=== PATIENT | male | born 1960 | race Caucasian/White ===

== ENCOUNTER 2017-03-24 12:20 | Inpatient (IN) ==
--- NOTE | 2017-03-24 12:42 | PDOC ---
Lower Extremity Injury HPI - General Chief Complaint: Lower Extremity Problem/Injury Stated Complaint: LEG PAIN Date Seen by Provider: 03/24/17 Time Seen by Provider: 12:37 Source: POSITIVE: Patient, Spouse Exam Limitations: POSITIVE: No limitations Nurse's Notes Reviewed & Considered: Yes - History of Present Illness Initial Comments: This is a well-developed, obese, pleasant, 56-year-old male, complaining of right calf pain. Patient with recent history of cellulitis in his left leg was hospitalized and released approximately a week ago from . After returning home, Wednesday a week ago, then on Wednesday he developed excruciating pain in his right calf that was transient. He subsequently reports the followed up with his primary care physician and an ultrasound was done showing no DVT present. This morning he had return of pain that he states is debilitating. He is unable to stand or walk when the pain happens. Of note he has bruising on his posterior calf right leg. He has positive Homans sign. He is presently on Eliquis. Have you received a tetanus shot in the past 10 years?: No Body Location Affected: REPORTS: Lower Extremity (R) Timing: REPORTS: Abrupt Duration: 1 hour Severity: Severe Quality: REPORTS: "Pain", Sharpness, Stabbing, Throbbing Location at Time of Onset: REPORTS: Home Context of Injury: DENIES: Fall, Twist, Direct Blow, Incision, Burn, Crush, Stab , Prolonged Pressure on Ext, Other Location of Injury: REPORTS: Leg (R) (Right calf) Modifying Factors: worse with: Nothing Exacerbates, Walking, Movement, Rest, Ice , Nothing Relieves, Other Associated Symptoms: REPORTS: Unable to Bear Weight Any Prior Injuries Related to Current Complaint?: No - Patient Home Medications Home Medications: Home Medications aspirin 81 mg tablet,delayed release 81 mg PO QDAY tab 11/30/16 furosemide 40 mg tablet 40 mg PO QDAY #90 tab 11/30/16 potassium chloride ER 20 mEq tablet,extended release(part/cryst) 20 meq PO QDAY #90 tab 11/30/16 venlafaxine ER 150 mg capsule,extended release 24 hr 150 mg PO QDAY cap Apixaban [Eliquis] 5 mg PO BID 03/24/17 Multivitamin [Men's Multi-Vitamin] 1 ea PO DAILY 03/24/17 Vit D3-Vit K/Berberine/Hops [Ostera Tablet] 1 ea PO DAILY 03/24/17 - Patient Allergies Allergies/Adverse Reactions: Allergies 3 Allergy/AdvReac Type Severity Reaction Status Date / Time No Known Drug Allergies Allergy NOT Verified 03/24/17 12:33 APPLICABLE Past Medical History - heen HEENT History: Denies History Cardiovascular History: DVTs Additional Cardiovasular History: In left groin due to injury, PERICARDITIS Respiratory History: Pneumonia, Snoring Additional Respiratory History: RECURRENT MAXILLARY SINUSITIS,BRONCHITIS Gastrointestinal History: Diverticulitis Genitourinary History: Kidney Stones Additional Genitourinary History: 2001 Endocrine History: Denies History Musculoskeletal History: Arthritis, Other (please comment) Prosthesis or Implant: No Additional Musculoskeletal History: 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 SIG LE ,VENOUS INCOMPETENCE,MORBID OBESITY Neurological History: Denies History Blood Disorders: Anemia Additional Blood Disorders History: Was told that by [facility] Psychiatric History: Depression, PTSD History of Sexually Transmitted Diseases: No Cancer History: Denies History History of MDRO: No History of Other Communicable Diseases: Yes (Varicella) Alcohol Use: Occasionally In the Past 12 Months, Have Used or Abuse Any Substance: None Previous Surgical History: Yes Type / Date of Surgery: R elbow cyst 1983/[place] teeth/Removal of impacted tooth in 1973 Anesthesia Reactions: No Malignant Hyperthermia: No Significant Family History: Other (please comment) Additional Family History: POLIO,IBS,RHEUMATIC FEVER ROS - Limitations ROS Limitations: No Limitations Constitution: REPORTS: Denies Symptoms Cardiovascular: REPORTS: Denies Cardiac Symptoms Respiratory: REPORTS: Denies Resp Symptoms Neurological: REPORTS: Denies Neuro Symptoms Gastrointestinal: REPORTS: Denies GI Symptoms Endocrine: REPORTS: Denies Symptoms Musculoskeletal: REPORTS: Lower Extremity Swelling (With right calf pain and bruising) Genitourinary: REPORTS: Denies Symptoms Eyes: REPORTS: Denies Symptoms ENT: REPORTS: Denies Symptoms Skin: REPORTS: Denies Skin Symptoms Lympathic: REPORTS: Denies Lympathic Symptoms Immunologic: POSITIVE: Denies Symptoms Psychiatric: POSITIVE: Denies Psych Symptoms Lower Ext Complaint Exam - General Appearance General Appearance: POSITIVE: Alert, Cooperative, No Acute Distress, No Evidence of Trauma - Extremities Lower Extremity: POSITIVE: Normal ROM, Normal Temperature, Skin Intact, Soft Tissue Tenderness, Swelling, Ecchymosis Lower Extremity Ligament: NEGATIVE: Pain on Anterior Drawer, Pain on Posterior Drawer, Laxity on Anterior Drawer, Laxity w/Posterior Drawer, Pain on Medial Stress, Pain on Lateral Stress, Laxity on Medial Stress, Laxity on Lateral Stress, Other Gait: POSITIVE: Limited by Pain Neurovascular/Tendon: POSITIVE: Sensation Normal, Motor Normal, No Vascular Compromise Skin: POSITIVE: Warm, Dry - HEENT HEENT: POSITIVE: Head Inspection Nml, Eyes Inspection Nml, Ears Inspection Nml, Nose Inspection Nml, Oral/Dental Inspect. Nml, Pharynx Inspect. Nml, PERRL, EOMI - Neck / Back Neck/Back: POSITIVE: Normal Inspection, Non-Tender, Painless ROM - Respiratory / CVS Respiratory / CVS: POSITIVE: Chest Non Tender, No Ecchymosis, Breath Sounds Normal, No Respiratory Distress, Heart Sounds Normal, Regular Rate/Rhythm - Abdomen Abdomen: Soft: (All Quadrants), Normal Bowel Sounds: (All Quadrants), Denies Tenderness: (All Quadrants), No Splenomegaly: (All Quadrants), No Hepatomegaly: (All Quadrants), No Guarding: (All Quadrants), No Rebound: (All Quadrants), No Palpable Pulse: (All Quadrants), No Palpabale Mass: (All Quadrants), No Distention: (All Quadrants), No Rigidity: (All Quadrants) Procedures - Laceration/Wound Repair Did patient have a laceration repair: No Lower Ext Complaint Progress - Results Reviewed by me Xrays/CTs/US Reviewed by me: Yes Discussed with Radiologist: Yes Lab Results Reviewed by Me: Yes CBC and BMP: 03/24/17 14:00 03/24/17 14:00 - Patient's Progress Pain Medication Addressed: POSITIVE: Yes Re-Examine Time:: 15:04 Status: POSITIVE: Improved MDM / ED Course: Patient was evaluated, an IV started, blood drawn and sent to the lab for studies, ultrasound of his right lower extreme he was obtained. Findings: Ultrasound shows no DVT present, there is present edema in the gastrocnemius. CBC shows white count of 4 with anemia present. BNP is elevated at 350. Assessment: #1 cellulitis, presently on IV antibiotics. #2 increased edema and swelling in the right calf. #3 anemia. Plan: Admission. - Consult Consult (If Yes, Name of Consulting MD & Time Called): Yes (Dr. Ramirez, 1433 hrs) Consulting [facility] will see pt:: [facility] Admit Counseled: POSITIVE: Patient, Family, RE: Lab Results, RE: Radiology Results, RE : DX, RE: Need for F/U Patient Care Time - Estimated PCT Patient Care Time (In Minutes): 45 Vital Signs - Recent Vital Signs Vital Signs: Vital Signs (Last 8 hours) Temp Pulse Pulse Resp BP BP Pulse Ox 03/24/17 14:36 96.8 F 79 18 124/85 92 03/24/17 12:00 96.8 F 80 18 124/85 92 - VS Reviewed Vital Signs Reviewed: Yes Discharge Clinical Impression: Anemia, Leg pain, Cellulitis, Lymphedema Discharge Disposition: Admit to Inpatient Condition: Stable Follow Up With: HANNA FUENTES [Primary Care Provider] - Date Decision to Admit to Inpatient: 03/24/17 Time Decision to Admit to Inpatient: 16:04
[2017-03-24] MEDS ORDERED: HEPARIN 500 UNIT/5 ML SYRINGE FOR CENTRAL LINE IVP ONE ×4 (13:48→22:18)
[2017-03-24 14:10] LABS: BASOPHILS # (AUTO) 0.02 10*3/UL; BASOPHILS % (AUTO) 0.4 % (0-1); EOSINOPHILS # (AUTO) 0.11 10*3/UL; EOSINOPHILS % (AUTO) 2.4 % (0-8); Hematocrit [HCT] 31.9 % (42.0-52.0); Hemoglobin [HGB] 9.7 g/dL (14.0-18.0); LYMPHOCYTES # (AUTO) 0.63 10*3/uL; MEAN CORPUSCULAR HEMOGLOBIN 28.1 PG (27-31); MEAN CORPUSCULAR HGB CONC 30.4 g/dL (33-37); MEAN CORPUSCULAR VOLUME 92.5 FL (80-90); MEAN PLATELET VOLUME 9.3 FL (7.4-12.2); MONOCYTES # (AUTO) 0.53 10*3/UL (0.3-0.8); MONOCYTES % (AUTO) 11.6 % (5-15); NEUTROPHILS # (AUTO) 3.26 10*3/UL; NEUTROPHILS % (AUTO) 71.1 % (50-80); RED BLOOD COUNT 3.45 10^6/uL (4.70-6.10)
[2017-03-24 14:13] LABS: PLATELET MORPHOLOGY COMMENT NORMAL MORPHOLOGY (NORM); RBC MORPHOLOGY COMMENT NORMAL MORPHOLOGY (NORM); WBC MORPHOLOGY COMMENT NORMAL MORPHOLOGY (NORM)
--- NOTE | 2017-03-24 14:14 | DI ---
US Up/Low Ext Veins U/L or Ltd,03/24/2017 12:36 PM: Clinical History: Right lower extremity swelling. Previous Exam: None at this facility. Findings: Multiple grayscale and color Doppler sonographic images are obtained of the deep veins of the right l ower extremity. The common femoral vein demonstrated complete coaptation upon graded compression with normal flow, respiratory variation and augmentation. The superficial femoral vein was normal proximally with normal coaptation upon graded compression. Th e vein could not be compressed, but this was believed to be due to body habitus rather than inability for compression. There was normal flow throughout the superficial femoral vein without any evidence of obstruction. There is normal respiratory variation and mentation. The popliteal vein is normal with normal compression and augmentation. The area of maximum tenderness correspond with a large amount of edema within the subcutaneous fat. T here is no large fluid collection. There is a large superficial vein identified with slow flow within the cyst. Of tenderness consistent with a venous varix. Impression: 1. Limited exam with no evidence of deep venous thrombosis. 2. Swelling in the posterior calf appears to be a large amount of subcutaneous edema. No large fluid collection identified.
[2017-03-24 14:17] LABS: BLOOD UREA NITROGEN 12 mg/dL (7-22); BUN/CREATININE RATIO 17.14 (6-20); SERUM ALBUMIN 3.2 g/dL (3.5-4.8)
[2017-03-24] MEDS ORDERED: ONDANSETRON 4 MG/2 ML VIAL IVP ONE (14:31)
[2017-03-24] MEDS ORDERED: LORazepam 2 MG/1 ML VIAL IM ONE (14:31)
[2017-03-24] MEDS ORDERED: KETOROLAC 15 MG/1 ML VIAL IVP ONE (14:31)
[2017-03-24] MEDS ORDERED: NORMAL SALINE 10 ML SYRINGE FLUSH IVP PRN (14:55)
[2017-03-24] MEDS ORDERED: CALCIUM CARBONATE 500 MG (TUMS) CHEWABLE TABLET PO PRN (16:43)
[2017-03-24] MEDS ORDERED: LIDOCAINE W/ SODIUM BICARB 0.5 ML SYR SUBD PRN (16:43)
[2017-03-24] MEDS ORDERED: ACETAMINOPHEN 325 MG TABLET PO PRN (16:43)
[2017-03-24] MEDS ORDERED: DOCUSATE 100 MG CAPSULE PO PRN (16:43)
[2017-03-24] MEDS ORDERED: ONDANSETRON 4 MG/2 ML VIAL IVP PRN (16:43)
--- NOTE | 2017-03-24 19:45 | DI ---
XR TIB/FIB 2VW,03/24/2017 6:52 PM: Clinical History: Right calf pain. Previous Exam: February 02, 2013 Findings: 4 views of the right tibia and fibula are obtained, and demonstrate anatomic alignment without fractu res. There are some phleboliths noted within the subcutaneous fat. The anterior compartment demonstrates some osteophyte formation involving the undersurface of the pat meghana. There is also some osteophyte formation involving the medial tibial plateau. Impression: Degenerative changes of the medial and anterior compartments as above. No fractures.
--- NOTE | 2017-03-24 19:56 | PDOC ---
HPI - History of Present Illness Date of Service: 03/24/17 Time of Service: 19:00 Chief Complaint: Right calf pain History of Present Illness: This very pleasant 56-year-old male with morbid obesity, chronic lymphedema, and depression is well-controlled, and a recent left lower extremity cellulitis. He states that the cellulitis is been improving, but when he was at [facility], he was given several laxatives and he had to use the restroom fairly urgently, and as he swung over the bed, he smacked his right calf on the bed rail. It has hurt to walk and to keep his foot flat since that time. The pain is been gradually getting worse, but is not accompanied with any worsening fevers, chills, nausea or vomiting. He's not had a pain in the calf like this before. He came in for evaluation today as he's had difficulty getting out of his chair and has had decreased mobility due to this calf pain. His medications have only been doubling the pain and have not been controlling it. I spoke with both the radiologist and with orthopedics regarding this patient. The patient had an ultrasound done in the emergency room that did not show any evidence of vein compression and showed mainly subcutaneous edema. However when I spoke with the radiologist, there was no evidence of any compartment fluid, or deep fluid or hematoma or muscular edema. The patient exceeds the weight limit for the tables here for CT scanning or MRI scanning for further diagnostic imaging if planned. I got an x-ray of the tibia and fibula as well and it was negative for any acute fractures. It was felt that the patient might do better with physical therapy but I think in an acute setting, it was unclear whether or not there could be something going on here such as a compartment syndrome. I did a Doppler pulses and pulses are intact bilaterally., But the right foot is slightly cooler on exam versus the left. The patient attributed that to his right foot not being covered in the emergency room. The patient was using Percocet at home for pain, but this was from a prior issue and the Percocet was fairly dated. Past Medical History Medical History: Depression, morbid obesity, chronic venous insufficiency, recent pulmonary emboli, provoked, superficial DVT left side that went to the junction of the common femoral vein. Obstructive sleep apnea. Surgical History: 1. Prior extremity surgery. Pertinent Family History: Significant for obesity. He's also learned that one of his brothers has had several bouts of soft tissue skin infections. Past Social History: Does not currently smoke or drink. . No children. Tobacco Use: Never Smoker In the Past 12 Months, Have Used or Abuse Any of the Following Substance: None Alcohol Use: None Medication / Allergies Home Medications: Home Medications 3 Medication Instructions Recorded Confirmed Type aspirin 81 mg tablet,delayed 81 mg PO QDAY tab 11/30/16 03/24/17 History release furosemide 40 mg tablet 40 mg PO QDAY #90 tab 11/30/16 03/24/17 Rx potassium chloride ER 20 mEq 20 meq PO QDAY #90 tab 11/30/16 03/24/17 Rx tablet,extended release(part/cryst) venlafaxine ER 150 mg 150 mg PO QDAY cap 11/30/16 03/24/17 History capsule,extended release 24 hr Apixaban [Eliquis] 5 mg PO BID 03/24/17 03/24/17 History Multivitamin [Men's Multi-Vitamin] 1 ea PO DAILY 03/24/17 03/24/17 History Vit D3-Vit K/Berberine/Hops 1 ea PO DAILY 03/24/17 03/24/17 History [Ostera Tablet] Allergies/Adverse Reactions: Allergies 3 Allergy/AdvReac Type Severity Reaction Status Date / Time No Known Drug Allergies Allergy NOT Verified 03/24/17 17:37 APPLICABLE Review of Systems - Constitutional Constitutional: REPORTS: Negative System Review - Integumentary Integumentary: REPORTS: Other (Cellulitis has improved.) - Respiratory Respiratory: REPORTS: Negative System Review - Cardiovascular Cardiovascular: REPORTS: Negative System Review - Gastrointestinal Gastrointestinal / Abdominal: REPORTS: Negative System Review - Genitourinary Genitourinary: REPORTS: Negative System Review - Musculoskeletal Musculoskeletal: REPORTS: Calf Pain - Hematlogic / Lymphatic Hematologic / Lymphatic: REPORTS: Other (Pulmonary emboli as mentioned.) - Neurological Neurologic: REPORTS: Negative System Review - Psychiatric Psychiatric: REPORTS: Depressed (Well-controlled.) Exam - Vitals Vital Signs: Vital Signs Temperature 98.7 F Temperature Source Oral Pulse Rate [Pulse Oximeter 82 Bilateral Radial] Pulse Rate 78 Respiratory Rate 14 Blood Pressure [Right Arm] 121/49 Blood Pressure 126/70 Pulse Ox 98 Oxygen Delivery Method Room Air Height 6 ft 1 in Weight 408 lb - General General Appearance: No Acute Distress, Cooperative, Morbidly Obese - Head Head Exam: Normal Inspection, Normocephalic, Atraumatic - Eye Eye Exam: POSITIVE: No Scleral Icterus - ENT ENT Exam: POSITIVE: Mucous Membranes Moist - Neck Neck Exam: Normal Inspection - Respiratory Respiratory Exam: POSITIVE: Clear to Auscultation - Bilaterally, Breathing Non Labored - Cardiovascular Cardiovascular Exam: POSITIVE: RRR, No Murmur, No Clicks, No Gallops, No Rubs, No JVD - GI/Abdominal GI/Abdominal Exam: POSITIVE: Normal Bowel Sounds, Non Tender, Non Distended, Soft - Rectal Rectal Exam: POSITIVE: Deferred - External Exam: POSITIVE: Deferred - Extremities Extremities Exam: POSITIVE: Calf Tenderness, +2 Edema Additional Extremities Exam Details: The erythema on the left lower extremity has significantly improved from prior hospital stay. In fact this left foot appears more normal colored and senescent changes consistent with chronic venous stasis are noted. Dorsalis pedis pulses are dopplered bilaterally and are strong and regular. The right calf is tender to palpation, no erythema or anything to suggest acute infection. He has limited dorsiflexion and plantar flexion on the right foot. On the left medial thigh just superior to the knee, patient still has increased edema/fluid collection that's tender to palpation, but no increased warmth to that area to suggest an abscess. - Neurological Neurological Exam: POSITIVE: Alert, Oriented x 3, No Facial Droop, Speech Intact / Clear - Psychiatric Psychiatric Exam: POSITIVE: Normal Affect, Normal Mood - Central Line Examination Central Line Present on Admission: Yes Central Line Type: PICC Line (Left upper extremity, without erythema or exudate or surrounding soft tissue problems.) Results - Labs CBC and BMP: 03/24/17 14:00 03/24/17 14:00 Additional Lab Results: 03/10/17 03/10/17 03/24/17 04:46 04:46 14:00 PT 13.5 H INR 1.27 Magnesium Iron 36 L TIBC 201 L % Saturation 18 Total Bilirubin AST ALT Total Creatine Kinase NT-Pro-B Natriuret Pep Total Protein Albumin Globulin Vitamin B12 946 H Serum Folate 6.04 03/24/17 03/24/17 14:00 16:00 PT INR Magnesium 1.7 Iron TIBC % Saturation Total Bilirubin 0.7 AST 29 ALT 9 L Total Creatine Kinase 144 NT-Pro-B Natriuret Pep 354 H Total Protein 7.6 Albumin 3.2 L Globulin 4.4 H Vitamin B12 Serum Folate Assessment and Plan - Patient Problems (1) Cellulitis Current Visit: No Status: Acute Code(s): L03.90 - Cellulitis, unspecified (2) Lymphedema Current Visit: Yes Status: Acute Code(s): I89.0 - Lymphedema, not elsewhere classified (3) History of pulmonary embolism Current Visit: Yes Status: Acute Code(s): Z86.711 - Personal history of pulmonary embolism (4) Morbid obesity Current Visit: No Status: Chronic Onset Date: 03/10/11 Code(s): E66.01 - Morbid (severe) obesity due to excess calories (5) Depression, major, in remission Current Visit: No Status: Chronic Onset Date: 11/05/15 Code(s): F32.5 - Major depressive disorder, single episode, in full remission - Assessment / Plan Additional Assessment/Plan Details: Admit the patient. I'll have the patient continue his home medications, right for pain medications to help manage right lower extremity pain, and I will consult orthopedics. I spoke with Dr. Acosta, and he thinks it would be prudent for us to explore further for possible muscle tears or strains using MRI. Given weight restrictions, will check on whether or not the patient would be able to do that here or whether we will have to arrange this to be done at another facility. Continue outpatient antibiotics, Ancef, 2 g IV every 8 hours. He has this already from his infectious disease provider, and in lieu of using the antibiotics in the hospital, we will have him use his home medications as he's already paid for those. Nonweightbearing right lower extremity for now. Given his morbid obesity, this patient will not even be able to move around without assistance due to his weight. He will need help until we can further delineate this differential diagnosis. Check labs in morning. PT and OT consult. Plan above discussed with patient and , and they agreed. The patient's weakness is been so profound in the setting of a cellulitis, his obesity, and development of right lower extremity pain, that he may need swing bed for further management.
[2017-03-24] MEDS: Apixaban 5 MG TABLET PO SCH (20:03)
--- NOTE | 2017-03-24 20:59 | CONSULT ---
Consult Note - Consult Consult Date: 03/24/17 Reason for Consult: Orthopedic Consult Requesting Physician: Dr. Ezequiel Landa Primary Care Provider: Ozzy Tobin MD - History of Present Illness History of Present Illness: Patient is a 56-year-old male with multiple medical problems including chronic venous stasis issues in his lower extremities intermittent bouts of cellulitis recent pulmonary embolism with deep vein thromboses in the left lower extremity and recent hospitalization for this therapeutically treated with our question now on eloquence 5 mg twice a day. Patient has a very complex history in that [place] [facility] [place] with what was felt to be chronic venous types changes combined with a cellulitis. Proximally 5 days later the patient was transferred [place] [facility] [place] embolism and deep vein thromboses which was identified. Patient was hospitalized in [place] until March 20. While in the hospital to [facility] patient admitted to the bathroom suddenly for bowel movement and while getting out of bed he swelling in the left leg which had the deep vein thromboses and over the side of the bed which had an elevated rim in order to prevent people from getting out but his right leg hit the side of this and he had pain associated with it at that time. Patient notes that that probably happened somewhere towards the end of February. He notes that it hurt for a short time and then went away and was doing fine until a few days later when he had severe cramping pain in the calf which is described as similar to waking at night with cramping in the calf musculature and described as 10 over 10 pain. This eventually improved to the point where he had some achiness and posterior cramping type discomfort but was very tolerable. Patient had a similar episode around March 20 that behaved in the similar manner. Patient then had another episode this morning when he first got out of bed he put his foot down and had severe cramping type pain in the calf musculature that he described as 10 over 10 that he states was not helped by oral narcotic medications. Patient does not tolerate oral narcotic medication well so he was taken half of a Percocet tablet approximately 2.5 mg in was not taking this often because of his difficulty tolerating these medications. Patient came to the emergency room because of the continued symptoms and was evaluated and admitted. At the current time the patient has not had any oral pain medication nor has he had any IV pain medication. He describes his pain as maybe 2 out of 10 in the sitting position but certainly with any weightbearing activities escalates significantly and notes with certain positions of the ankle produce pain in the calf also he had an ultrasound which showed a lot of edema within the soft tissues no clear abnormality of the calf musculature no evidence of deep vein thromboses. Patient notes he has mild bruising of the back aspect of the calf where he hit his leg on the rim of the bed while at [facility]. Past Medical History Medical History: Depression, morbid obesity, chronic venous insufficiency, recent pulmonary emboli, provoked, superficial DVT left side that went to the junction of the common femoral vein. Obstructive sleep apnea. Surgical History: 1. Prior extremity surgery. Pertinent Family History: Significant for obesity. He's also learned that one of his brothers has had several bouts of soft tissue skin infections. Past Social History: Does not currently smoke or drink. . No children. Tobacco Use: Never Smoker In the Past 12 Months, Have Used or Abuse Any of the Following Substance: None Alcohol Use: None Medication / Allergies Home Medications: Home Medications 3 Medication Instructions Recorded Confirmed Type aspirin 81 mg tablet,delayed 81 mg PO QDAY tab 11/30/16 03/24/17 History release furosemide 40 mg tablet 40 mg PO QDAY #90 tab 11/30/16 03/24/17 Rx potassium chloride ER 20 mEq 20 meq PO QDAY #90 tab 11/30/16 03/24/17 Rx tablet,extended release(part/cryst) venlafaxine ER 150 mg 150 mg PO QDAY cap 11/30/16 03/24/17 History capsule,extended release 24 hr Apixaban [Eliquis] 5 mg PO BID 03/24/17 03/24/17 History Multivitamin [Men's Multi-Vitamin] 1 ea PO DAILY 03/24/17 03/24/17 History Vit D3-Vit K/Berberine/Hops 1 ea PO DAILY 03/24/17 03/24/17 History [Ostera Tablet] Allergies/Adverse Reactions: Allergies 3 Allergy/AdvReac Type Severity Reaction Status Date / Time No Known Drug Allergies Allergy NOT Verified 03/24/17 17:37 APPLICABLE Exam - - Exam: Examination shows that the patient is a well-developed well-nourished male with a markedly elevated BMI comfortable in bed at time of examination and history taking. Patient able to speak and a full clear sentences he is alert and oriented 3. Did not appear to be in any unusual degree of discomfort or pain. Examination of the lower extremity the patient has a marked amount of pitting edema. He has no pain or discomfort with palpation along the anterior lateral muscle compartments. Patient has an area of a very small superficial healed abrasion on the posterior aspect of the calf about 12 cm below the popliteal fossa crease there is a very faint bruising in that area but the skin blanches and look healthy he is quite tender directly in the midportion of her calf and this gets last when you go medially and laterally to this. Of involvement is approximately 8 cm wide to 10 cm wide by about a corresponding 8 cm in length pop at the level of the knee joint in the popliteal fossa with palpation and on the upper portion of the gastrocs he has no pain with palpation he also has no pain distal to this area all along the Achilles the gastrocnemius and soleus region. He can move his toes actively to full extension and full flexion with no pain or discomfort with passive stretch E toes does not have any pain or discomfort you can dorsiflex him to neutral position where he has pain in the calf region. He can plantar flex him to about 40 any has a little bit of pain but less so in the musculature. Patient was strongly pulses brisk refill normal sensory exam and generally normal motor examination chronic venous stasis changes in the lower extremity. No areas of skin breakdown. Achilles tendon is intact Radiographs of the tibia show a lot of soft tissue edema in the subcutaneous tissue but no evidence of fractures or dislocations. Ultrasound report was that the patient had a lot of soft tissue/subcutaneous tissue edema the musculature looked generally benign posteriorly there was a vein was very sluggish blood flow. No evidence of deep vein thromboses. Laboratory Results 03/24/17 03/24/17 03/24/17 Range/Units 14:00 14:00 14:00 WBC 4.58 L (4.8-10.8) 10^3/uL RBC 3.45 L (4.70-6.10) 10^6/uL Hgb 9.7 L (14.0-18.0) g/dL Hct 31.9 L (42.0-52.0) % MCV 92.5 H (80-90) FL MCH 28.1 (27-31) PG MCHC 30.4 L (33-37) g/dL RDW Std Deviation 48.0 (39-50) fL RDW Coeff of Roxanne 14.9 H (11.5-14.5) % Plt Count 263 (140-350) 10*3/uL MPV 9.3 (7.4-12.2) FL Immature Gran % (Auto) 0.7 (0-5) % Neut % (Auto) 71.1 (50-80) % Lymph % (Auto) 13.8 (10-50) % [place] % (Auto) 11.6 (5-15) % Eos % (Auto) 2.4 (0-8) % Baso % (Auto) 0.4 (0-1) % Immature Gran # (Auto) 0.03 10*3/UL Neut # (Auto) 3.26 10*3/UL Lymph # (Auto) 0.63 10*3/uL [place] # (Auto) 0.53 (0.3-0.8) 10*3/UL Eos # (Auto) 0.11 10*3/UL Baso # (Auto) 0.02 10*3/UL WBC Morphology Comment Normal morphology (NORM) Plt Morphology Comment Normal morphology (NORM) RBC Morph Comment Normal morphology (NORM) PT 13.5 H (9.7-11.4) secs INR 1.27 (0.00-5.90) N/A Sodium 137 (135-145) meq/L Potassium 4.0 (3.8-5.2) meq/L Chloride 99 (98-112) meq/L Carbon Dioxide 30 (23-33) meq/L Anion Gap 8 (5-20) BUN 12 (7-22) mg/dL Creatinine 0.7 (0.70-1.50) mg/dL Estimated GFR > 60 (>60 ml/min/1.73m(2)) BUN/Creatinine Ratio 17.14 (6-20) Glucose 95 (78-110) mg/dL Calculated Osmolality 283.0 (267-292) mOsm/kg Calcium 8.2 L (8.7-10.7) mg/dL Magnesium 1.7 (1.6-2.4) mg/dL Total Bilirubin 0.7 (0.3-1.2) mg/dL AST 29 (21-57) IU/L ALT 9 L (21-72) IU/L Alkaline Phosphatase 144 H (38-126) IU/L Total Creatine Kinase (55-170) IU/L NT-Pro-B Natriuret Pep 354 H (0-125) PG/ML Total Protein 7.6 (6.1-8.0) g/dL Albumin 3.2 L (3.5-4.8) g/dL Globulin 4.4 H (2.50-4.10) g/dL Albumin/Globulin Ratio 0.70 L (1.3-2.0) mg/g 03/24/17 Range/Units 16:00 WBC (4.8-10.8) 10^3/uL RBC (4.70-6.10) 10^6/uL Hgb (14.0-18.0) g/dL Hct (42.0-52.0) % MCV (80-90) FL MCH (27-31) PG MCHC (33-37) g/dL RDW Std Deviation (39-50) fL RDW Coeff of Roxanne (11.5-14.5) % Plt Count (140-350) 10*3/uL MPV (7.4-12.2) FL Immature Gran % (Auto) (0-5) % Neut % (Auto) (50-80) % Lymph % (Auto) (10-50) % [place] % (Auto) (5-15) % Eos % (Auto) (0-8) % Baso % (Auto) (0-1) % Immature Gran # (Auto) 10*3/UL Neut # (Auto) 10*3/UL Lymph # (Auto) 10*3/uL [place] # (Auto) (0.3-0.8) 10*3/UL Eos # (Auto) 10*3/UL Baso # (Auto) 10*3/UL WBC Morphology Comment (NORM) Plt Morphology Comment (NORM) RBC Morph Comment (NORM) PT (9.7-11.4) secs INR (0.00-5.90) N/A Sodium (135-145) meq/L Potassium (3.8-5.2) meq/L Chloride (98-112) meq/L Carbon Dioxide (23-33) meq/L Anion Gap (5-20) BUN (7-22) mg/dL Creatinine (0.70-1.50) mg/dL Estimated GFR (>60 ml/min/1.73m(2)) BUN/Creatinine Ratio (6-20) Glucose (78-110) mg/dL Calculated Osmolality (267-292) mOsm/kg Calcium (8.7-10.7) mg/dL Magnesium (1.6-2.4) mg/dL Total Bilirubin (0.3-1.2) mg/dL AST (21-57) IU/L ALT (21-72) IU/L Alkaline Phosphatase (38-126) IU/L Total Creatine Kinase 144 (55-170) IU/L NT-Pro-B Natriuret Pep (0-125) PG/ML Total Protein (6.1-8.0) g/dL Albumin (3.5-4.8) g/dL Globulin (2.50-4.10) g/dL Albumin/Globulin Ratio (1.3-2.0) mg/g Vital Signs (24 hrs) Temp Pulse Pulse Pulse Resp BP BP 03/24/17 20:04 97.2 F 82 20 03/24/17 19:00 80 82 03/24/17 17:21 98.7 F 82 14 03/24/17 17:05 98.1 F 78 126/70 03/24/17 14:36 96.8 F 79 18 124/85 03/24/17 12:20 96.8 F 80 18 BP Pulse Ox 03/24/17 20:04 106/48 93 03/24/17 19:00 03/24/17 17:21 121/49 98 03/24/17 17:05 94 03/24/17 14:36 92 03/24/17 12:20 124/85 92 - Vitals Vital Signs: Vital Signs Temperature 97.2 F Temperature Source Temporal Artery Scan Pulse Rate [Pulse Oximeter 82 Bilateral Radial] Pulse Rate 78 Respiratory Rate 20 Blood Pressure [Right Arm] 106/48 Blood Pressure 126/70 Pulse Ox 93 Oxygen Delivery Method Room Air Height 6 ft 1 in Weight 185.066 kg Results - Labs CBC and BMP: 03/24/17 14:00 03/24/17 14:00 Assessment and Plan - Assessment / Plan Additional Assessment/Plan Details: Impression: Chronic venous stasis changes lower extremities with history of deep vein thromboses and pulmonary embolism and recent past currently anticoagulated on eloquis. No clear deep vein thromboses visualized though this could be difficult to low the popliteal fossa with visualization and there was also a potential question of a slow blood flow in the posterior venous structures in the subcutaneous tissues. I do not suspect in my opinion that the patient has compartment syndrome based on the history and clinical exam. Plan: Patient will be observed carefully since his symptoms have improved considerably down to a level II at rest we will follow him along. I suspect that this is likely a muscle strain I think to help delineate this better it may be prudent to evaluate this further with an MRI of the lower extremity to evaluate the gastrocnemius musculature fascia and surrounding tissue. I think he can mobilize with therapy and nursing but I would have him nonweightbearing on the involved right side. Elevation and protection at the current time
[2017-03-24] MEDS: traMADol 50 MG TABLET PO PRN (22:53)
[2017-03-24] MEDS: Methocarbamol Tab 500 MG TAB PO PRN (22:53)
[2017-03-24] MEDS: CEFAZOLIN IV SCH (22:54)
[2017-03-24] MEDS: [UNRECOGNIZED DRUG - OTHER] IV SCH (22:54)
[2017-03-25] MEDS: Methocarbamol Tab 500 MG TAB PO PRN ×2 (05:34→18:22)
[2017-03-25] MEDS: CEFAZOLIN IV SCH ×3 (05:34→20:59)
[2017-03-25] MEDS: [UNRECOGNIZED DRUG - OTHER] IV SCH ×3 (05:34→20:59)
[2017-03-25] MEDS: traMADol 50 MG TABLET PO PRN ×2 (05:34→18:22)
[2017-03-25] MEDS ORDERED: HEPARIN 500 UNIT/5 ML SYRINGE FOR CENTRAL LINE IVP PRN (05:35)
[2017-03-25 05:39] LABS: BASOPHILS # (AUTO) 0.02 10*3/UL; BASOPHILS % (AUTO) 0.5 % (0-1); EOSINOPHILS # (AUTO) 0.07 10*3/UL; EOSINOPHILS % (AUTO) 1.7 % (0-8); Hematocrit [HCT] 29.1 % (42.0-52.0); Hemoglobin [HGB] 8.8 g/dL (14.0-18.0); LYMPHOCYTES # (AUTO) 0.63 10*3/uL; MEAN CORPUSCULAR HGB CONC 30.2 g/dL (33-37); MEAN CORPUSCULAR VOLUME 92.7 FL (80-90); MEAN PLATELET VOLUME 9.3 FL (7.4-12.2); MONOCYTES # (AUTO) 0.45 10*3/UL (0.3-0.8); MONOCYTES % (AUTO) 11.2 % (5-15); NEUTROPHILS # (AUTO) 2.83 10*3/UL; NEUTROPHILS % (AUTO) 70.4 % (50-80); RED BLOOD COUNT 3.14 10^6/uL (4.70-6.10)
[2017-03-25 05:41] LABS: PLATELET MORPHOLOGY COMMENT NORMAL MORPHOLOGY (NORM); RBC MORPHOLOGY COMMENT NORMAL MORPHOLOGY (NORM); WBC MORPHOLOGY COMMENT NORMAL MORPHOLOGY (NORM)
[2017-03-25 05:46] LABS: BLOOD UREA NITROGEN 12 mg/dL (7-22); BUN/CREATININE RATIO 17.14 (6-20)
--- NOTE | 2017-03-25 08:52 | ORTHO.PROG ---
Last Taken Vital Signs: Vital Signs - Last Taken Temperature 97.7 F 03/25/17 06:58 Pulse Rate 84 03/25/17 06:58 Respiratory Rate 20 03/25/17 06:58 Blood Pressure 106/56 03/25/17 06:58 Pulse Ox 92 03/25/17 06:58 Subjective: Right calf pain has decreased considerably from yesterday Objective: Examination shows tenderness in the midportion of the calf unknown proximally over the upper portion of the gastroc heads or distally and the distal two thirds of the tibia. Dorsiflexion to neutral plantar flexion to 50 toe motion normal sensory exam is intact. No passive stretch pain. No skin breakdown. Mild ecchymosis posterior calf with a small very superficial area of abrasion may be a 4 x 4 millimeters in 2 separate areas but this looks perfectly healthy and normal Laboratory Results 03/24/17 03/24/17 03/24/17 Range/Units 14:00 14:00 14:00 WBC 4.58 L (4.8-10.8) 10^3/uL RBC 3.45 L (4.70-6.10) 10^6/uL Hgb 9.7 L (14.0-18.0) g/dL Hct 31.9 L (42.0-52.0) % MCV 92.5 H (80-90) FL MCH 28.1 (27-31) PG MCHC 30.4 L (33-37) g/dL RDW Std Deviation 48.0 (39-50) fL RDW Coeff of Roxanne 14.9 H (11.5-14.5) % Plt Count 263 (140-350) 10*3/uL MPV 9.3 (7.4-12.2) FL Immature Gran % (Auto) 0.7 (0-5) % Neut % (Auto) 71.1 (50-80) % Lymph % (Auto) 13.8 (10-50) % [place] % (Auto) 11.6 (5-15) % Eos % (Auto) 2.4 (0-8) % Baso % (Auto) 0.4 (0-1) % Immature Gran # (Auto) 0.03 10*3/UL Neut # (Auto) 3.26 10*3/UL Lymph # (Auto) 0.63 10*3/uL [place] # (Auto) 0.53 (0.3-0.8) 10*3/UL Eos # (Auto) 0.11 10*3/UL Baso # (Auto) 0.02 10*3/UL WBC Morphology Comment Normal morphology (NORM) Plt Morphology Comment Normal morphology (NORM) RBC Morph Comment Normal morphology (NORM) PT 13.5 H (9.7-11.4) secs INR 1.27 (0.00-5.90) N/A Sodium 137 (135-145) meq/L Potassium 4.0 (3.8-5.2) meq/L Chloride 99 (98-112) meq/L Carbon Dioxide 30 (23-33) meq/L Anion Gap 8 (5-20) BUN 12 (7-22) mg/dL Creatinine 0.7 (0.70-1.50) mg/dL Estimated GFR > 60 (>60 ml/min/1.73m(2)) BUN/Creatinine Ratio 17.14 (6-20) Glucose 95 (78-110) mg/dL Calculated Osmolality 283.0 (267-292) mOsm/kg Calcium 8.2 L (8.7-10.7) mg/dL Magnesium 1.7 (1.6-2.4) mg/dL Total Bilirubin 0.7 (0.3-1.2) mg/dL AST 29 (21-57) IU/L ALT 9 L (21-72) IU/L Alkaline Phosphatase 144 H (38-126) IU/L Total Creatine Kinase (55-170) IU/L NT-Pro-B Natriuret Pep 354 H (0-125) PG/ML Total Protein 7.6 (6.1-8.0) g/dL Albumin 3.2 L (3.5-4.8) g/dL Globulin 4.4 H (2.50-4.10) g/dL Albumin/Globulin Ratio 0.70 L (1.3-2.0) mg/g 03/24/17 03/25/17 03/25/17 Range/Units 16:00 05:33 05:33 WBC 4.02 L (4.8-10.8) 10^3/uL RBC 3.14 L (4.70-6.10) 10^6/uL Hgb 8.8 L (14.0-18.0) g/dL Hct 29.1 L (42.0-52.0) % MCV 92.7 H (80-90) FL MCH 28.0 (27-31) PG MCHC 30.2 L (33-37) g/dL RDW Std Deviation 48.4 (39-50) fL RDW Coeff of Roxanne 14.9 H (11.5-14.5) % Plt Count 212 (140-350) 10*3/uL MPV 9.3 (7.4-12.2) FL Immature Gran % (Auto) 0.5 (0-5) % Neut % (Auto) 70.4 (50-80) % Lymph % (Auto) 15.7 (10-50) % [place] % (Auto) 11.2 (5-15) % Eos % (Auto) 1.7 (0-8) % Baso % (Auto) 0.5 (0-1) % Immature Gran # (Auto) 0.02 10*3/UL Neut # (Auto) 2.83 10*3/UL Lymph # (Auto) 0.63 10*3/uL [place] # (Auto) 0.45 (0.3-0.8) 10*3/UL Eos # (Auto) 0.07 10*3/UL Baso # (Auto) 0.02 10*3/UL WBC Morphology Comment Normal morphology (NORM) Plt Morphology Comment Normal morphology (NORM) RBC Morph Comment Normal morphology (NORM) PT (9.7-11.4) secs INR (0.00-5.90) N/A Sodium 137 (135-145) meq/L Potassium 4.2 (3.8-5.2) meq/L Chloride 98 (98-112) meq/L Carbon Dioxide 32 (23-33) meq/L Anion Gap 7 (5-20) BUN 12 (7-22) mg/dL Creatinine 0.7 (0.70-1.50) mg/dL Estimated GFR > 60 (>60 ml/min/1.73m(2)) BUN/Creatinine Ratio 17.14 (6-20) Glucose 90 (78-110) mg/dL Calculated Osmolality 283.0 (267-292) mOsm/kg Calcium 8.0 L (8.7-10.7) mg/dL Magnesium (1.6-2.4) mg/dL Total Bilirubin (0.3-1.2) mg/dL AST (21-57) IU/L ALT (21-72) IU/L Alkaline Phosphatase (38-126) IU/L Total Creatine Kinase 144 (55-170) IU/L NT-Pro-B Natriuret Pep (0-125) PG/ML Total Protein (6.1-8.0) g/dL Albumin (3.5-4.8) g/dL Globulin (2.50-4.10) g/dL Albumin/Globulin Ratio (1.3-2.0) mg/g Vital Signs (24 hrs) Temp Pulse Pulse Pulse Pulse Resp BP 03/25/17 06:58 97.7 F 84 20 03/25/17 05:00 98.2 F 85 20 03/24/17 20:04 97.2 F 82 20 03/24/17 19:00 80 82 03/24/17 17:21 98.7 F 82 14 03/24/17 17:05 98.1 F 78 126/70 03/24/17 14:36 96.8 F 79 18 03/24/17 12:20 96.8 F 80 18 BP BP Pulse Ox 03/25/17 06:58 106/56 92 03/25/17 05:00 107/55 92 03/24/17 20:04 106/48 93 03/24/17 19:00 03/24/17 17:21 121/49 98 03/24/17 17:05 94 03/24/17 14:36 124/85 92 03/24/17 12:20 124/85 92 Assessment: The right leg pain likely secondary to superficial dermal and fascial versus gastrocnemius start type issue. Plan: I would recommend looking at an MRI since this is the third episode where he has had sudden onset of significant pain. I think if we aren't able to look at an MRI and see that the gastrocnemius and the surrounding tissues are normal and this no other unusual situation we can be more progressive with the therapy and activities if he does have a return of some of the pain. We'll follow this closely.
[2017-03-25] MEDS: Multivitamin Tab 1 TAB PO SCH (09:01)
[2017-03-25] MEDS: VENLAFAXINE XR 75 MG CAP PO SCH (09:02)
[2017-03-25] MEDS: Apixaban 5 MG TABLET PO SCH ×2 (09:02→21:00)
[2017-03-25] MEDS: POTASSIUM CHLORIDE 20 MEQ TAB PO SCH (09:02)
[2017-03-25] MEDS: HOPS PO SCH (09:30)
[2017-03-25] MEDS: VIT D3 VIT K PO SCH (09:30)
[2017-03-25] MEDS: BERBERINE PO SCH (09:30)
[2017-03-25] MEDS ORDERED: Iron Sucrose Inj 500 MG in Sodium Chloride 0.9% 250 ML IV ONE (11:17)
[2017-03-25] MEDS: NORMAL SALINE 10 ML SYRINGE FLUSH IVP PRN (11:39)
--- NOTE | 2017-03-25 11:51 | PTI REPORT ---
Thank you for the referral of Codey Sarmiento. He was seen on 03/25/17 for an inpatient evaluation secondary to generalized weakness. SUBJECTIVE: The patient is a 56-year-old male. The patient reports he was admitted to the hospital following going to the emergency room yesterday due to uncontrolled pain. He states he was in [facility] a couple of weeks ago due to pain in his left lower extremity as well as extreme cellulitis and as a result was transferred up to [place]. He states he was recently discharged from there on Wednesday, stating he had a poor experience. He was discharged to home and overall was doing well but reports the pain had gotten so bad which led to the emergency room visit. A review of his report states multiple scans were noted and there was no blood clots at this time and there is no fracture in the right lower extremity. He states this stemmed from an incident where he hit his leg while up in [place]. Per Dr. Acosta, he believes the patient might have a mild Grade I or II muscular tear in the medial gastroc area and currently recommends weight-bearing as tolerated or toe touch weight-bearing on the right lower extremity with use of the walker. PAST MEDICAL HISTORY: Past medical history can be found in the patient's medical record. OBJECTIVE FINDINGS: General observations: Upon inspection the patient is morbidly obese. No open wounds were noted on either bilateral lower extremities. Upon inspection the patient presents with bilateral lower extremity Circ-Aid stockings to assist with bilateral lower extremity edema. The patient is independent in use of these. Bed mobility: The patient requires moderate assistance for bed mobility from supine to edge of bed. Transfers: The patient is able to perform a sit to stand transfer with assistance of raising the bed up. Pain: The patient reports a pain level at worst at 10/10 on the verbal analog scale (0=no pain, 10=worst pain) and currently an 8/10 with ambulatory activities. Ambulation: According to the nursing staff, the patient has been able to ambulate from his room to the [facility] since being admitted without the use of an assistive device. However, after speaking with Dr. Acosta the patient was issued a bariatric walker. The patient was able to perform ambulation up to 20 feet before requiring a rest break. The patient was able to ambulate with a bariatric walker, gait belt, and contact guard assist as well as verbal cues for proper walker placement and weight-bearing as tolerated on the right lower extremity. When ambulating, the patient prefers an externally rotated right lower extremity in order to avoid active dorsiflexion and plantarflexion. Strength: Strength was unable to be formally tested due to the patient's large size. ASSESSMENT: Problem List: Decreased endurance for community and household ambulation Decreased ability to perform transfers Physical Therapy Goals: To be met by discharge from inpatient: Patient will be able to ambulate up to 100 feet with modified independence with appropriate assistive device for household and community ambulation. Patient will demonstrate independence with all bed mobility and transfers for safety in order to be discharged to home. TREATMENT PLAN: Patient will be seen B.I.D during the week and one time per day over the weekend as an inpatient to address the above goals and objectives. Treatments will emphasize pool therapy for encouragement with ambulation as well as appropriate heel/toe gait pattern as well as endurance activities. INITIAL TREATMENT: Treatment today consisted of the initial evaluation followed by the patient being issued a bariatric walker and instructed in its use. He required moderate assistance for bed mobility from supine to edge of bed and was able to ambulate x10 feet before requiring the wheelchair. He was brought downstairs to therapy where he participated in pool therapy. He was able to get in and out of the pool via the stairs with verbal cues for propre step down and step up gait pattern on the stairs. When given enough time, the patient was able to perform modified independence with showering activities and required moderate assistance for lower extremities for dressing. The patient was dependent on the therapist for donning his bilateral lower extremity Circ-Aid stockings due to fatigue. The patient was wheeled upstairs via wheelchair and was able to utilize his walker x5 feet to his bed where he was able to perform bed mobility with stand by assistance from standing to supine. FLORENCIO
--- NOTE | 2017-03-25 12:50 | PDOC(PROG) ---
Date and Time of Service: 03/25/2017, 1245 Interval History: No chest pain and shortness of breath is not present. The patient states he has no nausea or vomiting and no abdominal pain. His leg pain in the right calf is slightly better, and he feels like pool therapy helped, but we still don 't know if there is any tear in the muscle. He still feels that there is significant fullness on the medial aspect of his left thigh. Objective : Data - Labs CBC and BMP: 03/25/17 05:33 03/25/17 05:33 Objective : Exam - General General Appearance: No Acute Distress, Cooperative Additional General Exam Details: Vital Signs (24 hrs) Temp Pulse Pulse Pulse Pulse Resp BP 03/25/17 11:24 97.5 F 91 20 03/25/17 06:58 97.7 F 84 20 03/25/17 05:00 98.2 F 85 20 03/24/17 20:04 97.2 F 82 20 03/24/17 19:00 80 82 03/24/17 17:21 98.7 F 82 14 03/24/17 17:05 98.1 F 78 126/70 03/24/17 14:36 96.8 F 79 18 BP BP Pulse Ox 03/25/17 11:24 113/57 96 03/25/17 06:58 106/56 92 03/25/17 05:00 107/55 92 03/24/17 20:04 106/48 93 03/24/17 19:00 03/24/17 17:21 121/49 98 03/24/17 17:05 94 03/24/17 14:36 124/85 92 - Eye Eye Exam: No Scleral Icterus - ENT ENT Exam: Mucous Membranes Moist - Respiratory Respiratory Exam: Clear to Auscultation - Bilaterally, Breathing Non Labored - Cardiovascular Cardiovascular Exam: RRR, No Murmur, No Clicks, No Gallops, No Rubs, No JVD - GI/Abdominal GI/Abdominal Exam: Normal Bowel Sounds, Non Tender, Non Distended, Soft - Extremities Extremities Exam: +2 Edema Additional Extremities Exam Details: Slightly improved dorsiflexion and plantar flexion on the right side. There is still exquisite calf tenderness with palpation. This is on the right. On the left, cellulitis does look improved. - Neurological Neurological Exam: Alert, Oriented x 3, No Facial Droop, Speech Intact / Clear Assessment and Plan - Patient Problems (1) Cellulitis Current Visit: No Status: Acute Code(s): L03.90 - Cellulitis, unspecified (2) Right calf pain Current Visit: Yes Status: Acute Code(s): M79.661 - Pain in right lower leg (3) Lymphedema Current Visit: Yes Status: Acute Code(s): I89.0 - Lymphedema, not elsewhere classified (4) History of pulmonary embolism Current Visit: Yes Status: Acute Code(s): Z86.711 - Personal history of pulmonary embolism (5) Morbid obesity Current Visit: No Status: Chronic Onset Date: 03/10/11 Code(s): E66.01 - Morbid (severe) obesity due to excess calories (6) Depression, major, in remission Current Visit: No Status: Chronic Onset Date: 11/05/15 Code(s): F32.5 - Major depressive disorder, single episode, in full remission - Assessment / Plan Additional Assessment/Plan Details: I was able to arrange an outpatient MRI scan study at one [facility] [place] has the table can handle the patient's weight. I spoke with the emergency room physician as an accepting physician for EMTALA purposes, but I expect that the patient will come straight back after his contrast with or without. The patient tells me he feels like he can tolerate an MRI scan without any further medications to sedate. We are looking for potential gastrocnemius tear, and we are also looking for potential abscess in the left lower extremity in the distal portion of the thigh , medially. Continue Ancef therapy. PT and OT. The MRI will go a long way to showing as how aggressive we can be with this patient.
[2017-03-26] MEDS: [UNRECOGNIZED DRUG - OTHER] IV SCH ×3 (05:50→21:30)
[2017-03-26] MEDS: CEFAZOLIN IV SCH ×3 (05:50→21:30)
[2017-03-26] MEDS: Apixaban 5 MG TABLET PO SCH ×2 (08:31→21:08)
[2017-03-26] MEDS: Multivitamin Tab 1 TAB PO SCH (08:31)
[2017-03-26] MEDS: VENLAFAXINE XR 75 MG CAP PO SCH (08:32)
[2017-03-26] MEDS: POTASSIUM CHLORIDE 20 MEQ TAB PO SCH (08:32)
[2017-03-26] MEDS: VIT D3 VIT K PO SCH (10:01)
[2017-03-26] MEDS: HOPS PO SCH (10:01)
[2017-03-26] MEDS: BERBERINE PO SCH (10:01)
--- NOTE | 2017-03-26 13:40 | ORTHO.PROG ---
Last Taken Vital Signs: Vital Signs - Last Taken Temperature 97.9 F 03/26/17 08:19 Pulse Rate 86 03/26/17 08:19 Respiratory Rate 20 03/26/17 08:19 Blood Pressure 95/43 03/26/17 08:19 Pulse Ox 95 03/26/17 08:19 Subjective: Patient notes the right Is doing markedly better today he did pool therapy yesterday and today and notes that he has had continued marked improvement. Objective: Examination shows that the patient Cory tenderness in the mid calf region but much less than it was previously dorsiflexion to about a neutral position plantar flexion to 40 but with no pain or discomfort no passive stretch pain. Toe motion with no pain or discomfort. MRI which was obtained by report was evidence of some edema within the musculature but no collection of blood or fluid of significance. Assessment: Right lower extremity soft tissue injury, no evidence of compartment syndrome Plan: Patient will continue to progress with physical therapy protection of the legs as needed he will continue with that treatment of his other active medical issues to include a pulmonary embolism.
[2017-03-26] MEDS: NORMAL SALINE 10 ML SYRINGE FLUSH IVP PRN (13:57)
[2017-03-26 14:33] LABS: BASOPHILS # (AUTO) 0.01 10*3/UL; BASOPHILS % (AUTO) 0.3 % (0-1); EOSINOPHILS # (AUTO) 0.12 10*3/UL; EOSINOPHILS % (AUTO) 3.2 % (0-8); Hematocrit [HCT] 29.8 % (42.0-52.0); Hemoglobin [HGB] 9.1 g/dL (14.0-18.0); LYMPHOCYTES # (AUTO) 0.55 10*3/uL; MEAN CORPUSCULAR HEMOGLOBIN 28.5 PG (27-31); MEAN CORPUSCULAR HGB CONC 30.5 g/dL (33-37); MEAN CORPUSCULAR VOLUME 93.4 FL (80-90); MEAN PLATELET VOLUME 9.2 FL (7.4-12.2); MONOCYTES # (AUTO) 0.39 10*3/UL (0.3-0.8); MONOCYTES % (AUTO) 10.5 % (5-15); NEUTROPHILS # (AUTO) 2.61 10*3/UL; NEUTROPHILS % (AUTO) 70.4 % (50-80); RED BLOOD COUNT 3.19 10^6/uL (4.70-6.10)
[2017-03-26 15:04] LABS: PLATELET MORPHOLOGY COMMENT NORMAL MORPHOLOGY (NORM)
[2017-03-26 15:05] LABS: RBC MORPHOLOGY COMMENT SEE COMMENTS (NORM); WBC MORPHOLOGY COMMENT SEE COMMENTS (NORM)
--- NOTE | 2017-03-26 16:54 | PT.PROG ---
Progress Note Progress Note: S. Patient stated that he feels the pool helps him a lot. He reports he is able to move easier after being in the pool. O. Patient was wheeled to the therapy gym where he performed seated exercises in the form of; marches, long arc quads, sit to stands all x 10 bilaterally. Patient had unna boot applied to bilateral lower extremities. Patient was left in bed with call light. A. Patient tolerated exercises well, he continues to struggle with weakness and pain however is gaining mobility. Patient would continue to benefit from skilled therapy at this time. P. Continue POC.
--- NOTE | 2017-03-26 17:29 | PDOC(PROG) ---
Interval History: Patient has no complaints of chest pain, shortness breath, or nausea or vomiting. He states his leg pain is slightly better, he was able to do about 15 minutes more physical therapy, and states that the pool seems to be helping a lot. Patient thought he had infectious disease follow-up today but apparently the appointment was canceled. Objective : Data - Labs CBC and BMP: 03/26/17 14:20 03/25/17 05:33 Objective : Exam - General General Appearance: No Acute Distress, Cooperative Additional General Exam Details: Vital Signs (24 hrs) Temp Pulse Resp BP BP Pulse Ox 03/26/17 16:45 97.6 F 83 20 103/45 95 03/26/17 13:00 98.0 F 79 20 111/63 93 03/26/17 08:19 97.9 F 86 20 95/43 95 03/26/17 04:33 97 F 74 14 114/61 97 03/26/17 00:38 98.3 F 85 21 108/56 93 03/25/17 19:30 98.8 F 85 21 103/57 93 - Eye Eye Exam: No Scleral Icterus - ENT ENT Exam: Mucous Membranes Moist - Respiratory Respiratory Exam: Clear to Auscultation - Bilaterally, Breathing Non Labored - Cardiovascular Cardiovascular Exam: RRR, No Murmur, No Clicks, No Gallops, No Rubs, No JVD - GI/Abdominal GI/Abdominal Exam: Normal Bowel Sounds, Non Tender, Non Distended, Soft - Extremities Extremities Exam: No Clubbing Present, +3 Edema Additional Extremities Exam Details: Edema is unchanged. The right calf is tender but less so today. - Neurological Neurological Exam: Alert, Oriented x 3, No Facial Droop, Speech Intact / Clear Assessment and Plan - Patient Problems (1) Cellulitis Current Visit: Yes Status: Acute Code(s): L03.90 - Cellulitis, unspecified (2) Myositis Current Visit: Yes Status: Acute Code(s): M60.9 - Myositis, unspecified Qualifiers: Myositis type: unspecified type Myositis location: lower extremity Laterality: right Qualified Code(s): M60.861 - Other myositis, right lower leg (3) Right calf pain Current Visit: Yes Status: Acute Code(s): M79.661 - Pain in right lower leg (4) Lymphedema Current Visit: Yes Status: Acute Code(s): I89.0 - Lymphedema, not elsewhere classified (5) History of pulmonary embolism Current Visit: Yes Status: Acute Code(s): Z86.711 - Personal history of pulmonary embolism (6) Morbid obesity Current Visit: No Status: Chronic Onset Date: 03/10/11 Code(s): E66.01 - Morbid (severe) obesity due to excess calories (7) Depression, major, in remission Current Visit: No Status: Chronic Onset Date: 11/05/15 Code(s): F32.5 - Major depressive disorder, single episode, in full remission - Assessment / Plan Additional Assessment/Plan Details: I discussed with infectious disease today, given the length of his Ancef therapy , they would like to continue to do suppressive therapy and at least 2 more weeks of Keflex. 1000 mg twice a day. We will try to arrange infectious disease follow-up for the patient within the next 2 weeks. PT and OT/I'm got a swing bed evaluation and I spoke with one of our evaluators , and she stated go ahead and swing the patient on Wednesday. For his anemia, we administered then I'll fear. He may need another dose in about 2 weeks. I do not think he will orally absorbed very well. PICC line out at the end of the hospital stay -I will have that pulled tomorrow.. Eventually, we need to get the patient to a gastric bypass center. He is very amenable to at least having a consultation with the bariatric surgeon. Unna boots and compressive therapy for the chronic lymphedema.
[2017-03-26] MEDS: CEPHALEXIN 500 MG CAPSULE PO SCH (21:08)
[2017-03-27] MEDS: Apixaban 5 MG TABLET PO SCH ×2 (08:17→21:37)
[2017-03-27] MEDS: Multivitamin Tab 1 TAB PO SCH (08:17)
[2017-03-27] MEDS: VENLAFAXINE XR 75 MG CAP PO SCH (08:17)
[2017-03-27] MEDS: POTASSIUM CHLORIDE 20 MEQ TAB PO SCH (08:17)
[2017-03-27] MEDS: CEPHALEXIN 500 MG CAPSULE PO SCH ×2 (08:17→21:37)
--- NOTE | 2017-03-27 10:28 | PT.PROG ---
Progress Note Progress Note: S. Patient stated that he is not feeling up to much this morning, he reports he didn't sleep well last night. O. Patient ambulated 70 feet in the gregorio then performed seated exercises in the form of; long arc quads, marches and heel toe raises all x 10. Patient was left in bed with call light. A. Patient tolerated ambulation well, he reported feeling much better after getting out of bed. Patient would continue to benefit from skilled therapy at this time to increase mobility and endurance. P. Continue POC.
--- NOTE | 2017-03-27 12:41 | PDOC(PROG) ---
Date and Time of Service: 03/27/2017, 1240 Interval History: Patient reports he didn't sleep very well last night, no chest pain, no shortness of breath, right calf pain is improved from yesterday. Patient wonders if he overdid it a little bit in therapy, looking very forward to swing bed. Thus far no problems on Keflex. Objective : Data - Labs CBC and BMP: 03/26/17 14:20 03/25/17 05:33 Objective : Exam - General General Appearance: No Acute Distress, Cooperative Additional General Exam Details: Vital Signs (24 hrs) Temp Pulse Pulse Pulse Resp BP Pulse Ox 03/27/17 09:00 97.0 F 82 20 128/78 91 03/27/17 05:00 97.1 F 81 20 105/54 91 03/26/17 20:13 97.3 F 78 16 97/46 92 03/26/17 19:00 80 82 83 03/26/17 16:45 97.6 F 83 20 103/45 95 03/26/17 13:00 98.0 F 79 20 111/63 93 - Eye Eye Exam: No Scleral Icterus - ENT ENT Exam: Mucous Membranes Moist - Respiratory Respiratory Exam: Clear to Auscultation - Bilaterally, Breathing Non Labored - Cardiovascular Cardiovascular Exam: RRR, No Murmur, No Clicks, No Gallops, No Rubs, No JVD - GI/Abdominal GI/Abdominal Exam: Normal Bowel Sounds, Non Tender, Non Distended, Soft - Extremities Extremities Exam: No Clubbing Present, No Cyanosis Present, +3 Edema Additional Extremities Exam Details: Tolerating wraps well. Cellulitis looks significantly improved on the left lower extremity. Right calf tenderness is improved. - Neurological Neurological Exam: Alert, Oriented x 3, No Facial Droop, Speech Intact / Clear, Moves All Extremities Equally - Central Line Examination Central Line Type: PICC Line (Left-sided, no erythema and no exudate.) Central Line Site Observations: Asymptomatic, Intact, Patent Assessment and Plan - Patient Problems (1) Cellulitis Current Visit: Yes Status: Acute Code(s): L03.90 - Cellulitis, unspecified (2) Myositis Current Visit: Yes Status: Acute Code(s): M60.9 - Myositis, unspecified Qualifiers: Myositis type: unspecified type Myositis location: lower extremity Laterality: right Qualified Code(s): M60.861 - Other myositis, right lower leg (3) Right calf pain Current Visit: Yes Status: Acute Code(s): M79.661 - Pain in right lower leg (4) Lymphedema Current Visit: Yes Status: Acute Code(s): I89.0 - Lymphedema, not elsewhere classified (5) History of pulmonary embolism Current Visit: Yes Status: Acute Code(s): Z86.711 - Personal history of pulmonary embolism (6) Morbid obesity Current Visit: No Status: Chronic Onset Date: 03/10/11 Code(s): E66.01 - Morbid (severe) obesity due to excess calories (7) Depression, major, in remission Current Visit: No Status: Chronic Onset Date: 11/05/15 Code(s): F32.5 - Major depressive disorder, single episode, in full remission - Assessment / Plan Additional Assessment/Plan Details: Overall, cellulitis and myositis both are improving. The patient really has been weakened and deconditioned from all this and I think would benefit from swing bed therapy. We'll swing tomorrow. Discontinue PICC line tonight. Keflex 1000 mg twice a day for at least the next 2 weeks and reevaluate with infectious disease. Eventual referral for bariatric surgery.
[2017-03-28 07:35] VITALS: RESP 20
[2017-03-28] MEDS: VENLAFAXINE XR 75 MG CAP PO SCH (08:13)
[2017-03-28] MEDS: POTASSIUM CHLORIDE 20 MEQ TAB PO SCH (08:13)
[2017-03-28] MEDS: CEPHALEXIN 500 MG CAPSULE PO SCH (08:13)
[2017-03-28] MEDS: Apixaban 5 MG TABLET PO SCH (08:14)
[2017-03-28] MEDS: Multivitamin Tab 1 TAB PO SCH (08:14)
--- NOTE | 2017-03-28 11:04 | OT.PROG ---
Progress Note Progress Note: S: pt reports that his right leg hurts quite a bit. He was appreciative of his work out today. O: pt was seen in his room and transferred down to therapy by PT. He completed 6 min on arm bike to increase his activity tolerance. He completed LAQ, marching and minute drills while sitting in w/c. He then completed bicep curls 4 #, shoulder press 4# all 2x10. He transferred to mat table with CGA. He then completed UE boxing activity to increase his overall activity tolerance. He completed about 6 diff combinations with 30 sec - 1 min a piece. He did take a water break between combinations. Pt then transferred approx 15 ft with walker before sitting in w/c and being transferred back up to his room. He was left upright in his chair per nursing request. A: pt may continue to benefit from therapy to improve his overall activity tolerance. He must improve on distance he ambulates as well. He will continue to benefit from pool therapy. monitor his R foot pain. P: continue per POC.
[2017-03-28 12:55] VITALS: BP 127/66; TEMP 97.6; O2SAT 95
--- NOTE | 2017-03-28 13:39 | DCSUMMARY ---
Hospitalization Summary Admit Date: 03/24/2017 Discharge Date: 03/28/17 Primary Diagnosis:: myositis, cellulitis, generalized weakness Hospital Course: This is a very pleasant 56-year-old male that has morbid obesity who re- presented to the hospital with right calf pain. He was admitted with what ended up being a right calf myositis, probably related to trauma via his history. His cellulitis is significantly improved, and with physical therapy and occupational therapy, muscle relaxants, and pain medications for pain control, the patient's myositis has improved symptomatically as well. We had him evaluated for swing bed as he has been quite weak and deconditioned and he was accepted and we'll transfer to the swing bed today. In terms of his cellulitis, he finished IV antibiotics and his PICC line was pulled. He'll do Keflex 1000 mg twice a day for the next 2 weeks and then possibly continue with suppressive therapy as per infectious disease. We will try to arrange an infectious disease follow-up on an outpatient basis. His myositis improved in terms of his pain level, but he continues to have right calf pain and tenderness, and I suspect this will take a couple of weeks to improve. An MRI scan was done and it revealed no evidence of abscess. Other medical problems remain stable through the hospital stay. We spoke candidly about potential gastric bypass, the patient is thinking that he may proceed in that fashion. I do want to mention that the patient does have iron deficiency anemia. He had a recent negative colonoscopy. I think this is iron deficiency anemia in the setting of infection. Then a fear was given once and we will repeat a dose. If this persists, he may need further gastrointestinal workup and/or bone marrow workup. Today, no complaints of chest pain, shortness breath, nausea or vomiting. Assessment and Plan: 1. As per discharge assessments noted 2. Disposition: Patient is discharged to swing bed status 3. Condition on discharge, stable and improved. 4. Diet: regular diet 5. Activities: We will have the patient continue PT and OT 6. Follow-Up: 1. Hospital service will continue to follow patient on the swing bed status 2. 7. Medications at the Time of Discharge: Active Medications Generic Name Dose Route Start Last Admin Trade Name Freq PRN Reason Stop Dose Admin Acetaminophen 650 mg 03/24/17 16:43 Tylenol PO Q6H PRN Pain or Fever Apixaban 5 mg 03/24/17 21:00 03/28/17 08:14 Eliquis PO 5 mg BID DORIE Administration Calcium Carbonate 1 - 2 tab 03/24/17 16:43 Tums PO Q6H PRN Heartburn Cephalexin 1,000 mg 03/26/17 21:00 03/28/17 08:13 Keflex PO 04/09/17 23:55 1,000 mg BID DORIE Administration Docusate Sodium 100 mg 03/24/17 16:43 03/28/17 08:22 Colace PO 100 mg BID PRN Administration Constipation Heparin Sodium (Porcine) 500 unit 03/25/17 05:35 03/25/17 11:00 Heparin Lock Inj (For Central Line) IVP 500 unit DAILY PRN Administration Flush Lidocaine HCl 0.5 ml 03/24/17 16:43 Lidocaine Buffered Inj SUBD ONCE PRN IV Starts Methocarbamol 500 mg 03/24/17 22:33 03/25/17 18:22 Robaxin PO 500 mg TID PRN Administration muscle spasm Multivitamins Therapeutic 1 tab 03/25/17 09:00 03/28/17 08:14 Thera Tab PO 1 tab DAILY DORIE Administration Ondansetron HCl 4 mg 03/24/17 16:43 Zofran Inj IVP Q4H PRN NAUSEA / VOMITING Potassium Chloride 20 meq 03/25/17 09:00 03/28/17 08:13 Klor-Con PO 20 meq DAILY DORIE Administration Sodium Chloride 5 - 20 ml 03/24/17 16:43 03/26/17 13:57 Saline Flush IVP 10 ml BID PRN Administration Flush Tramadol HCl 50 mg 03/24/17 22:33 03/25/17 18:22 Ultram PO 50 mg Q6H PRN Administration Pain Venlafaxine HCl 150 mg 03/25/17 09:00 03/28/17 08:13 Effexor Xr PO 150 mg DAILY DORIE Administration 8. Time, care, counseling and coordination of care for this discharge is less than 30 minutes. Exam - Vitals Vital Signs: Vital Signs Temperature 97.6 F Temperature Source Temporal Artery Scan Pulse Rate [Pulse Oximeter] 85 Pulse Rate [Dorsalis Pedis] 80 Pulse Rate [Pulse Oximeter 82 Bilateral Radial] Pulse Rate 78 Respiratory Rate 20 Blood Pressure [Right Arm] 127/66 Blood Pressure [Left Arm] 108/56 Blood Pressure 126/70 Pulse Ox 95 Oxygen Delivery Method Room Air Height 6 ft 1 in Weight 440 lb 12.8 oz - General General Appearance: No Acute Distress, Cooperative - Eye Eye Exam: POSITIVE: No Scleral Icterus - ENT ENT Exam: POSITIVE: Mucous Membranes Moist - Respiratory Respiratory Exam: POSITIVE: Clear to Auscultation - Bilaterally, Breathing Non Labored - Cardiovascular Cardiovascular Exam: POSITIVE: RRR, No Murmur, No Clicks, No Gallops, No Rubs, No JVD - GI/Abdominal GI/Abdominal Exam: POSITIVE: Normal Bowel Sounds, Non Tender, Non Distended, Soft - Extremities Extremities Exam: POSITIVE: No Clubbing Present, No Cyanosis Present, +3 Edema Additional Extremities Exam Details: Wraps in place. Cellulitis proximally is significantly improved on left side. Right Still has tenderness although less than on admission. - Neurological Neurological Exam: POSITIVE: Alert, Oriented x 3, No Facial Droop, Speech Intact / Clear, Moves All Extremities Equally - Psychiatric Psychiatric Exam: POSITIVE: Normal Affect, Normal Mood Data Peritnent Studies: 03/24/17 03/24/17 03/24/17 14:00 14:00 16:00 WBC Hgb Hct Plt Count PT 13.5 H INR 1.27 Sodium Potassium Chloride Carbon Dioxide Anion Gap BUN Creatinine Glucose Calcium Magnesium 1.7 Total Bilirubin 0.7 AST 29 ALT 9 L Alkaline Phosphatase 144 H Total Creatine Kinase 144 NT-Pro-B Natriuret Pep 354 H Total Protein 7.6 Albumin 3.2 L Globulin 4.4 H 03/25/17 03/26/17 05:33 14:20 WBC 3.71 L Hgb 9.1 L Hct 29.8 L Plt Count 209 PT INR Sodium 137 Potassium 4.2 Chloride 98 Carbon Dioxide 32 Anion Gap 7 BUN 12 Creatinine 0.7 Glucose 90 Calcium 8.0 L Magnesium Total Bilirubin AST ALT Alkaline Phosphatase Total Creatine Kinase NT-Pro-B Natriuret Pep Total Protein Albumin Globulin Patient Problems - Patient Problem List (1) Cellulitis Current Visit: Yes Status: Acute Code(s): L03.90 - Cellulitis, unspecified Category: Medical (2) Myositis Current Visit: Yes Status: Acute Code(s): M60.9 - Myositis, unspecified Qualifiers: Myositis type: unspecified type Myositis location: lower extremity Laterality: right Qualified Code(s): M60.861 - Other myositis, right lower leg Category: Medical (3) Right calf pain Current Visit: Yes Status: Acute Code(s): M79.661 - Pain in right lower leg Category: Medical (4) Lymphedema Current Visit: Yes Status: Acute Code(s): I89.0 - Lymphedema, not elsewhere classified Category: Medical (5) History of pulmonary embolism Current Visit: Yes Status: Acute Code(s): Z86.711 - Personal history of pulmonary embolism Category: Medical (6) Morbid obesity Current Visit: No Status: Chronic Onset Date: 03/10/11 Code(s): E66.01 - Morbid (severe) obesity due to excess calories Category: Medical (7) Depression, major, in remission Current Visit: No Status: Chronic Onset Date: 11/05/15 Code(s): F32.5 - Major depressive disorder, single episode, in full remission Category: Medical (8) Anemia, iron deficiency Current Visit: Yes Status: Acute Code(s): D50.9 - Iron deficiency anemia, unspecified Qualifiers: Iron deficiency anemia type: unspecified iron deficiency Qualified Code(s) : D50.9 - Iron deficiency anemia, unspecified Category: Medical
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
--- NOTE | 2017-03-29 09:56 | OT AM DAY ---
Diagnosis : Weakness AM - Occupational Therapy S: The patient reports he is feeling better today. He states he still has some right lower extremity soreness. O: After pool therapy the patient was able to transfer into the shower chair with contact guard assist. The patient participated in all showering activities with some verbal cueing and assistance for his back. The patient was able to dress self while sitting on shower chair and then transferred into the wheelchair with stand by assistance. A: The patient did well with ADLs and functional abilities; he just needed stand by to contact guard assist. He did require min assist for washing his back during showering. P: Continue seeing patient BID during the week and one time per day over the weekend for upper extremity strengthening, ADLs, and overall functional mobility. FLORENCIO
--- NOTE | 2017-03-29 12:01 | OT PM DAY ---
Diagnosis : Weakness PM - Occupational Therapy S: The patient states he would really like the Unna-boot as last time he was in the hospital that really helped his legs feel better. He says he can transfer a little bit and he requested to use the restroom first. O: The patient was seen in his room. He completed bed mobility with modified independence as it took him longer to complete. He completed functional transfer from his bed to the bathroom and completed toileting independently. He then transferred another 10 feet to wheelchair and was transferred downstairs via wheelchair. Once in the therapy gym the patient transferred from wheelchair to edge of mat table, approximately 10 feet. He completed upper extremity dynamic reaching activity with boxing gloves; he completed mini combinations for approximately 8-10 minutes with breaks in between to improve his overall motion and keep his upper extremities moving. The patient also completed therapeutic exercise with green theraband in rows, biceps flexion, shoulder extension, and horizontal abduction. The patient was then assisted back to his room by PT. A: The patient will continue to benefit from therapy to maintain his movement. We will continue to improve his overall activity tolerance with transfers. P: Continue seeing patient BID during the week and one time per day over the weekend for upper extremity strengthening, ADLs, and overall functional mobility. MTDD
== END 2017-03-28 14:00 | DRG 556 ==
LOC: ER 12:20 → MED/SURG 16:02
PROVIDERS: ADMIT Family Medicine; ATTEND Family Medicine

== ENCOUNTER 2018-01-14 13:22 | Inpatient (IN) ==
[2018-01-14] MEDS ORDERED: Sodium Chloride 0.9% 1,000 ML PRIMARY IV ONE ×5 (13:43→17:51)
--- NOTE | 2018-01-14 13:52 | EKG ---
[address] [place] [id number] Measurements Intervals [place] Rate: 79 P: 62 FL: 184 QRS: -31 QRSD: 74 T: 91 QT: 354 QTc: 388 Interpretive Statements SINUS RHYTHM LOW QRS VOLTAGE ANTEROSEPTAL MYOCARDIAL INFARCTION OF INDETERMINATE AGE Compared to ECG 03/05/2017 08:55:57 Inferior infarction criteria no longer present Electronically Signed On 01-14-18 17:23:17 MST by Zeferino Garcia [email or web address]
[2018-01-14 14:26] LABS: BASOPHILS # (AUTO) 0.01 10*3/UL; BASOPHILS % (AUTO) 0.2 % (0-1); EOSINOPHILS # (AUTO) 0.02 10*3/UL; EOSINOPHILS % (AUTO) 0.4 % (0-8); Hematocrit [HCT] 39.7 % (42.0-52.0); Hemoglobin [HGB] 12.7 g/dL (14.0-18.0); LYMPHOCYTES # (AUTO) 0.39 10*3/uL; MEAN CORPUSCULAR HEMOGLOBIN 29.5 PG (27-31); MEAN CORPUSCULAR VOLUME 92.1 FL (80-90); MEAN PLATELET VOLUME 10.3 FL (7.4-12.2); MONOCYTES # (AUTO) 0.24 10*3/UL (0.3-0.8); MONOCYTES % (AUTO) 4.5 % (5-15); NEUTROPHILS # (AUTO) 4.68 10*3/UL; NEUTROPHILS % (AUTO) 87.4 % (50-80); RED BLOOD COUNT 4.31 10^6/uL (4.70-6.10)
--- NOTE | 2018-01-14 14:31 | PDOC ---
General Adult HPI - General Chief Complaint: Lower Extremity Problem/Injury Stated Complaint: leg sores, flu symptoms Date Seen by Provider: 01/14/18 Time Seen by Provider: 13:25 Source: POSITIVE: Patient, Spouse Exam Limitations: POSITIVE: No limitations Nurse's Notes Reviewed & Considered: Yes - History of Present Illness Initial Comment: The patient is a 57-year-old male who presents to the emergency department with complaints of fever, body aches and general malaise. He has a history of lymphedema in his legs and was hospitalized in March of this year with significant cellulitis and DVT in the left leg. He is still taking Eliquis. After a trip several months ago he had developed some increased swelling in his left leg and developed an open lesion to the lower leg. He has been going to physical therapy for wound care and they have been providing wraps. He has also been taking doxycycline for possible wound infection for the past couple of weeks. The wound has been losing significant amounts of fluid even sometimes causing his shoe to be wet. He had his leg wrapped yesterday and since then the bruising seems to have improved significantly. The patient however states that starting yesterday he had fairly sudden onset of chills and general malaise. This was associated with generalized body aches. He was running a low-grade fever with a temperature of 100 at home last night. The symptoms continued today although are slightly better. He states that he seems to have some increased swelling in the left leg and some new areas of redness to the medial aspect of the left thigh and around the left knee. He denies any current chest pain or shortness of breath. He has not had any associated sore throat, cough, congestion, abdominal pain, nausea or vomiting, urinary symptoms or any other associated complaints. Have you received a tetanus shot in the past 10 years?: Yes - Patient Home Medications Home Medications: Home Medications Apixaban [Eliquis] 5 mg PO BID 03/24/17 multivitamin tablet 1 tab PO QDAY ea 04/07/17 vitamin D3 500 unit-vit K 500 mcg-berberine 90 mg-hops 370 mg tablet 1 tab PO QDAY ea 04/07/17 venlafaxine ER 150 mg capsule,extended release 24 hr 150 mg PO QDAY #90 cap 09/13/17 doxycycline hyclate 100 mg tablet 100 mg PO BID #20 tab 12/31/17 furosemide 40 mg tablet 40 mg PO QDAY #90 tab 12/31/17 potassium chloride ER 20 mEq tablet,extended release(part/cryst) 20 meq PO QDAY #90 tab 12/31/17 Niacin 500 mg PO DAILY 01/14/18 - Patient Allergies Allergies/Adverse Reactions: Allergies Allergy/AdvReac Type Severity Reaction Status Date / Time No Known Drug Allergies Allergy NOT Verified 01/14/18 17:43 APPLICABLE Past Medical History - heen HEENT History: Denies History Cardiovascular History: DVTs Additional Cardiovasular History: In left groin due to injury, PERICARDITIS Respiratory History: Pneumonia, Pulmonary Embolism, Snoring Additional Respiratory History: RECURRENT MAXILLARY SINUSITIS,BRONCHITIS Gastrointestinal History: Diverticulitis Genitourinary History: Kidney Stones Additional Genitourinary History: 2001 Endocrine History: Denies History Musculoskeletal History: Arthritis, Other (please comment) Prosthesis or Implant: No Additional Musculoskeletal History: 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 SIG LE ,VENOUS INCOMPETENCE,MORBID OBESITY Neurological History: Denies History Blood Disorders: Anemia Additional Blood Disorders History: Was told that by [facility] Psychiatric History: Depression, PTSD History of Sexually Transmitted Diseases: No Male Reproductive History: Denies History Cancer History: Denies History In Past Year Been Physically Harmed or Verbally Threatened: No History of MDRO: No History of Other Communicable Diseases: No Tobacco Use: Former Smoker Alcohol Use: Occasionally In the Past 12 Months, Have Used or Abuse Any Substance: None Previous Surgical History: Yes Type / Date of Surgery: R elbow cyst 1983/[place] teeth/Removal of impacted tooth in 1973 Anesthesia Reactions: No Malignant Hyperthermia: No Significant Family History: Other (please comment) Additional Family History: POLIO,IBS,RHEUMATIC FEVER Past Medical History Reviewed: Reviewed - No Changes ROS - Limitations ROS Limitations: No Limitations Constitution: REPORTS: Chills, Fever, Weakness (Generalized) Cardiovascular: REPORTS: Edema (Chronic, left leg more swollen recently). DENIES: Chest Pain Respiratory: DENIES: Cough Non Productive, Cough Productive, Shortness Of Breath Neurological: REPORTS: Headache. DENIES: Numbness, Weakness Gastrointestinal: DENIES: Abdominal Pain, Nausea, Vomitting, Diarrhea Musculoskeletal: REPORTS: Back Pain, Muscle Aches Genitourinary: DENIES: Dysuria, Hematuria, Difficulty Urinating Eyes: REPORTS: Denies Symptoms ENT: DENIES: Congestion, Sore Throat Skin: DENIES: Rash General Adult Exam - General Appearance General Appearance: POSITIVE: Alert, Cooperative, No Acute Distress - HEENT HEENT: POSITIVE: Head Inspection Nml, Eyes Inspection Nml, Ears Inspection Nml, Nose Inspection Nml, Pharynx Inspect. Nml - Neck Neck: POSITIVE: Normal Inspection. NEGATIVE: Lymphadenopathy - Respiratory Respiratory: POSITIVE: No Respiratory Distress, Breath Sounds Normal - Cardiovascular Cardiovascular: POSITIVE: Regular Rate & Rhythm, No Murmur Peripheral Pulses: Dorsalis-pedis (R): 2+, Dorsalis-pedis (L): 2+ - Abdomen Abdomen: Soft: (All Quadrants), Denies Tenderness: (All Quadrants) - Back Back: POSITIVE: Normal Inspection - Skin Skin: POSITIVE: Normal Color, Other (Venous stasis changes in the lower extremities bilaterally) - Extremities Additional Extremities Details: Examination of the left lower extremity does reveal a dressing/wrap to the lower leg. This was removed with the exception of the medicated patches right over the open areas. The left leg does have considerable swelling, there is venous stasis changes in lower leg, there is an area of erythema that extends up just past his knee anteriorly as well as to the medial aspect of the left thigh, there is no active drainage from the open wounds currently, good results pedis pulse in the left foot - Neurological / Psychological Neurological: POSITIVE: Oriented X3, Motor Normal, Sensation Normal General Adult Progress - Results Reviewed by me Xrays/CTs/US Reviewed by me: Yes Discussed with Radiologist: Yes Radiology Findings: Ultrasound of the left leg shows clot in the saphenous vein with no evidence of DVT per radiologist. Lab Results Reviewed by Me: Yes Lab Results:: Laboratory Results 01/14/18 01/14/18 01/14/18 13:40 13:40 13:40 WBC 5.35 RBC 4.31 L Hgb 12.7 L Hct 39.7 L MCV 92.1 H MCH 29.5 MCHC 32.0 L RDW Std Deviation 50.3 H RDW Coeff of Roxanne 15.5 H Plt Count 116 L MPV 10.3 Immature Gran % (Auto) 0.2 Neut % (Auto) 87.4 H Lymph % (Auto) 7.3 L [place] % (Auto) 4.5 L Eos % (Auto) 0.4 Baso % (Auto) 0.2 Immature Gran # (Auto) 0.01 Neut # (Auto) 4.68 Lymph # (Auto) 0.39 [place] # (Auto) 0.24 L Eos # (Auto) 0.02 Baso # (Auto) 0.01 WBC Morphology Comment Normal morphology Plt Morphology Comment Normal morphology RBC Morph Comment Normal morphology D-Dimer Sodium Potassium Chloride Carbon Dioxide Anion Gap BUN Creatinine Estimated GFR BUN/Creatinine Ratio Glucose Calculated Osmolality Lactic Acid Calcium Magnesium Total Bilirubin AST ALT Alkaline Phosphatase Troponin I < 0.012 C-Reactive Protein NT-Pro-B Natriuret Pep Total Protein Albumin Globulin Albumin/Globulin Ratio TSH 3.24 01/14/18 01/14/18 01/14/18 13:40 14:30 14:30 WBC RBC Hgb Hct MCV MCH MCHC RDW Std Deviation RDW Coeff of Roxanne Plt Count MPV Immature Gran % (Auto) Neut % (Auto) Lymph % (Auto) [place] % (Auto) Eos % (Auto) Baso % (Auto) Immature Gran # (Auto) Neut # (Auto) Lymph # (Auto) [place] # (Auto) Eos # (Auto) Baso # (Auto) WBC Morphology Comment Plt Morphology Comment RBC Morph Comment D-Dimer 0.99 H Sodium 138 Potassium 4.0 Chloride 103 Carbon Dioxide 26 Anion Gap 9 BUN 19 Creatinine 0.9 Estimated GFR > 60 BUN/Creatinine Ratio 21.11 H Glucose 90 Calculated Osmolality 287.0 Lactic Acid 1.7 Calcium 8.4 L Magnesium Total Bilirubin 1.5 H AST 30 ALT 22 Alkaline Phosphatase 95 Troponin I C-Reactive Protein NT-Pro-B Natriuret Pep Total Protein 8.1 H Albumin 4.0 Globulin 4.1 Albumin/Globulin Ratio 0.90 L TSH 01/14/18 14:30 WBC RBC Hgb Hct MCV MCH MCHC RDW Std Deviation RDW Coeff of Roxanne Plt Count MPV Immature Gran % (Auto) Neut % (Auto) Lymph % (Auto) [place] % (Auto) Eos % (Auto) Baso % (Auto) Immature Gran # (Auto) Neut # (Auto) Lymph # (Auto) [place] # (Auto) Eos # (Auto) Baso # (Auto) WBC Morphology Comment Plt Morphology Comment RBC Morph Comment D-Dimer Sodium Potassium Chloride Carbon Dioxide Anion Gap BUN Creatinine Estimated GFR BUN/Creatinine Ratio Glucose Calculated Osmolality Lactic Acid Calcium Magnesium 1.7 Total Bilirubin AST ALT Alkaline Phosphatase Troponin I C-Reactive Protein 6.7 H NT-Pro-B Natriuret Pep 950 H Total Protein Albumin Globulin Albumin/Globulin Ratio TSH CBC and BMP: 01/14/18 13:40 01/14/18 13:40 EKG Interpretation:: POSITIVE: Normal Sinus Rhythm, Normal Rate, Normal QRS, Normal ST/T, Other (Low-voltage) - Patient's Progress MDM / ED Course: The patient was afebrile on arrival here however his initial blood pressure was in the 80s systolic, 75 on recheck. Blood cultures and lactate were drawn with initial IV started he received a fluid bolus of 1 L of normal saline. His blood pressure even before the fluid bolus had come up into the 1 teens systolic. He remained normotensive for the remainder of his emergency room course. His blood work reveals a normal white blood cell count and elevated CRP at 6.7. His d-dimer was mildly elevated at 0.9. His troponin is normal and his BNP is elevated at 950. His lactate was normal at 1.7. Venous Doppler of the left lower extremity shows no evidence of DVT with some superficial clot noted in the greater saphenous vein. While here in the emergency department he stated that he was starting to have increased chills and his temperature had gone up to 100.3. He did receive Tylenol thousand milligrams by mouth. The patient does have significant venous stasis ulcer with associated cellulitis of the left leg with worsening despite being on oral antibiotics. I did discuss the patient with Dr. Ramirez and he is agreed to admit the patient for further treatment. The patient is in agreement with this plan. The patient did receive Ancef 2 g IV. - Consult Counseled: POSITIVE: Patient, Family, RE: Lab Results, RE: Radiology Results, RE: DX Patient Care Time - Estimated PCT Patient Care Time (In Minutes): 35 Vital Signs - Recent Vital Signs Vital Signs: Vital Signs (Last 8 hours) Temp Pulse Pulse Resp BP BP Pulse Ox 01/14/18 18:03 81 18 133/66 98 01/14/18 17:52 99.3 F 89 20 113/88 93 01/14/18 15:43 100.2 F H 01/14/18 13:22 97.6 F 85 20 75/40 95 - VS Reviewed Vital Signs Reviewed: Yes Discharge Clinical Impression: Cellulitis of left leg, Venous stasis ulcer Discharge Disposition: Admit to Inpatient Condition: Fair Date Decision to Admit to Inpatient: 01/14/18 Time Decision to Admit to Inpatient: 15:30
[2018-01-14 14:41] LABS: BLOOD UREA NITROGEN 19 mg/dL (7-22); BUN/CREATININE RATIO 21.11 (6-20)
[2018-01-14 14:42] LABS: PLATELET MORPHOLOGY COMMENT NORMAL MORPHOLOGY (NORM); RBC MORPHOLOGY COMMENT NORMAL MORPHOLOGY (NORM); WBC MORPHOLOGY COMMENT NORMAL MORPHOLOGY (NORM)
[2018-01-14] MEDS ORDERED: ONDANSETRON 4 MG/2 ML VIAL IVP ONE (14:56)
[2018-01-14] MEDS ORDERED: MORPHINE SULFATE 2 MG/1 ML IVP ONE (14:56)
--- NOTE | 2018-01-14 15:09 | DI ---
US Up/Low Ext Veins U/L or Ltd 01/14/2018 2:01 PM History: [facility] ^increased left leg swelling Comparison: 09/06/2017. Procedure: Left lower extremity Doppler ultrasound. Findings: There is normal flow, compressibility, and respiratory variation from the level of the comm on femoral vein to the popliteal vein on the left. There is incompressible thrombus in the greater sa phenous vein proximally and at the level of the knee, consistent with superficial thrombophlebitis. Impression: 1. No evidence of deep vein thrombosis above the knee. 2. Superficial thrombophlebitis of the greater saphenous vein.
[2018-01-14] MEDS ORDERED: ACETAMINOPHEN 500 MG TABLET PO ONE (15:30)
[2018-01-14] MEDS ORDERED: ceFAZolin Inj 2gm (Premix) 2 GM/50 ML BAG IV ONE (15:33)
[2018-01-14] MEDS ORDERED: ceFAZolin Inj 2 GM in Sodium Chloride 0.9% 100 ML IV SCH (15:45)
--- NOTE | 2018-01-14 17:26 | PDOC ---
HPI - History of Present Illness Date of Service: 01/14/18 Time of Service: 17:20 Chief Complaint: Left leg pain History of Present Illness: This very pleasant 57-year-old male known to the hospital service with prior history of left lower extremity cellulitis, morbid obesity although he's now had a 60 pound weight loss (was 440 pounds at his max weight in March 2017), lymphedema, well-controlled depression, and history of venous stasis ulcers who presents tonight with the complaint of left lower extremity pain. The history is obtained from the patient and his . Approximate 6 weeks ago, he developed a quarter sized left lateral venous stasis ulcer. They treated it locally, and he said some wound care therapy as well. About 2 weeks ago, it was thought that he might have underlying infection and used by some doxycycline by his primary physician. He has been fitted for some special devices called a Carley device which apparently helps with lymphedema patients. He is still waiting on a device to help with that. However over the last 2 days, he started having some chills and has had some low-grade fevers. Had some redness extend up into the medial thigh. I discussed with infectious disease in [place], and they felt like this was actually lymphangitic spread and consistent with probably a Streptococcus and they felt that her antibiotic choice of Ancef would be reasonable. There were no other systemic symptoms such as nausea, vomiting, or other issues. His systolic blood pressure when I saw him was 155 and it did go down to 113 while I examine the patient. There is a recorded blood pressure of 75 in the chart on the systolic side, but I don't know if that is accurate. The patient is been getting collagen treatments and Unna boot wraps with physical therapy the last 2 days. There was no faina pus draining but he's had yellow-colored weepage from the ulcer. Overall, the patient and his state that the ulcer is been slow to heal, but they've continued wound care therapy and that is been stepped up over the last 2 days as mentioned. Past Medical History Medical History: Depression, morbid obesity, chronic venous insufficiency, history of pulmonary emboli, provoked, superficial DVT left side that went to the junction of the common femoral vein (the greater saphenous vein on the left lower extremity still has clots) probably chronic in nature. Obstructive sleep apnea. Surgical History: 1. Prior extremity surgery. Pertinent Family History: Significant for obesity. He's also learned that one of his brothers has had several bouts of soft tissue skin infections. Past Social History: Does not currently smoke or drink. . No children. Tobacco Use: Former Smoker In the Past 12 Months, Have Used or Abuse Any of the Following Substance: None Alcohol Use: None Medication / Allergies Home Medications: Home Medications Medication Instructions Recorded Confirmed Type Apixaban [Eliquis] 5 mg PO BID 03/24/17 01/14/18 History multivitamin tablet 1 tab PO QDAY ea 04/07/17 01/14/18 History vitamin D3 500 unit-vit K 500 1 tab PO QDAY ea 04/07/17 01/14/18 History mcg-berberine 90 mg-hops 370 mg tablet venlafaxine ER 150 mg 150 mg PO QDAY #90 cap 09/13/17 01/14/18 Rx capsule,extended release 24 hr doxycycline hyclate 100 mg tablet 100 mg PO BID #20 tab 12/31/17 01/14/18 Rx furosemide 40 mg tablet 40 mg PO QDAY #90 tab 12/31/17 01/14/18 Rx potassium chloride ER 20 mEq 20 meq PO QDAY #90 tab 12/31/17 01/14/18 Rx tablet,extended release(part/cryst) Niacin 500 mg PO DAILY 01/14/18 01/14/18 History Allergies/Adverse Reactions: Allergies Allergy/AdvReac Type Severity Reaction Status Date / Time No Known Drug Allergies Allergy NOT Verified 01/14/18 17:43 APPLICABLE Review of Systems - Review of Systems All Systems: Reviewed & No Additional Complaints Except as Stated (I did a 12 point review systems and it was negative other than that discussed in the history of present illness and that noted below.) - Constitutional Constitutional: REPORTS: Weight Loss (Patient has lost 60 pounds and I was able to document that from 440 pounds at his maximum in March 2017 to 380 pounds today.), Fever / Chills - Integumentary Integumentary: REPORTS: Rash (Medial aspect of the left lower extremity), Other (Chronic venous stasis ulcers left heel and ankle region) - Respiratory Respiratory: REPORTS: Negative System Review - Cardiovascular Cardiovascular: REPORTS: Negative System Review - Gastrointestinal Gastrointestinal / Abdominal: REPORTS: Diarrhea (Today had an episode of diarrhea that he attributes to not eating. He states when he hasn't eaten very much that that often happens) - Neurological Neurologic: REPORTS: Negative System Review Exam - Vitals Vital Signs: Vital Signs Vital Signs - Last Taken Temperature 100.2 F H 01/14/18 15:43 Pulse Rate 85 01/14/18 13:22 Respiratory Rate 20 01/14/18 13:22 Blood Pressure 75/40 01/14/18 13:22 Pulse Ox 95 01/14/18 13:22 Height 6 ft 1 in Weight 380 lb Not sure if the blood pressure at 75/40 is accurate. When I examine the patient on his blood pressure cuff readings, systolic pressure ranged from 155-113 - General General Appearance: No Acute Distress, Cooperative, Morbidly Obese Additional General Exam Details: Appears ill but not toxic currently - Head Head Exam: Normal Inspection, Normocephalic, Atraumatic - Eye Eye Exam: POSITIVE: No Scleral Icterus - ENT ENT Exam: POSITIVE: Mucous Membranes Moist - Neck Neck Exam: Normal Inspection, No Tenderness, No Lymphadenopathy, No Thyromegaly, JVP is not Raised - Respiratory Respiratory Exam: POSITIVE: Clear to Auscultation - Bilaterally, Breathing Non Labored, Normal to Percussion and Palpation - Cardiovascular Cardiovascular Exam: POSITIVE: RRR, No Murmur, No Clicks, No Gallops, No Rubs, No JVD - GI/Abdominal GI/Abdominal Exam: POSITIVE: Normal Bowel Sounds, Non Tender, Non Distended, Soft - Rectal Rectal Exam: POSITIVE: Deferred - External Exam: POSITIVE: Deferred Exam: POSITIVE: Deferred - Extremities Extremities Exam: POSITIVE: No Clubbing Present, No Cyanosis Present, +2 Edema - Back Back Exam: POSITIVE: No CVA Tenderness - Neurological Neurological Exam: POSITIVE: Alert, Oriented x 3, No Facial Droop, Speech Intact / Clear, Moves All Extremities Equally - Psychiatric Psychiatric Exam: POSITIVE: Normal Affect, Normal Mood - Integumentary Additional Integumentary Exam Details: Has lymphangitic redness and tenderness on the medial aspect of his left thigh. There is venous stasis ulcer about 5 cm in length by 3 cm across the superior to the left lateral malleolus with indistinct edges. - Central Line Examination Central Line Present on Admission: No Results - Labs CBC and BMP: 01/14/18 13:40 01/14/18 13:40 Additional Lab Results: Laboratory Results 01/14/18 01/14/18 01/14/18 13:40 13:40 13:40 WBC 5.35 RBC 4.31 L Hgb 12.7 L Hct 39.7 L MCV 92.1 H MCH 29.5 MCHC 32.0 L RDW Std Deviation 50.3 H RDW Coeff of Roxanne 15.5 H Plt Count 116 L MPV 10.3 Immature Gran % (Auto) 0.2 Neut % (Auto) 87.4 H Lymph % (Auto) 7.3 L Hidalgo % (Auto) 4.5 L Eos % (Auto) 0.4 Baso % (Auto) 0.2 Immature Gran # (Auto) 0.01 Neut # (Auto) 4.68 Lymph # (Auto) 0.39 Hidalgo # (Auto) 0.24 L Eos # (Auto) 0.02 Baso # (Auto) 0.01 WBC Morphology Comment Normal morphology Plt Morphology Comment Normal morphology RBC Morph Comment Normal morphology D-Dimer Sodium Potassium Chloride Carbon Dioxide Anion Gap BUN Creatinine Estimated GFR BUN/Creatinine Ratio Glucose Calculated Osmolality Lactic Acid Calcium Magnesium Total Bilirubin AST ALT Alkaline Phosphatase Troponin I < 0.012 C-Reactive Protein NT-Pro-B Natriuret Pep Total Protein Albumin Globulin Albumin/Globulin Ratio TSH 3.24 01/14/18 01/14/18 01/14/18 13:40 14:30 14:30 WBC RBC Hgb Hct MCV MCH MCHC RDW Std Deviation RDW Coeff of Roxanne Plt Count MPV Immature Gran % (Auto) Neut % (Auto) Lymph % (Auto) Hidalgo % (Auto) Eos % (Auto) Baso % (Auto) Immature Gran # (Auto) Neut # (Auto) Lymph # (Auto) Hidalgo # (Auto) Eos # (Auto) Baso # (Auto) WBC Morphology Comment Plt Morphology Comment RBC Morph Comment D-Dimer 0.99 H Sodium 138 Potassium 4.0 Chloride 103 Carbon Dioxide 26 Anion Gap 9 BUN 19 Creatinine 0.9 Estimated GFR > 60 BUN/Creatinine Ratio 21.11 H Glucose 90 Calculated Osmolality 287.0 Lactic Acid 1.7 Calcium 8.4 L Magnesium Total Bilirubin 1.5 H AST 30 ALT 22 Alkaline Phosphatase 95 Troponin I C-Reactive Protein NT-Pro-B Natriuret Pep Total Protein 8.1 H Albumin 4.0 Globulin 4.1 Albumin/Globulin Ratio 0.90 L TSH 01/14/18 14:30 WBC RBC Hgb Hct MCV MCH MCHC RDW Std Deviation RDW Coeff of Roxanne Plt Count MPV Immature Gran % (Auto) Neut % (Auto) Lymph % (Auto) H[place]go % (Auto) Eos % (Auto) Baso % (Auto) Immature Gran # (Auto) Neut # (Auto) Lymph # (Auto) Hidalgo # (Auto) Eos # (Auto) Baso # (Auto) WBC Morphology Comment Plt Morphology Comment RBC Morph Comment D-Dimer Sodium Potassium Chloride Carbon Dioxide Anion Gap BUN Creatinine Estimated GFR BUN/Creatinine Ratio Glucose Calculated Osmolality Lactic Acid Calcium Magnesium 1.7 Total Bilirubin AST ALT Alkaline Phosphatase Troponin I C-Reactive Protein 6.7 H NT-Pro-B Natriuret Pep 950 H Total Protein Albumin Globulin Albumin/Globulin Ratio TSH - Imaging Status: Report Reviewed by Me (ultrasound shows chronic venous stasis ulcer.) Assessment and Plan - Patient Problems (1) Cellulitis Current Visit: No Status: Acute Code(s): L03.90 - Cellulitis, unspecified (2) History of pulmonary embolism Current Visit: Yes Status: Acute Code(s): Z86.711 - Personal history of pulmonary embolism (3) Lymphedema Current Visit: Yes Status: Acute Code(s): I89.0 - Lymphedema, not elsewhere classified (4) Obstructive sleep apnea Current Visit: No Status: Chronic Code(s): G47.33 - Obstructive sleep apnea (adult) (pediatric) (5) Anemia Current Visit: No Status: Acute Code(s): D64.9 - Anemia, unspecified Qualifiers: Anemia type: other cause Other causes of anemia: other cause, not classified Qualified Code(s): D64.89 - Other specified anemias - Assessment / Plan Additional Assessment/Plan Details: Admit the patient. I discussed with infectious disease. They are happy with our choice of Ancef and think that he probably will need at least 5 days of IV antibiotics and then consider going to a gram of Keflex 3 times a day. They think it is most likely consistent with Streptococcus etiology with lymphangitic spread. There is no faina pus coming out of the ulcer so this is probably a nonpurulent cellulitis. Spoke with emergency room nurse and the patient has varying heart rate with position changes so we'll have to watch very closely. She also confirmed with me that the systolic pressure 75 was actually accurate, so this patient is starting to hit criteria for sepsis. We will give boluses of normal saline to do fluid resuscitation the setting of probable developing sepsis which would be about 5000 mL of crystalloid. We'll start that with normal saline. Check labs in a.m. Keep on heart monitor. Blood cultures are drawn and are pending. Really no faina pus to get for wound culture when I examined the stasis ulcer. Try to keep patient on track with his weight loss efforts as he has lost 60 pounds since March of this year. Continue home medications PT and OT and PT for wound care as well as strengthening conditioning Patient is full code Plan above discussed with patient and his and they agreed. They're also aware that the patient does get sicker and developed sepsis, that I would need to look at considering transfer to a facility with an production inspector and they agreed with that as well.
[2018-01-14] MEDS ORDERED: HYDROmorphone 2 MG/1 ML IVP PRN (17:43)
[2018-01-14] MEDS ORDERED: DOCUSATE 100 MG CAPSULE PO PRN (17:43)
[2018-01-14] MEDS ORDERED: VIT D3 VIT K PO SCH (17:43)
[2018-01-14] MEDS ORDERED: CALCIUM CARBONATE 500 MG (TUMS) CHEWABLE TABLET PO PRN (17:43)
[2018-01-14] MEDS ORDERED: ONDANSETRON 4 MG/2 ML VIAL IVP PRN (17:43)
[2018-01-14] MEDS ORDERED: HOPS PO SCH (17:43)
[2018-01-14] MEDS ORDERED: LIDOCAINE W/ SODIUM BICARB 0.5 ML SYR SUBD PRN (17:43)
[2018-01-14] MEDS ORDERED: BERBERINE PO SCH (17:43)
[2018-01-14] MEDS: ACETAMINOPHEN 325 MG TABLET PO PRN (20:55)
[2018-01-14] MEDS: Apixaban 5 MG TABLET PO SCH (20:56)
[2018-01-14] MEDS: Sodium Chloride 0.9% 1,000 ML PRIMARY IV SCH (23:43)
[2018-01-14] MEDS: ceFAZolin Inj 2gm (Premix) 2 GM/50 ML BAG IV SCH (23:43)
[2018-01-15 05:01] LABS: BASOPHILS # (AUTO) 0.01 10*3/UL; BASOPHILS % (AUTO) 0.3 % (0-1); EOSINOPHILS # (AUTO) 0.08 10*3/UL; EOSINOPHILS % (AUTO) 2.2 % (0-8); Hematocrit [HCT] 37.6 % (42.0-52.0); Hemoglobin [HGB] 11.9 g/dL (14.0-18.0); LYMPHOCYTES # (AUTO) 0.54 10*3/uL; MEAN CORPUSCULAR HEMOGLOBIN 29.2 PG (27-31); MEAN CORPUSCULAR HGB CONC 31.6 g/dL (33-37); MEAN CORPUSCULAR VOLUME 92.4 FL (80-90); MEAN PLATELET VOLUME 10.9 FL (7.4-12.2); MONOCYTES # (AUTO) 0.38 10*3/UL (0.3-0.8); MONOCYTES % (AUTO) 10.4 % (5-15); NEUTROPHILS # (AUTO) 2.65 10*3/UL; NEUTROPHILS % (AUTO) 72.1 % (50-80); RED BLOOD COUNT 4.07 10^6/uL (4.70-6.10)
[2018-01-15 05:04] LABS: PLATELET MORPHOLOGY COMMENT NORMAL MORPHOLOGY (NORM); RBC MORPHOLOGY COMMENT NORMAL MORPHOLOGY (NORM); WBC MORPHOLOGY COMMENT NORMAL MORPHOLOGY (NORM)
[2018-01-15 05:08] LABS: BLOOD UREA NITROGEN 18 mg/dL (7-22)
[2018-01-15] MEDS: ceFAZolin Inj 2gm (Premix) 2 GM/50 ML BAG IV SCH ×3 (06:42→23:37)
[2018-01-15] MEDS: Multivitamin Tab 1 TAB PO SCH (08:36)
[2018-01-15] MEDS: POTASSIUM CHLORIDE 20 MEQ TAB PO SCH (08:36)
[2018-01-15] MEDS: VENLAFAXINE XR 75 MG CAP PO SCH (08:36)
[2018-01-15] MEDS: Apixaban 5 MG TABLET PO SCH ×2 (08:36→20:25)
[2018-01-15] MEDS: FUROSEMIDE 40 MG TABLET PO SCH (08:36)
[2018-01-15] MEDS ORDERED: NIACIN 500 MG PO SCH (09:00)
[2018-01-15] MEDS: Sodium Chloride 0.9% 1,000 ML PRIMARY IV SCH (10:57)
[2018-01-15] MEDS: ACETAMINOPHEN 325 MG TABLET PO PRN (11:08)
[2018-01-15] MEDS: HYDROcodone/IBUPROFEN 7.5 MG/200 MG TABLET PO PRN (12:19)
--- NOTE | 2018-01-15 17:19 | PDOC(PROG) ---
Date of Service: 01/15/18 Time of Service: 17:14 Interval History: Patient seen and evaluated earlier today. No chest pain. No shortness breath. No nausea or vomiting. Feels like his leg is not quite as tender as it had been yesterday. Redness is about the same. Objective : Data - Labs CBC and BMP: 01/15/18 04:25 01/15/18 04:25 Additional Lab Results: MRSA screen negative. Objective : Exam - General General Appearance: No Acute Distress, Cooperative, Morbidly Obese Additional General Exam Details: Vital Signs - Last Taken Temperature 97.6 F 01/15/18 16:09 Pulse Rate 72 01/15/18 16:09 Respiratory Rate 16 01/15/18 16:09 Blood Pressure 109/62 01/15/18 16:09 Pulse Ox 98 01/15/18 16:09 - Eye Eye Exam: No Scleral Icterus - ENT ENT Exam: Mucous Membranes Moist - Respiratory Respiratory Exam: Clear to Auscultation - Bilaterally, Breathing Non Labored - Cardiovascular Cardiovascular Exam: RRR, No Murmur, No Clicks, No Gallops, No Rubs, No JVD - GI/Abdominal GI/Abdominal Exam: Normal Bowel Sounds, Non Tender, Non Distended, Soft - Extremities Extremities Exam: No Clubbing Present, No Cyanosis Present, +2 Edema Additional Extremities Exam Details: Left lower extremity still has streaking erythema, macular in nature, less hot, not tender to palpation today. - Neurological Neurological Exam: Alert, Oriented x 3, No Facial Droop, Speech Intact / Clear, Moves All Extremities Equally - Psychiatric Psychiatric Exam: Normal Affect, Normal Mood - Central Line Examination Central Line Present on Admission: No Assessment and Plan - Patient Problems (1) Cellulitis Current Visit: Yes Status: Acute Code(s): L03.90 - Cellulitis, unspecified (2) History of pulmonary embolism Current Visit: Yes Status: Acute Code(s): Z86.711 - Personal history of pu lmonary embolism (3) Lymphedema Current Visit: Yes Status: Acute Code(s): I89.0 - Lymphedema, not elsewhere classified (4) Obstructive sleep apnea Current Visit: No Status: Chronic Code(s): G47.33 - Obstructive sleep apnea (adult) (pediatric) (5) Anemia Current Visit: No Status: Acute Code(s): D64.9 - Anemia, unspecified Qualifiers: Anemia type: other cause Other causes of anemia: other cause, not classified Qualified Code(s): D64.89 - Other specified anemias (6) Thrombocytopenia Current Visit: Yes Status: Acute Code(s): D69.6 - Thrombocytopenia, unspecified - Assessment / Plan Additional Assessment/Plan Details: CONTINUE Ancef, day #2 today, and I suspect that the patient will need consideration for IV antibiotic therapy through the duration due to his body habitus and distribution of antibiotic. We might be able to go to oral antibiotics but I would prefer that this decision is made by an infectious disease physician on an outpatient basis when the patient is stable for discharge. He is not there yet. The patient might benefit from a lymphedema clinic postoperatively and after this infection heals. Continue encouraging diet and exercise. I'm not sure about this weight at 429 pounds today he weighed at 380 yesterday I think there is some significant discrepancy on the scale. He was 440 pounds on a recorded weight in March 2017. Labs in a.m. Information on some lymphedema clinics. Continue PT and OT and wound care.
[2018-01-16 04:51] LABS: BASOPHILS # (AUTO) 0.02 10*3/UL; BASOPHILS % (AUTO) 0.6 % (0-1); EOSINOPHILS # (AUTO) 0.09 10*3/UL; EOSINOPHILS % (AUTO) 2.8 % (0-8); Hematocrit [HCT] 35.8 % (42.0-52.0); Hemoglobin [HGB] 11.4 g/dL (14.0-18.0); LYMPHOCYTES # (AUTO) 0.58 10*3/uL; MEAN CORPUSCULAR HEMOGLOBIN 29.5 PG (27-31); MEAN CORPUSCULAR HGB CONC 31.8 g/dL (33-37); MEAN CORPUSCULAR VOLUME 92.7 FL (80-90); MEAN PLATELET VOLUME 10.9 FL (7.4-12.2); MONOCYTES # (AUTO) 0.31 10*3/UL (0.3-0.8); MONOCYTES % (AUTO) 9.8 % (5-15); NEUTROPHILS # (AUTO) 2.15 10*3/UL; NEUTROPHILS % (AUTO) 68.1 % (50-80); RED BLOOD COUNT 3.86 10^6/uL (4.70-6.10)
[2018-01-16 05:01] LABS: PLATELET MORPHOLOGY COMMENT NORMAL MORPHOLOGY (NORM); RBC MORPHOLOGY COMMENT NORMAL MORPHOLOGY (NORM); WBC MORPHOLOGY COMMENT NORMAL MORPHOLOGY (NORM)
[2018-01-16 05:02] LABS: BLOOD UREA NITROGEN 20 mg/dL (7-22)
[2018-01-16] MEDS: ceFAZolin Inj 2gm (Premix) 2 GM/50 ML BAG IV SCH ×3 (07:13→23:23)
[2018-01-16] MEDS: Apixaban 5 MG TABLET PO SCH ×2 (08:37→21:00)
[2018-01-16] MEDS: VENLAFAXINE XR 75 MG CAP PO SCH (08:37)
[2018-01-16] MEDS: FUROSEMIDE 40 MG TABLET PO SCH (08:37)
[2018-01-16] MEDS: Multivitamin Tab 1 TAB PO SCH (08:37)
[2018-01-16] MEDS: POTASSIUM CHLORIDE 20 MEQ TAB PO SCH (08:37)
[2018-01-16] MEDS: HYDROcodone/IBUPROFEN 7.5 MG/200 MG TABLET PO PRN ×2 (08:40→14:59)
--- NOTE | 2018-01-16 10:38 | PDOC(PROG) ---
Interval History: Patient is in good spirits wound is improving compared to when he first came in I will personally looked at it with the family wound care. As pain nausea or vomiting Objective : Data - Labs CBC and BMP: 01/16/18 04:28 01/16/18 04:28 Objective : Exam - General General Appearance: Cooperative - Respiratory Respiratory Exam: Clear to Auscultation - Bilaterally, Breathing Non Labored, Normal To Percussion, Normal to Percussion and Palpation - Cardiovascular Cardiovascular Exam: RRR, No Murmur, No Clicks, No Gallops, No Rubs, PMI Non- Displaced - GI/Abdominal GI/Abdominal Exam: Normal Bowel Sounds, Non Tender, Non Distended, Soft, No Masses, No Hepatomegaly, No Splenomegaly, No Organomegaly - Extremities Additional Extremities Exam Details: Wounds left lower extremity cellulitis less red it's closing in smaller than when he first came in Assessment and Plan - Patient Problems (1) Cellulitis Current Visit: Yes Status: Acute Comment: Continue IV cefazolin will consult for infectious disease tomorrow if needing IV or can switch to by mouth white count or left shift is improved no fever continue wound care. Also on special order lymphatic Pump once the wound is healed for him this will decrease his recurrence Code(s): L03.90 - Cellulitis, unspecified (2) Obstructive sleep apnea Current Visit: No Status: Chronic Code(s): G47.33 - Obstructive sleep apnea (adult) (pediatric) (3) Anemia Current Visit: No Status: Acute Code(s): D64.9 - Anemia, unspecified Qualifiers: Anemia type: other cause Other causes of anemia: other cause, not classified Qualified Code(s): D64.89 - Other specified anemias (4) History of pulmonary embolism Current Visit: Yes Status: Acute Code(s): Z86.711 - Personal history of pulmonary embolism (5) Lymphedema Current Visit: Yes Status: Acute Code(s): I89.0 - Lymphedema, not elsewhere classified (6) Thrombocytopenia Current Visit: Yes Status: Acute Code(s): D69.6 - Thrombocytopenia, unspecified
[2018-01-17 05:11] LABS: BASOPHILS # (AUTO) 0.02 10*3/UL; BASOPHILS % (AUTO) 0.6 % (0-1); EOSINOPHILS # (AUTO) 0.15 10*3/UL; EOSINOPHILS % (AUTO) 4.5 % (0-8); Hematocrit [HCT] 35.4 % (42.0-52.0); Hemoglobin [HGB] 11.3 g/dL (14.0-18.0); LYMPHOCYTES # (AUTO) 0.65 10*3/uL; MEAN CORPUSCULAR HEMOGLOBIN 29.4 PG (27-31); MEAN CORPUSCULAR HGB CONC 31.9 g/dL (33-37); MEAN CORPUSCULAR VOLUME 91.9 FL (80-90); MEAN PLATELET VOLUME 10.7 FL (7.4-12.2); MONOCYTES # (AUTO) 0.38 10*3/UL (0.3-0.8); MONOCYTES % (AUTO) 11.3 % (5-15); NEUTROPHILS # (AUTO) 2.13 10*3/UL; NEUTROPHILS % (AUTO) 63.6 % (50-80); RED BLOOD COUNT 3.85 10^6/uL (4.70-6.10)
[2018-01-17 05:24] LABS: BLOOD UREA NITROGEN 21 mg/dL (7-22); SERUM ALBUMIN 3.3 g/dL (3.5-4.8)
[2018-01-17 05:39] LABS: PLATELET MORPHOLOGY COMMENT NORMAL MORPHOLOGY (NORM); RBC MORPHOLOGY COMMENT NORMAL MORPHOLOGY (NORM); WBC MORPHOLOGY COMMENT NORMAL MORPHOLOGY (NORM)
[2018-01-17] MEDS: ceFAZolin Inj 2gm (Premix) 2 GM/50 ML BAG IV SCH (07:04)
[2018-01-17] MEDS: FUROSEMIDE 40 MG TABLET PO SCH (08:16)
[2018-01-17] MEDS: Multivitamin Tab 1 TAB PO SCH (08:16)
[2018-01-17] MEDS: Apixaban 5 MG TABLET PO SCH (08:16)
[2018-01-17] MEDS: POTASSIUM CHLORIDE 20 MEQ TAB PO SCH (08:16)
[2018-01-17] MEDS: VENLAFAXINE XR 75 MG CAP PO SCH (08:16)
[2018-01-17] MEDS: ACETAMINOPHEN 325 MG TABLET PO PRN (08:16)
--- NOTE | 2018-01-17 10:40 | PTI REPORT ---
Thank you for the referral of Codey Sarmiento. He was seen on 01/15/18 for an inpatient evaluation secondary to cellulitis and an open wound of the left lower extremity. SUBJECTIVE: The patient is a 57-year-old male. The patient reports that wound that he has been treated for as an outpatient has gotten worse as well as the drainage. He states he was out with his in [place] and wasn't feeling well, and recognizing what happened last year that placed him in the hospital, he went to the emergency room where it was decided he needed IV antibiotics and was admitted to the hospital. PAST MEDICAL HISTORY: Past medical history can be found in the patient's medical record. OBJECTIVE FINDINGS: General observations: Upon inspection, the patient is morbidly obese with significant swelling of the left lower extremity as compared to the right by approximately 25% with redness in the medial leg all the way up to the groin. Pain: The patient reports a pain level, specifically in his wound in his left lower extremity upwards of 8/10 on the verbal analog scale (0=no pain, 10=worst pain). It was found that he has a DVT of the superficial saphenous vein. Wound: The patient has an open wound venous ulcer on the left anterior and lateral aspect of his leg with irregular borders and heavy serous drainage that measures 11 centimeters long x 13 centimeters wide. Bed mobility: The patient is able to perform bed mobility with stand by assistance. Ambulation: The patient is able to ambulate up to 250 feet before having to take a rest break due to the pain in his left lower extremity. Strength: Strength was not formally tested at this time for bilateral lower or upper extremities due to his IVs and pain level. ASSESSMENT: Problem List: Open wound Left lower extremity edema Generalized deconditioning Physical Therapy Goals: To be met by discharge from inpatient: Patient will promote clean wound healing. Patient will be able to ambulate up to 300 feet continuously for community ambulation and return to work activities. Patient will be able to tolerate 10-15 minutes of continuous physical activity without a rest in order to be able to return to work safely. TREATMENT PLAN: Patient will be seen B.I.D during the week and one time per day over the weekend as an inpatient for wound care for the left lower extremity. INITIAL TREATMENT: Treatment today consisted of the initial evaluation followed by issuing the patient two cast shoes due to the significant edema and not being able to fit in his shoes and for sanitary reasons secondary to the amount of drainage coming from his wound. His left lower extremity was cleansed with wound cleanser followed by an application of Promogran Marielena [employer] as supplied by the physical therapy department followed by Adaptic over the open areas, Unna-boot up the left leg, Kerlix, ABD pads, and Coban. He then ambulated all the way downstairs to therapy with two standing rest breaks due to pain in the left lower extremity. He performed boxing activities for bilateral upper extremities in an unsupported standing position with 3 1-2 minute rest breaks followed by ambulating all the way back up to his room. FLORENCIO
--- NOTE | 2018-01-17 10:43 | PT AM DAY ---
Diagnosis : Cellulitis/Open Wound Left Lower Extremity AM - Physical Therapy S: The patient reports he is feeling better. He states Dr. Gutierrez wants to take a look at his wound. O: Following inspection of the wound by Dr. Gutierrez, the wound was cleansed with wound cleanser followed by an application of Promogran Marielena as supplied by the physical therapy department, Adaptic, Unna-boot, Kerlix, ABD pads, and Coban. The patient ambulated downstairs to therapy with stand by assistance and gait belt. He was able to perform therapeutic exercises and functional activities including sit to stands, box step ups, arm bike, and boxing. He then ambulated all the way back upstairs to his room with stand by assistance. A: The patient is in good spirits and is willing to do whatever he needs to do to maintain a healthy lifestyle. P: Continue seeing patient BID during the week and one time per day over the weekend for wound care, transfers, ambulation, and range of motion/strengthening exercises. FLORENCIO
[2018-01-17] MEDS ORDERED: Ertapenem Inj 1 GM in Sodium Chloride 0.9% 100 ML IV SCH (10:45)
--- NOTE | 2018-01-17 11:18 | DCSUMMARY ---
Hospitalization Summary Hospital Course: Final Discharge Diagnosis: Current Visit Problems Problem Status Onset Code Cellulitis Acute L03.90 History of pulmonary embolism Acute Z86.711 Lymphedema Acute I89.0 Cellulitis of left leg Acute L03.116 Venous stasis ulcer Acute I83.009, L97.909 Thrombocytopenia Acute D69.6 Diagnostic Data, Laboratory Data, and Procedures of Signifigance: Laboratory Results 01/16/18 01/16/18 01/17/18 04:28 04:28 05:00 WBC 3.35 L RBC 3.85 L Hgb 11.3 L Hct 35.4 L MCV 91.9 H MCH 29.4 MCHC 31.9 L RDW Std Deviation 49.7 RDW Coeff of Roxanne 15.2 H Plt Count 133 L MPV 10.7 Immature Gran % (Auto) 0.6 Neut % (Auto) 63.6 Lymph % (Auto) 19.4 [place] % (Auto) 11.3 Eos % (Auto) 4.5 Baso % (Auto) 0.6 Immature Gran # (Auto) 0.02 Neut # (Auto) 2.13 Lymph # (Auto) 0.65 [place] # (Auto) 0.38 Eos # (Auto) 0.15 Baso # (Auto) 0.02 WBC Morphology Comment Normal morphology Plt Morphology Comment Normal morphology RBC Morph Comment Normal morphology Sodium Potassium Chloride Carbon Dioxide Anion Gap BUN Creatinine Estimated GFR BUN/Creatinine Ratio Glucose Calculated Osmolality Calcium Magnesium Total Bilirubin AST ALT Alkaline Phosphatase Total Protein Albumin Globulin Albumin/Globulin Ratio Vitamin B12 575 Vitamin D 25-Hydroxy 40.8 Serum Folate 20.0 01/17/18 05:00 WBC RBC Hgb Hct MCV MCH MCHC RDW Std Deviation RDW Coeff of Roxanne Plt Count MPV Immature Gran % (Auto) Neut % (Auto) Lymph % (Auto) [place] % (Auto) Eos % (Auto) Baso % (Auto) Immature Gran # (Auto) Neut # (Auto) Lymph # (Auto) [place] # (Auto) Eos # (Auto) Baso # (Auto) WBC Morphology Comment Plt Morphology Comment RBC Morph Comment Sodium 138 Potassium 4.2 Chloride 107 Carbon Dioxide 22 L Anion Gap 9 BUN 21 Creatinine 0.7 Estimated GFR > 60 BUN/Creatinine Ratio 30.00 H Glucose 93 Calculated Osmolality 288.0 Calcium 8.2 L Magnesium 1.8 Total Bilirubin 0.7 AST 29 ALT 25 Alkaline Phosphatase 93 Total Protein 6.9 Albumin 3.3 L Globulin 3.6 Albumin/Globulin Ratio 0.90 L Vitamin B12 Vitamin D 25-Hydroxy Serum Folate History and Physical pertinent to Admission: Past Medical History Medical History: Depression, morbid obesity, chronic venous insufficiency, history of pulmonary emboli, provoked, superficial DVT left side that went to the junction of the common femoral vein (the greater saphenous vein on the left lower extremity still has clots) probably chronic in nature. Obstructive sleep apnea. Surgical History: 1. Prior extremity surgery. Pertinent Family History: Significant for obesity. He's also learned that one of his brothers has had several bouts of soft tissue skin infections. Past Social History: Does not currently smoke or drink. . No children. Tobacco Use: Former Smoker In the Past 12 Months, Have Used or Abuse Any of the Following Substance: None Alcohol Use: None Course of Hospitalization: This very nice 57-year-old gentleman with a prior history of thrush having cellulitis and morbid obesity, and lymphedema and history of venous stasis ulcer admitted for left lower extremity recurrent cellulitis 2 weeks ago was given doxycycline by his primary care physician Dr. Landa had discussed the case with the infectious disease in [place] and was started on cefazolin patient improved his wound looked a lot better when me and the physical therapist wound care looked at it and patient's blood work looks good with cultures are negative and the cellulitis is improving I discussed the case with infectious disease in [place] at this point we will do Invanz 1 g daily IV for a total of 10 days he already received 3 days of cefazolin also we will have an appointment follow up with him tomorrow with Dr. Caraballo to decide on length of therapy and how much time he needs to be off his work. He is also being set up with a company that helps with the lymphedema patients is looks healing there is no pus drainage and it is not wet On the date of discharge, the patient was examined: Gen.: No acute distress, alert, nontoxic Heart: Regular rate and rhythm, no murmurs, clicks, gallops, or rubs Lungs: Clear to auscultation bilaterally, breathing is nonlabored Abdomen/GI: Normal tones on auscultation, soft, nontender, nondistended Musculoskeletal/extremities: No clubbing, cyanosis, or edema lymphedema bilateral lower extremities Vitals reviewed and are listed below Assessment and Plan: 1. As per discharge assessments above 2. Disposition: Home 3. Condition on discharge, stable and improved. 4. Diet: regular diet 5. Activities: resume normal activities 6. Follow-Up: 1. PCP and infectious disease specialty in a.m. 2. 7. Medications at the Time of Discharge: Home Medications Medication Instructions Recorded Confirmed Type Apixaban [Eliquis] 5 mg PO BID 03/24/17 01/14/18 History multivitamin tablet 1 tab PO QDAY ea 04/07/17 01/14/18 History vitamin D3 500 unit-vit K 500 1 tab PO QDAY ea 04/07/17 01/14/18 History mcg-berberine 90 mg-hops 370 mg tablet venlafaxine ER 150 mg 150 mg PO QDAY #90 cap 09/13/17 01/14/18 Rx capsule,extended release 24 hr furosemide 40 mg tablet 40 mg PO QDAY #90 tab 12/31/17 01/14/18 Rx potassium chloride ER 20 mEq 20 meq PO QDAY #90 tab 12/31/17 01/14/18 Rx tablet,extended release(part/cryst) Niacin 500 mg PO DAILY 01/14/18 01/14/18 History Ertapenem Inj [INVanz Inj] 1 gm IV Q24H #7 vial 01/17/18 Rx 8. Time, care, counseling and coordination of care for this discharge is greater than 30 minutes. Exam - Vitals Vital Signs: Vital Signs Temperature 97.1 F Temperature Source Temporal Artery Scan Pulse Rate [Pulse Oximeter 73 Right] Pulse Rate 73 Respiratory Rate 18 Blood Pressure [Left Arm] 104/65 Blood Pressure [Right Arm] 138/68 Blood Pressure [Left Radial 124/77 Artery] Blood Pressure 113/88 Pulse Ox 94 Oxygen Delivery Method Room Air Height 6 ft 1 in Weight 437 lb Patient Problems - Patient Problem List (1) Cellulitis Current Visit: Yes Status: Acute Code(s): L03.90 - Cellulitis, unspecified Category: Medical (2) Obstructive sleep apnea Current Visit: No Status: Chronic Code(s): G47.33 - Obstructive sleep apnea (adult) (pediatric) Category: Medical (3) Anemia Current Visit: No Status: Acute Code(s): D64.9 - Anemia, unspecified Qualifiers: Anemia type: other cause Other causes of anemia: other cause, not classified Qualified Code(s): D64.89 - Other specified anemias Category: Medical (4) History of pulmonary embolism Current Visit: Yes Status: Acute Code(s): Z86.711 - Personal history of pulmonary embolism Category: Medical (5) Lymphedema Current Visit: Yes Status: Acute Code(s): I89.0 - Lymphedema, not elsewhere classified Category: Medical (6) Thrombocytopenia Current Visit: Yes Status: Acute Code(s): D69.6 - Thrombocytopenia, unspecified Category: Medical
--- NOTE | 2018-01-18 11:35 | PT AM DAY ---
Diagnosis : Cellulitis/Open Wound Left Lower Extremity AM - Physical Therapy S: Theo states that he is doing better and feels that the size of his leg has gone down significantly. He continues to have quite a bit of drainage through the Unna-boot that he has on; so much that he has a bag around the foot to help catch the drainage. O: Treatment today consisted of removing the Unna-boot from yesterday. The lower extremity was cleansed with wound cleanser. The patient has copious amounts of serous drainage weeping from his wound. He does have some areas of serosanguineous drainage from the wound that is on the anterior part of his aleman. After the wound was cleansed, bhaskar was placed into the wound bed and Adaptic was placed all around the wound area. The wound was then wrapped with Unna-boot, ABD pads secondary to his drainage, Kerlix, and Coban. The patient was instructed on therapeutic exercises including arm bike x10 minutes and NuStep x10 minutes. The patient then ambulated back up to his room. A: We will switch to dressing changes 2x a day secondary to the amount of drainage he is having at the wound site. We will continue with general strengthening activities. P: Continue seeing patient BID during the week and one time per day over the weekend for wound care, transfers, ambulation, and range of motion/strengthening exercises. MTDD
--- NOTE | 2018-01-18 14:51 | OTI REPORT ---
Thank you for the referral of Codey Sarmiento. He was seen on 01/17/18 for an occupational therapy inpatient evaluation secondary to cellulitis and an open wound on his left lower extremity. SUBJECTIVE: The patient is a 57-year-old male who is being seen secondary to having cellulitis in his left leg. He reports that he has been dealing with this for quite some time, but recently there has been an increase in fluid output and his leg has become larger and redder. The patient is getting IV antibiotics at this time. 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 He states he typically sits most of the day, but does get up to perform some tasks. Prior to admission the patient was independent with all of his ADLs including dressing self. He was trying to come in to outpatient therapy to increase his strength and overall abilities. PAST MEDICAL HISTORY: Past medical history can be found in the patient's medical record. OBJECTIVE FINDINGS: Bed mobility: The patient was able to come from supine to sit with increased time. Activities of daily living: While sitting edge of bed, secondary to lower extremity edema, the patient had a little bit of difficulty bending over and putting on his shoe and he needed min assist for this. The patient completed hygiene activities while standing at the sink with stand by assist. Transfers: The patient is able to transfer from sit to stand with stand by assist. The patient was observed completing a toilet transfer with stand by assist. Range of motion: Upper extremity active range of motion is within normal limits. Strength: Strength throughout upper extremities is 4+/5 in all planes and ranges. ASSESSMENT: Problem List: Decreased ability to complete functional mobility Decreased strength Short-Term Goals: To be met by discharge from inpatient: Patient will increase upper extremity strength to 5/5 to improve upper extremity mobility. Patient will be able to dress lower extremities independently including set up without assistance. Patient will demonstrate independence with all functional transfers and dynamic activities. Long-Term Goals: To be met following discharge from inpatient: Patient will return home, demonstrating safety and independence with all functional activities, ADLs, and functional transfers. TREATMENT PLAN: Patient will be seen B.I.D during the week and one time per day over the weekend as an inpatient to address the above goals and objectives. INITIAL TREATMENT: Treatment today consisted of the initial evaluation followed by the patient donning shoes with min assist. The patient completed a toilet transfer with stand by assistance and functional standing activities at the sink x5 minutes with stand by assist. Downstairs in therapy he performed the upper body ergometer x5 minutes forward and 5 minutes backward to increase upper extremity strength. FLORENCIO
== END 2018-01-17 13:10 | disposition home or self-care (01) | DRG 603 ==
LOC: ER 13:22 → MED/SURG 17:30
PROVIDERS: ADMIT Family Medicine; ATTEND Family Medicine

== ENCOUNTER 2018-04-09 07:33 | Observation (INO) ==
[2018-04-09] MEDS ORDERED: KETOROLAC 15 MG/1 ML VIAL IVP ONE (07:44)
[2018-04-09] MEDS ORDERED: Sodium Chloride 0.9% 1,000 ML PRIMARY IV ONE ×2 (07:44→11:39)
[2018-04-09] MEDS ORDERED: ONDANSETRON 4 MG/2 ML VIAL IVP ONE (07:44)
--- NOTE | 2018-04-09 07:50 | PDOC ---
Gen Adult / Medical Screen HPI - General Chief Complaint: General Medical Stated Complaint: fever, body aches, dizziness Date Seen by Provider: 04/09/18 Time Seen by Provider: 07:35 Source: POSITIVE: Patient, Spouse Exam Limitations: POSITIVE: No limitations Nurse's Notes Reviewed & Considered: Yes - Indicators Severe Pain (Greater than 5/10 Reported): No Chest or Abdominal Pain: No Inability to Walk: No Pt Reports Active High Risk Cond. (TB/Hepatitis/HIV/Chemo): No Abnormal Mental Status: No - History of Present Illness Initial Comments: This is a well-developed, well-nourished, very pleasant, 57-year-old male, who is complaining of not feeling well. Patient began to develop symptoms yesterday with headache, sore throat, mild cough, body aches, nausea but no vomiting, he did have an episode of diarrhea yesterday, no dysuria or hematuria, no rashes. Body Location Affected: REPORTS: Head, Chest, Abdomen Timing: REPORTS: Abrupt Duration: <24 hours Similar Symptoms Previously: No Recent Care Received: REPORTS: Denies Any Prior Injuries Related to Current Complaint?: No - Patient Home Medications Home Medications: Home Medications Apixaban [Eliquis] 5 mg PO BID 03/24/17 multivitamin tablet 1 tab PO QDAY ea 04/07/17 vitamin D3 500 unit-vit K 500 mcg-berberine 90 mg-hops 370 mg tablet 1 tab PO QDAY ea 04/07/17 venlafaxine ER 150 mg capsule,extended release 24 hr 150 mg PO QDAY #90 cap 09/13/17 Niacin 500 mg PO DAILY 01/14/18 potassium chloride ER 20 mEq tablet,extended release(part/cryst) 20 meq PO BID #180 tab 02/01/18 salsalate 750 mg tablet 1,500 mg PO BID 02/22/18 furosemide 40 mg tablet 40 mg PO BID #180 tab 03/01/18 amoxicillin 500 mg tablet 500 mg PO BID 03/29/18 - Patient Allergies Allergies/Adverse Reactions: Allergies Allergy/AdvReac Type Severity Reaction Status Date / Time No Known Drug Allergies Allergy NOT Verified 04/09/18 07:40 APPLICABLE Past Medical History - heen HEENT History: Denies History Cardiovascular History: DVTs Additional Cardiovasular History: In left groin due to injury, PERICARDITIS Respiratory History: Pneumonia, Pulmonary Embolism, Snoring Additional Respiratory History: RECURRENT MAXILLARY SINUSITIS,BRONCHITIS Gastrointestinal History: Diverticulitis Genitourinary History: Kidney Stones Additional Genitourinary History: 2001 Endocrine History: Denies History Musculoskeletal History: Arthritis, Other (please comment) Prosthesis or Implant: No Additional Musculoskeletal History: 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 SIG LE ,VENOUS I NCOMPETENCE,MORBID OBESITY Neurological History: Denies History Blood Disorders: Anemia Additional Blood Disorders History: Fahed reported Psychiatric History: Depression, PTSD History of Sexually Transmitted Diseases: No Cancer History: Denies History History of MDRO: No History of Other Communicable Diseases: No Alcohol Use: Occasionally In the Past 12 Months, Have Used or Abuse Any Substance: None Previous Surgical History: Yes Type / Date of Surgery: R elbow cyst 1983/[place] teeth/Removal of impacted tooth in 1973 Anesthesia Reactions: No Malignant Hyperthermia: No Significant Family History: Other (please comment) Additional Family History: POLIO,IBS,RHEUMATIC FEVER ROS - Limitations ROS Limitations: No Limitations Constitution: REPORTS: Fever Respiratory: REPORTS: Cough Non Productive Neurological: REPORTS: Headache Gastrointestinal: REPORTS: Nausea, Vomitting, Diarrhea Endocrine: REPORTS: Fatigue Musculoskeletal: REPORTS: Muscle Aches Genitourinary: REPORTS: Denies Symptoms Eyes: REPORTS: Denies Symptoms ENT: REPORTS: Nasal Drainage, Sore Throat Skin: REPORTS: Denies Skin Symptoms Lympathic: REPORTS: Denies Lympathic Symptoms Immunologic: POSITIVE: Denies Symptoms Psychiatric: POSITIVE: Denies Psych Symptoms Gen Adult/Medical Screen Exam - General Appearance General Appearance: POSITIVE: Alert, Cooperative, No Acute Distress, No Evidence of Trauma - HEENT HEENT: POSITIVE: Head Inspection Nml, Eyes Inspection Nml, Ears Inspection Nml, Nose Inspection Nml, Oral/Dental Inspect. Nml, Pharynx Inspect. Nml, PERRL, EOMI - Pupils Pupil Size: 5 mm: Bilateral - Neck Neck: POSITIVE: Normal Inspection - Respiratory Respiratory: POSITIVE: No Respiratory Distress, Breath Sounds Normal, Chest Non- Tender - Cardiovascular Cardiovascular: POSITIVE: Regular Rate & Rhythm, No Murmur, No Gallop, PMI Normal Peripheral Pulses: Radial (L): 4+ - Abdomen Abdomen: Soft: (All Quadrants), Normal Bowel Sounds: (All Quadrants), Denies Tenderness: (All Quadrants), No Splenomegaly: (All Quadrants), No Hepatomegaly: (All Quadrants), No Guarding: (All Quadrants), No Rebound: (All Quadrants), No Palpable Pulse: (All Quadrants), No Palpabale Mass: (All Quadrants), No Diste ntion: (All Quadrants), No Rigidity: (All Quadrants) - Back Back: POSITIVE: Normal Inspection - Neurological / Psychological Mental Status: POSITIVE: Mood Normal, Affect Normal Orientation: POSITIVE: Oriented x 3 - Skin Skin: POSITIVE: Normal Color, Warm, Dry, No Rash - Extremities Extremity: Non-Tender: (All Extremities), Normal ROM: (All Extremities), Normal Inspection: (All Extremities), Pelvis Stable: (All Extremities) Procedures - Laceration/Wound Repair Did patient have a laceration repair: No Gen Adlt/Medical Scrn Progress - Results Reviewed by me Xrays/CTs/US Reviewed by me: No Discussed with Radiologist: No Lab Results Reviewed by Me: No CBC and BMP: 04/09/18 07:57 Lab Results:: Laboratory Results 04/09/18 04/09/18 04/09/18 07:57 07:57 08:03 WBC 7.36 RBC 4.26 L Hgb 12.6 L Hct 38.4 L MCV 90.1 H MCH 29.6 MCHC 32.8 L RDW Std Deviation 50.6 H RDW Coeff of Roxanne 15.7 H Plt Count 147 MPV 10.3 Immature Gran % (Auto) 0.1 Neut % (Auto) 88.4 H Lymph % (Auto) 5.8 L [place] % (Auto) 5.2 Eos % (Auto) 0.4 Baso % (Auto) 0.1 Immature Gran # (Auto) 0.01 Neut # (Auto) 6.50 Lymph # (Auto) 0.43 [place] # (Auto) 0.38 Eos # (Auto) 0.03 Baso # (Auto) 0.01 WBC Morphology Comment Normal morphology Plt Morphology Comment Normal morphology RBC Morph Comment Normal morphology VBG pH 7.58 H VBG pCO2 25 L VBG HCO3 24 VBG Base Excess 2 Lactic Acid 1.0 - Patient's Progress Pain Medication Addressed: POSITIVE: Yes Re-Examine Time: 09:04 Status: POSITIVE: Improved MDM / ED Course: Patient was evaluated, an IV started, blood drawn and sent to the lab for studies, chest x-ray was obtained. Patient received a liter of normal saline, Toradol, and Zofran. While awaiting laboratory and radiological findings my shift has ended and I have turned over care to Dr. Jeanmarie Tapia. For elucidation of laboratory findings, radiologic findings, assessment and plan please see his dictation. Patient Care Time - Estimated PCT Patient Care Time (In Minutes): 20 Vital Signs - VS Reviewed Vital Signs Reviewed: Yes Discharge Clinical Impression: Fever Condition: Stable Follow Up With: HANNA FUENTES [Primary Care Provider] -
[2018-04-09 08:12] LABS: VENOUS PH 7.58 (7.32-7.42)
[2018-04-09 08:31] LABS: BASOPHILS # (AUTO) 0.01 10*3/UL; BASOPHILS % (AUTO) 0.1 % (0-1); EOSINOPHILS # (AUTO) 0.03 10*3/UL; EOSINOPHILS % (AUTO) 0.4 % (0-8); Hematocrit [HCT] 38.4 % (42.0-52.0); Hemoglobin [HGB] 12.6 g/dL (14.0-18.0); LYMPHOCYTES # (AUTO) 0.43 10*3/uL; MEAN CORPUSCULAR HEMOGLOBIN 29.6 PG (27-31); MEAN CORPUSCULAR HGB CONC 32.8 g/dL (33-37); MEAN CORPUSCULAR VOLUME 90.1 FL (80-90); MEAN PLATELET VOLUME 10.3 FL (7.4-12.2); MONOCYTES # (AUTO) 0.38 10*3/UL (0.3-0.8); MONOCYTES % (AUTO) 5.2 % (5-15); NEUTROPHILS % (AUTO) 88.4 % (50-80); RED BLOOD COUNT 4.26 10^6/uL (4.70-6.10)
--- NOTE | 2018-04-09 08:41 | DI ---
PA + LATERAL CXR: HISTORY: 57-year-old male with fever. COMPARISON: None. FINDINGS: The lungs are clear, without consolidation to indicate pneumonia. There is borderline cardiomegaly. No obvious hilar or mediastinal mass. No pneumothorax or effusion. Bones and chest wall soft tissues are grossly unremarkable, apart from mild degenerative changes of the spine. IMPRESSION: No abnormality identified to explain fever.
[2018-04-09 08:53] LABS: PLATELET MORPHOLOGY COMMENT NORMAL MORPHOLOGY (NORM); RBC MORPHOLOGY COMMENT NORMAL MORPHOLOGY (NORM); WBC MORPHOLOGY COMMENT NORMAL MORPHOLOGY (NORM)
[2018-04-09 09:01] LABS: BLOOD UREA NITROGEN 24 mg/dL (7-22); BUN/CREATININE RATIO 26.66 (6-20); SERUM ALBUMIN 3.7 g/dL (3.5-4.8)
--- NOTE | 2018-04-09 10:52 | PDOC ---
Transfer of Care - Care Accepted Time Care Transferred: 09:00 Report from Transferring Physician Received: Yes (Dr. Yen) MDM / ED Course: The patient is a 57-year-old male who presents to the emergency department this morning with complaints of fever. He states that he had onset of fever and chills associated with general malaise and diarrhea last night. He states he continued to have some diarrhea through the night. He also had associated nausea without any vomiting. His temperature got up to 101.5 at home and he subsequently came here to the emergency department. He had taken 2 Tylenol prior to arriving in the emergency department. 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 He had been seen in physical therapy yesterday and had the leg rewrapped and he was told that the leg was looking very good. He denies any increased leg pain. He has not had any associated congestion, sore throat or cough. He denies any current abdominal pain. He denies chest pain or shortness of breath. The patient had received a dose of To radol and a bolus of normal saline. Chest x-ray been completed which was normal. The remainder of his labs were pending at the time patient care was transferred. A respiratory viral fire swab as well as rapid strep had been sent to the lab and is pending. Home Medications: Home Medications Apixaban [Eliquis] 5 mg PO BID 03/24/17 multivitamin tablet 1 tab PO QDAY ea 04/07/17 vitamin D3 500 unit-vit K 500 mcg-berberine 90 mg-hops 370 mg tablet 1 tab PO QDAY ea 04/07/17 venlafaxine ER 150 mg capsule,extended release 24 hr 150 mg PO QDAY #90 cap 09/13/17 Niacin 500 mg PO DAILY 01/14/18 potassium chloride ER 20 mEq tablet,extended release(part/cryst) 20 meq PO BID #180 tab 02/01/18 salsalate 750 mg tablet 1,500 mg PO BID 02/22/18 furosemide 40 mg tablet 40 mg PO BID #180 tab 03/01/18 amoxicillin 500 mg tablet 500 mg PO BID 03/29/18 Allergies/Adverse Reactions: Allergies No Known Drug Allergies Allergy (Verified 04/09/18 07:40) NOT APPLICABLE Vital Signs Reviewed: Yes Nurse's Notes Reviewed & Considered: Yes - Pending Patient Care Items Pending Patient Care Items: POSITIVE: Labs - Re-Evaluation of Patient Disposition of Patient: POSITIVE: Admitted Counseled: POSITIVE: Patient, Family, RE: Lab Results, RE: Radiology Results, RE: DX Pending Test Results Documented: Yes Clinical Impression Documented: Yes - Results Reviewed Lab Results Reviewed by Me: Yes Lab Results: Laboratory Results 04/09/18 04/09/18 04/09/18 07:57 07:57 07:57 WBC 7.36 RBC 4.26 L Hgb 12.6 L Hct 38.4 L MCV 90.1 H MCH 29.6 MCHC 32.8 L RDW Std Deviation 50.6 H RDW Coeff of Roxanne 15.7 H Plt Count 147 MPV 10.3 Immature Gran % (Auto) 0.1 Neut % (Auto) 88.4 H Lymph % (Auto) 5.8 L [place] % (Auto) 5.2 Eos % (Auto) 0.4 Baso % (Auto) 0.1 Immature Gran # (Auto) 0.01 Neut # (Auto) 6.50 Lymph # (Auto) 0.43 Forrest # (Auto) 0.38 Eos # (Auto) 0.03 Baso # (Auto) 0.01 WBC Morphology Comment Normal morphology Plt Morphology Comment Normal morphology RBC Morph Comment Normal morphology VBG pH VBG pCO2 VBG HCO3 VBG Base Excess Sodium 137 Potassium 3.8 Chloride 105 Carbon Dioxide 23 Anion Gap 9 BUN 24 H Creatinine 0.9 Estimated GFR > 60 BUN/Creatinine Ratio 26.66 H Glucose 97 Calculated Osmolality 287.0 Lactic Acid 1.0 Calcium 8.8 Magnesium 1.9 Total Bilirubin 1.1 AST 50 ALT 15 L Alkaline Phosphatase 89 C-Reactive Protein 2.0 H NT-Pro-B Natriuret Pep 761 H Total Protein 7.3 Albumin 3.7 Globulin 3.6 Albumin/Globulin Ratio 1.00 L Ur Collection Type Urine Color Urine Clarity Urine pH Ur Specific [place] Urine Protein Urine Glucose (UA) Urine Ketones Urine Occult Blood Urine Nitrate Urine Bilirubin Urine Urobilinogen Ur Leukocyte Esterase Urine RBC Urine WBC Ur Squamous Epith Cells Ur Renal Epithelial Cell Urine Crystals Urine Bacteria Urine Casts Urine Mucus Urine Trichomonas Urine Yeast Ur Culture Indicated? Group A Strep Screen 04/09/18 04/09/18 04/09/18 08:03 09:30 11:06 WBC RBC Hgb Hct MCV MCH MCHC RDW Std Deviation RDW Coeff of Roxanne Plt Count MPV Immature Gran % (Auto) Neut % (Auto) Lymph % (Auto) [place] % (Auto) Eos % (Auto) Baso % (Auto) Immature Gran # (Auto) Neut # (Auto) Lymph # (Auto) [place] # (Auto) Eos # (Auto) Baso # (Auto) WBC Morphology Comment Plt Morphology Comment RBC Morph Comment VBG pH 7.58 H VBG pCO2 25 L VBG HCO3 24 VBG Base Excess 2 Sodium Potassium Chloride Carbon Dioxide Anion Gap BUN Creatinine Estimated GFR BUN/Creatinine Ratio Glucose Calculated Osmolality Lactic Acid Calcium Magnesium Total Bilirubin AST ALT Alkaline Phosphatase C-Reactive Protein NT-Pro-B Natriuret Pep Total Protein Albumin Globulin Albumin/Globulin Ratio Ur Collection Type Clean catch urine Urine Color Yellow Urine Clarity Clear Urine pH 7.0 Ur Specific [place] 1.015 Urine Protein 30 A Urine Glucose (UA) Negative Urine Ketones Trace A Urine Occult Blood Negative Urine Nitrate Negative Urine Bilirubin Small Urine Urobilinogen 4.0 Ur Leukocyte Esterase Negative Urine RBC None Urine WBC None Ur Squamous Epith Cells Few Ur Renal Epithelial Cell None Urine Crystals None Urine Bacteria None Urine Casts None Urine Mucus Few Urine Trichomonas None Urine Yeast None Ur Culture Indicated? Culture not set Group A Strep Screen Negative - Consult Consult (If Yes, Name of Consulting MD & Time Called): Yes (Dr. Gutierrez) Recommendations:: The patient's temperature had come down to 98.5 after administrations of fluid and Toradol. The patient was feeling slightly better. He continues to have some mild headache and general malaise. His temperature did come up to 99.6 again and he stated that his muscle aches were returning. His chest x-ray showed no evidence of any acute cardiopulmonary finding per radiologist. His white count was normal at 7 with a slight left shift with no bandemia. His lactate was 1.0 and his CRP is mildly elevated at 2.0. The remainder of his blood work is essentially unremarkable. Respiratory panel was negative for any pathogens. Strep screen was negative. These findings were discussed with the patient. His clinical presentation may be consistent with a viral gastroenteritis. Another possibility given that he has been on antibiotics for so long would be C. difficile colitis. Blood cultures are pending at this point. These findings were discussed with the patient and his . Given that the patient still has significant malaise and fever it was decided that it would be best to admit the patient for further observation and treatment. Dr. Gutierrez has agreed to admit the patient. Patient Care Time - Estimated PCT Patient Care Time (In Minutes): 30 Vital Signs - Recent Vital Signs Vital Signs: Vital Signs (Last 8 hours) Temp Pulse Resp BP Pulse Ox 04/09/18 09:14 97.4 F 93 20 96/59 94 04/09/18 09:05 98.5 F - VS Reviewed Vital Signs Reviewed: Yes Discharge Clinical Impression: Fever, Diarrhea Discharge Disposition: Admit to Observation Condition: Fair
[2018-04-09] MEDS ORDERED: Acetaminophen 1000mg Inj 1,000 MG/100 ML VIAL IV PRN (11:02)
[2018-04-09 11:12] LABS: BILIRUBIN,URINE SMALL (NEG); CLARITY,URINE CLEAR (CLEAR); COLOR,URINE YELLOW (Y); GLUCOSE, URINE (UA) NEGATIVE (NEG); OCCULT BLOOD,URINE NEGATIVE (NEG); PROTEIN,URINE 30 mg/dl (NEG)
[2018-04-09 11:19] LABS: SQUAMOUS EPITHELIAL CELL,UR FEW; URINE SAMPLE TYPE CLEAN CATCH URINE
[2018-04-09] MEDS ORDERED: HOPS PO SCH (12:38)
[2018-04-09] MEDS ORDERED: BERBERINE PO SCH (12:38)
[2018-04-09] MEDS ORDERED: LIDOCAINE W/ SODIUM BICARB 0.5 ML SYR SUBD PRN (12:38)
[2018-04-09] MEDS ORDERED: VIT D3 VIT K PO SCH (12:38)
[2018-04-09] MEDS ORDERED: ACETAMINOPHEN 500 MG TABLET PO PRN (20:05)
[2018-04-09] MEDS: POTASSIUM CHLORIDE 20 MEQ TAB PO SCH (20:41)
[2018-04-09] MEDS: AMOXICILLIN 500 MG CAPSULE PO SCH (20:41)
[2018-04-09] MEDS: Apixaban 5 MG TABLET PO SCH (20:42)
[2018-04-09] MEDS: FUROSEMIDE 40 MG TABLET PO SCH (20:42)
[2018-04-10 05:20] LABS: BASOPHILS # (AUTO) 0.02 10*3/UL; BASOPHILS % (AUTO) 0.6 % (0-1); EOSINOPHILS # (AUTO) 0.03 10*3/UL; EOSINOPHILS % (AUTO) 0.9 % (0-8); Hematocrit [HCT] 40.9 % (42.0-52.0); Hemoglobin [HGB] 13.2 g/dL (14.0-18.0); MEAN CORPUSCULAR HEMOGLOBIN 29.8 PG (27-31); MEAN CORPUSCULAR HGB CONC 32.3 g/dL (33-37); MEAN CORPUSCULAR VOLUME 92.3 FL (80-90); MEAN PLATELET VOLUME 10.6 FL (7.4-12.2); MONOCYTES # (AUTO) 0.24 10*3/UL (0.3-0.8); NEUTROPHILS # (AUTO) 2.63 10*3/UL; NEUTROPHILS % (AUTO) 76.6 % (50-80); RED BLOOD COUNT 4.43 10^6/uL (4.70-6.10)
[2018-04-10 05:31] LABS: BLOOD UREA NITROGEN 17 mg/dL (7-22); BUN/CREATININE RATIO 21.25 (6-20)
[2018-04-10 05:52] LABS: PLATELET MORPHOLOGY COMMENT NORMAL MORPHOLOGY (NORM); RBC MORPHOLOGY COMMENT SEE COMMENTS (NORM); WBC MORPHOLOGY COMMENT NORMAL MORPHOLOGY (NORM)
[2018-04-10] MEDS ORDERED: FUROSEMIDE 10 MG/1 ML - 4 ML IVP ONE (06:48)
[2018-04-10] MEDS ORDERED: NIACIN 500 MG PO SCH (09:00)
[2018-04-10] MEDS ORDERED: Multivitamin Tab 1 TAB PO SCH (09:00)
[2018-04-10] MEDS ORDERED: VENLAFAXINE HCL XR 150 MG CAP PO SCH (09:00)
[2018-04-10] MEDS: Apixaban 5 MG TABLET PO SCH (09:08)
[2018-04-10] MEDS: AMOXICILLIN 500 MG CAPSULE PO SCH (09:09)
[2018-04-10] MEDS: POTASSIUM CHLORIDE 20 MEQ TAB PO SCH (09:09)
[2018-04-10 09:15] VITALS: BP 120/89; RESP 20; TEMP 98.7; O2SAT 97
[2018-04-10] MEDS: FUROSEMIDE 40 MG TABLET PO SCH (09:34)
--- NOTE | 2018-04-10 09:52 | PDOC ---
HPI - History of Present Illness Date of Service: 04/09/18 Chief Complaint: General malaise and body aches History of Present Illness: This very nice gentleman well-known to me 57-year-old comes to the hospital because for the last few days she's had the sore throat and generalized body aches some nausea and one episode of diarrhea and overall not feeling well. All his labs were negative we will be we will admit him for hydration and observation most likely viral gastroenteritis and dehydration Past Medical History Medical History: Depression, morbid obesity, chronic venous insufficiency, history of pulmonary emboli, provoked, superficial DVT left side that went to the junction of the common femoral vein (the greater saphenous vein on the left lower extremity still has clots) probably chronic in nature. Obstructive sleep apnea. Surgical History: 1. Prior extremity surgery. Pertinent Family History: Significant for obesity. He's also learned that one of his brothers has had several bouts of soft tissue skin infections. Past Social History: Does not currently smoke or drink. . No children. Tobacco Use: Never Smoker In the Past 12 Months, Have Used or Abuse Any of the Following Substance: None Medication / Allergies Home Medications: Home Medications Medication Instructions Recorded Confirmed Type Apixaban [Eliquis] 5 mg PO BID 03/24/17 04/09/18 History multivitamin tablet 1 tab PO QDAY ea 04/07/17 04/09/18 History vitamin D3 500 unit-vit K 500 1 tab PO QDAY ea 04/07/17 04/09/18 History mcg-berberine 90 mg-hops 370 mg tablet venlafaxine ER 150 mg 150 mg PO QDAY #90 cap 09/13/17 04/09/18 Rx capsule,extended release 24 hr Niacin 500 mg PO DAILY 01/14/18 04/09/18 History potassium chloride ER 20 mEq 20 meq PO BID #180 tab 02/01/18 04/09/18 Rx tablet,extended release(part/cryst) salsalate 750 mg tablet 1,500 mg PO BID 02/22/18 04/09/18 History furosemide 40 mg tablet 40 mg PO BID #180 tab 03/01/18 04/09/18 Rx amoxicillin 500 mg tablet 500 mg PO BID 03/29/18 04/09/18 History Allergies/Adverse Reactions: Allergies Allergy/AdvReac Type Severity Reaction Status Date / Time No Known Drug Allergies Allergy NOT Verified 04/10/18 06:37 APPLICABLE Review of Systems - Review of Systems All Systems: Reviewed & No Additional Complaints Except as Stated - Respiratory Respiratory: REPORTS: Cough - Cardiovascular Cardiovascular: DENIES: Negative System Review, Chest Pain, Edema, Syncope, Pa lpitations, Orthopnea, Paroxysmal Nocturnal Dyspnea, Other, See HPI - Gastrointestinal Gastrointestinal / Abdominal: REPORTS: Nausea, Diarrhea - Neurological Neurologic: DENIES: Negative System Review, Headache, Numbness/Paresthesia, Tremors, Weakness, Seizures, Head Trauma, LOC, Dizziness, Confusion, Memory Loss, Difficulty Walking, Incoordination, Other, See HPI Exam - Vitals Vital Signs: Vital Signs Temperature 98.7 F Temperature Source Temporal Artery Scan Pulse Rate [Pulse Oximeter] 78 Pulse Rate [Bilateral Radial] 82 Respiratory Rate 20 Blood Pressure [Right Arm] 120/89 Blood Pressure [Left Arm] 101/53 Pulse Ox 97 Oxygen Flow Rate 1 Oxygen Delivery Method Room Air Height 6 ft 1 in Weight 400 lb - General General Appearance: No Acute Distress, Cooperative - Eye Eye Exam: POSITIVE: Normal Appearance, PERRL, EOMI, No Scleral Icterus - Respiratory Respiratory Exam: POSITIVE: Clear to Auscultation - Bilaterally, Breathing Non Labored, Normal To Percussion, Normal to Percussion and Palpation - Cardiovascular Cardiovascular Exam: POSITIVE: RRR, No Murmur, No Clicks, No Gallops, No Rubs, PMI Non-Displaced - GI/Abdominal GI/Abdominal Exam: POSITIVE: Normal Bowel Sounds, Non Tender, Non Distended, Soft, No Masses, No Hepatomegaly, No Splenomegaly, No Organomegaly - Extremities Extremities Exam: POSITIVE: No Clubbing Present, No Edema Present - Neurological Neurological Exam: POSITIVE: Alert, Oriented x 3, No Facial Droop, Speech Intact / Clear - Psychiatric Psychiatric Exam: POSITIVE: Normal Affect, Normal Mood Results - Labs CBC and BMP: 04/10/18 04:27 04/10/18 04:27 Assessment and Plan - Patient Problems (1) Viral gastroenteritis Current Visit: Yes Status: Acute Comment: We'll hydrate the patient check for C. difficile Tylenol for fever and generalized aches Code(s): A08.4 - Viral intestinal infection, unspecified (2) Dehydration Current Visit: Yes Status: Acute Code(s): E86.0 - Dehydration (3) Diarrhea Current Visit: Yes Status: Acute Code(s): R19.7 - Diarrhea, unspecified (4) Fever Current Visit: Yes Status: Acute Code(s): R50.9 - Fever, unspecified
--- NOTE | 2018-04-10 09:54 | DCSUMMARY ---
Hospitalization Summary Admit Date: 04/09/2018 Discharge Date: 04/10/18 Primary Diagnosis:: viral gastritis Secondary Diagnosis:: Dehydration Hospital Course: Final Discharge Diagnosis: Current Visit Problems Problem Status Onset Code Fever Acute R50.9 Diarrhea Acute R19.7 Viral gastroenteritis Acute A08.4 Dehydration Acute E86.0 Diagnostic Data, Laboratory Data, and Procedures of Signifigance: Laboratory Results 04/09/18 04/09/18 04/10/18 08:03 11:06 04:27 WBC 3.43 L RBC 4.43 L Hgb 13.2 L Hct 40.9 L MCV 92.3 H MCH 29.8 MCHC 32.3 L RDW Std Deviation 53.7 H RDW Coeff of Roxanne 16.1 H Plt Count 112 L MPV 10.6 Immature Gran % (Auto) 0.3 Neut % (Auto) 76.6 Lymph % (Auto) 14.6 [place] % (Auto) 7.0 Eos % (Auto) 0.9 Baso % (Auto) 0.6 Immature Gran # (Auto) 0.01 Neut # (Auto) 2.63 Lymph # (Auto) 0.50 [place] # (Auto) 0.24 L Eos # (Auto) 0.03 Baso # (Auto) 0.02 WBC Morphology Comment Normal morphology Plt Morphology Comment Normal morphology RBC Morph Comment See comments VBG pH 7.58 H VBG pCO2 25 L VBG HCO3 24 VBG Base Excess 2 Sodium Potassium Chloride Carbon Dioxide Anion Gap BUN Creatinine Estimated GFR BUN/Creatinine Ratio Glucose Calculated Osmolality Calcium Ur Collection Type Clean catch urine Urine Color Yellow Urine Clarity Clear Urine pH 7.0 Ur Specific [place] 1.015 Urine Protein 30 A Urine Glucose (UA) Negative Urine Ketones Trace A Urine Occult Blood Negative Urine Nitrate Negative Urine Bilirubin Small Urine Urobilinogen 4.0 Ur Leukocyte Esterase Negative Urine RBC None Urine WBC None Ur Squamous Epith Cells Few Ur Renal Epithelial Cell None Urine Crystals None Urine Bacteria None Urine Casts None Urine Mucus Few Urine Trichomonas None Urine Yeast None Ur Culture Indicated? Culture not set 04/10/18 04:27 WBC RBC Hgb Hct MCV MCH MCHC RDW Std Deviation RDW Coeff of Roxanne Plt Count MPV Immature Gran % (Auto) Neut % (Auto) Lymph % (Auto) [place] % (Auto) Eos % (Auto) Baso % (Auto) Immature Gran # (Auto) Neut # (Auto) Lymph # (Auto) [place] # (Auto) Eos # (Auto) Baso # (Auto) WBC Morphology Comment Plt Morphology Comment RBC Morph Comment VBG pH VBG pCO2 VBG HCO3 VBG Base Excess Sodium 141 Potassium 4.4 Chloride 105 Carbon Dioxide 28 Anion Gap 8 BUN 17 Creatinine 0.8 Estimated GFR > 60 BUN/Creatinine Ratio 21.25 H Glucose 101 Calculated Osmolality 293.0 H Calcium 8.7 Ur Collection Type Urine Color Urine Clarity Urine pH Ur Specific [place] Urine Protein Urine Glucose (UA) Urine Ketones Urine Occult Blood Urine Nitrate Urine Bilirubin Urine Urobilinogen Ur Leukocyte Esterase Urine RBC Urine WBC Ur Squamous Epith Cells Ur Renal Epithelial Cell Urine Crystals Urine Bacteria Urine Casts Urine Mucus Urine Trichomonas Urine Yeast Ur Culture Indicated? History and Physical pertinent to Admission: Course of Hospitalization: Is a very nice 57-year-old gentleman with multiple medical problems specifically chronic lower extremity infection on suppressive therapy with antibiotics was feeling not well with generalized malaise one episode of diarrhea and body aches patient was negative for respiratory bilateral fire which includes influenza. C. difficile was negative patient was rehydrated with 3 L and this morning he feels back to his normal self with no fever and had a good breakfast with no nausea. He will be discharged home in stable and improved condition On the date of discharge, the patient was examined: Gen.: No acute distress, alert, nontoxic Heart: Regular rate and rhythm, no murmurs, clicks, gallops, or rubs Lungs: Clear to auscultation bilaterally, breathing is nonlabored Abdomen/GI: Normal tones on auscultation, soft, nontender, nondistended Musculoskeletal/extremities: No clubbing, cyanosis, or edema Vitals reviewed and are listed below Assessment and Plan: 1. As per discharge assessments above 2. Disposition: Home 3. Condition on discharge, stable and improved. 4. Diet: regular diet 5. Activities: resume normal activities 6. Follow-Up: 1. PCP 2. 7. Medications at the Time of Discharge: Home Medications Medication Instructions Recorded Confirmed Type Apixaban [Eliquis] 5 mg PO BID 03/24/17 04/09/18 History multivitamin tablet 1 tab PO QDAY ea 04/07/17 04/09/18 History vitamin D3 500 unit-vit K 500 1 tab PO QDAY ea 04/07/17 04/09/18 History mcg-berberine 90 mg-hops 370 mg tablet venlafaxine ER 150 mg 150 mg PO QDAY #90 cap 09/13/17 04/09/18 Rx capsule,extended release 24 hr Niacin 500 mg PO DAILY 01/14/18 04/09/18 History potassium chloride ER 20 mEq 20 meq PO BID #180 tab 02/01/18 04/09/18 Rx tablet,extended release(part/cryst) salsalate 750 mg tablet 1,500 mg PO BID 02/22/18 04/09/18 History furosemide 40 mg tablet 40 mg PO BID #180 tab 03/01/18 04/09/18 Rx amoxicillin 500 mg tablet 500 mg PO BID 03/29/18 04/09/18 History 8. Time, care, counseling and coordination of care for this discharge is greater than 30 minutes. Exam - Vitals Vital Signs: Vital Signs Temperature 98.7 F Temperature Source Temporal Artery Scan Pulse Rate [Pulse Oximeter] 78 Pulse Rate [Bilateral Radial] 82 Respiratory Rate 20 Blood Pressure [Right Arm] 120/89 Blood Pressure [Left Arm] 101/53 Pulse Ox 97 Oxygen Flow Rate 1 Oxygen Delivery Method Room Air Height 6 ft 1 in Weight 400 lb Patient Problems - Patient Problem List (1) Viral gastroenteritis Current Visit: Yes Status: Acute Code(s): A08.4 - Viral intestinal infection, unspecified Category: Medical (2) Dehydration Current Visit: Yes Status: Acute Code(s): E86.0 - Dehydration Category: Medical (3) Diarrhea Current Visit: Yes Status: Acute Code(s): R19.7 - Diarrhea, unspecified Category: Medical (4) Fever Current Visit: Yes Status: Acute Code(s): R50.9 - Fever, unspecified Category: Medical
--- NOTE | 2018-04-12 15:45 | EKG ---
[address] [place] [address] Measurements Intervals [place] Rate: 86 P: 39 NV: 201 QRS: -44 QRSD: 103 T: 81 QT: 390 QTc: 433 Interpretive Statements SINUS RHYTHM MARKED LEFT AXIS DEVIATION [QRS AXIS < -30] LOW QRS VOLTAGE IN PRECORDIAL LEADS [QRS DEFLECTION < 1.0 mV IN CHEST LEADS] POSSIBLE ANTERIOR MYOCARDIAL INFARCTION [30 ms Q WAVE IN V3/V4, OR R < 0.2 mV IN V4], PROBABLY OLD Compared to ECG 01/14/2018 13:52:25 Left-axis deviation now present Myocardial infarct finding still present Electronically Signed On 04-13-18 09:02:28 [facility] by Dawit Barboza MD [email or web address]
[2018-04-13 07:35] LABS: PARASITIC EXAM FIN 2249
== END 2018-04-10 10:04 | disposition home or self-care (01) ==
LOC: ER 07:33 → MED/SURG 07:33
PROVIDERS: ADMIT Internal Medicine; ATTEND Internal Medicine

== ENCOUNTER 2018-06-02 08:22 | Inpatient (IN) ==
[2018-06-02] MEDS ORDERED: Sodium Chloride 0.9% 1,000 ML PRIMARY IV ONE (09:17)
--- NOTE | 2018-06-02 09:20 | EKG ---
[address] [address] Measurements Intervals [place] Rate: 83 P: 56 CT: 191 QRS: -38 QRSD: 101 T: 64 QT: 368 QTc: 408 Interpretive Statements SINUS RHYTHM LEFT AXIS DEVIATION LOW QRS VOLTAGE ANTEROSEPTAL MYOCARDIAL INFARCTION OF INDETERMINATE AGE Compared to ECG 05/03/2018 21:47:09 Sinus arrhythmia no longer present Myocardial infarct finding still present Electronically Signed On 06-02-18 09:47:10 [facility] by Zeferino Garcia [email or web address]
[2018-06-02 09:24] LABS: BASOPHILS # (AUTO) 0.02 10*3/UL; BASOPHILS % (AUTO) 0.2 % (0-1); EOSINOPHILS # (AUTO) 0.15 10*3/UL; EOSINOPHILS % (AUTO) 1.7 % (0-8); Hematocrit [HCT] 35.8 % (42.0-52.0); Hemoglobin [HGB] 11.9 g/dL (14.0-18.0); LYMPHOCYTES # (AUTO) 0.87 10*3/uL; MEAN CORPUSCULAR HEMOGLOBIN 30.1 PG (27-31); MEAN CORPUSCULAR HGB CONC 33.2 g/dL (33-37); MEAN CORPUSCULAR VOLUME 90.4 FL (80-90); MEAN PLATELET VOLUME 11.4 FL (7.4-12.2); MONOCYTES # (AUTO) 0.63 10*3/UL (0.3-0.8); NEUTROPHILS # (AUTO) 7.31 10*3/UL; NEUTROPHILS % (AUTO) 81.2 % (50-80); RED BLOOD COUNT 3.96 10^6/uL (4.70-6.10)
[2018-06-02 09:32] LABS: PLATELET MORPHOLOGY COMMENT NORMAL MORPHOLOGY (NORM); RBC MORPHOLOGY COMMENT NORMAL MORPHOLOGY (NORM); WBC MORPHOLOGY COMMENT NORMAL MORPHOLOGY (NORM)
[2018-06-02 09:33] LABS: VENOUS PH 7.66 (7.32-7.42)
[2018-06-02 09:35] LABS: BLOOD UREA NITROGEN 16 mg/dL (7-22); BUN/CREATININE RATIO 17.77 (6-20); SERUM ALBUMIN 3.7 g/dL (3.5-4.8)
--- NOTE | 2018-06-02 10:57 | PDOC ---
HPI - History of Present Illness History of Present Illness: This very nice 57-year-old gentleman well-known to our service he's been having some diaphoresis and intermittent fever and has left lower extremity is seemed a little bit more redder to him and he's had this before and is on chronic antibiotic suppression and decided to come into the ER. It looks like he does have some increased redness and swelling in his left lower extremity and he is diaphoretic. I told [facility]. We'll be admitting him for lower extremity cellulitis and start him on antibiotics since he does have a left shift but no white count yet and a most likely he caught a very early as he was instructed to do he is very in tune with his lower extremities to see when they are infected Past Medical History Medical History: Depression, morbid obesity, chronic venous insufficiency, history of pulmonary emboli, provoked, superficial DVT left side that went to the junction of the common femoral vein (the greater saphenous vein on the left lower extremity still has clots) probably chronic in nature. Obstructive sleep apnea. Surgical History: 1. Prior extremity surgery. Pertinent Family History: Significant for obesity. He's also learned that one of his brothers has had several bouts of soft tissue skin infections. Past Social History: Does not currently smoke or drink. . No children. Tobacco Use: Current Some Day Smoker In the Past 12 Months, Have Used or Abuse Any of the Following Substance: None Medication / Allergies Home Medications: Home Medications Medication Instructions Recorded Confirmed Type Apixaban [Eliquis] 5 mg PO BID 03/24/17 06/02/18 History multivitamin tablet 1 tab PO QDAY ea 04/07/17 06/02/18 History vitamin D3 500 unit-vit K 500 1 tab PO QDAY ea 04/07/17 06/02/18 History mcg-berberine 90 mg-hops 370 mg tablet venlafaxine ER 150 mg 150 mg PO QDAY #90 cap 09/13/17 06/02/18 Rx capsule,extended release 24 hr Niacin 500 mg PO DAILY 01/14/18 06/02/18 History potassium chloride ER 20 mEq 20 meq PO BID #180 tab 02/01/18 06/02/18 Rx tablet,extended release(part/cryst) salsalate 750 mg tablet 1,500 mg PO BID 02/22/18 06/02/18 History furosemide 40 mg tablet 40 mg PO BID #180 tab 03/01/18 06/02/18 Rx amoxicillin 500 mg tablet 500 mg PO BID 03/29/18 06/02/18 History Allergies/Adverse Reactions: Allergies Allergy/AdvReac Type Severity Reaction Status Date / Time No Known Drug Allergies Allergy NOT Verified 05/03/18 21:39 APPLICABLE Review of Systems - Review of Systems All Systems: Reviewed & No Additional Complaints Except as Stated - Cardiovascular Cardiovascular: DENIES: Negative System Review, Chest Pain, Edema, Syncope, Palpitations, Orthopnea, Paroxysmal Nocturnal Dyspnea, Other, See HPI - Gastrointestinal Gastrointestinal / Abdominal: DENIES: Negative System Review, Nausea, Vomiting, Diarrhea, Constipation, Abdominal Pain, Bloody Stool, Poor Appetite, Heartburn, Regurgitation, Bloating, Lactose Intolerance, Melena, Bright Red Blood per Rectum, Other, See HPI - Genitourinary Genitourinary: DENIES: Negative System Review, Pain, Burning, Hematuria, Incontinence, Urgency, Hesitant Stream, Decreased Stream, Nocutria, Discharge, Sexual Dysfunction, Other, See HPI Exam - Vitals Vital Signs: Vital Signs Temperature 98.5 F Temperature Source Oral Pulse Rate [Pulse Oximeter 81 Left] Respiratory Rate 12 Blood Pressure [Left Arm] 113/77 Pulse Ox 93 Oxygen Delivery Method Room Air Height 6 ft Weight 382 lb - General General Appearance: Cooperative, Mild Distress - Head Head Exam: Normal Inspection, Normocephalic, Atraumatic - Eye Eye Exam: POSITIVE: Normal Appearance, PERRL, EOMI, No Scleral Icterus - Respiratory Respiratory Exam: POSITIVE: Clear to Auscultation - Bilaterally, Breathing Non Labored, Normal To Percussion, Normal to Percussion and Palpation - Cardiovascular Cardiovascular Exam: POSITIVE: RRR, No Murmur, No Clicks, No Gallops, No Rubs, PMI Non-Displaced - GI/Abdominal GI/Abdominal Exam: POSITIVE: Normal Bowel Sounds, Non Tender, Non Distended, Soft, No Masses, No Hepatomegaly, No Splenomegaly, No Organomegaly - Extremities Additional Extremities Exam Details: Bilateral swelling with venous stasis O chronic on the left side there is one spot about 4 x 4 centimeters and is ready more red and weeping Results - Labs CBC and BMP: 06/02/18 08:59 06/02/18 08:59 Assessment and Plan - Patient Problems (1) Cellulitis of left leg Current Visit: No Status: Acute Comment: u/s pending. start invanz Code(s): L03.116 - Cellulitis of left lower limb - Assessment / Plan Additional Assessment/Plan Details: Continue other home meds
[2018-06-02] MEDS ORDERED: Ertapenem Inj 1 GM in Sodium Chloride 0.9% 100 ML IV SCH (11:00)
[2018-06-02] MEDS ORDERED: Sodium Chloride 0.9% 100 ML IV ONE (11:39)
[2018-06-02] MEDS ORDERED: ERTAPENEM 1 GM VIAL ONE (11:39)
[2018-06-02] MEDS ORDERED: BERBERINE PO SCH (11:43)
[2018-06-02] MEDS ORDERED: HOPS PO SCH (11:43)
[2018-06-02] MEDS ORDERED: VIT D3 VIT K PO SCH (11:43)
--- NOTE | 2018-06-02 11:54 | DI ---
VENOUS DOPPLER ULTRASOUND OF BOTH LOWER EXTREMITIES, 06/02/2018 9:31 AM: Clinical History: Lower leg swelling. Previous Exam: 03/24/2017 for the right leg. 01/14/2018 for the left leg. Technique: 2D real-time imaging and color Doppler ultrasound with compression and augmentation maneuv ers. Deep Venous System: Normal deep venous system from groin to popliteal fossa bilaterally. Due to the p atient's body habitus, the deep femoral veins bilaterally could not be visualized. Superficial Venous System: Normal right greater saphenous vein. The left greater saphenous vein is cl otted in the mid thigh to the lower leg. Soft Tissues: There is edema in the subcutaneous fat bilaterally from the mid thigh distally. Readin. Negative venous Doppler ultrasound of both lower extremities for deep vein thrombosis. Neither pr ofunda femoral vein was visualized due to the patient's body habitus. 2. The right greater saphenous vein is patent. The left greater saphenous vein is occluded from the mid to distal thigh to the lower leg.
[2018-06-02] MEDS: VENLAFAXINE HCL XR 150 MG CAP PO SCH (13:08)
[2018-06-02] MEDS: POTASSIUM CHLORIDE 20 MEQ TAB PO SCH ×2 (13:08→20:19)
[2018-06-02] MEDS: Apixaban 5 MG TABLET PO SCH ×2 (13:09→20:19)
[2018-06-02] MEDS ORDERED: DOCUSATE 100 MG CAPSULE PO PRN (13:10)
[2018-06-02] MEDS ORDERED: CALCIUM CARBONATE 500 MG (TUMS) CHEWABLE TABLET PO PRN (13:10)
[2018-06-02] MEDS ORDERED: ONDANSETRON 4 MG/2 ML VIAL IVP PRN (13:10)
[2018-06-02] MEDS ORDERED: LIDOCAINE W/ SODIUM BICARB 0.5 ML SYR SUBD PRN (13:10)
[2018-06-02] MEDS ORDERED: SALSALATE PO SCH (13:45)
[2018-06-02] MEDS: Lactated Ringers 1,000 ML PRIMARY IV SCH ×2 (14:06→23:17)
[2018-06-02] MEDS: ACETAMINOPHEN 325 MG TABLET PO PRN ×2 (15:05→20:18)
[2018-06-02 16:20] LABS: BILIRUBIN,URINE MODERATE (NEG); CLARITY,URINE CLEAR (CLEAR); COLOR,URINE ORANGE (Y); GLUCOSE, URINE (UA) NEGATIVE (NEG); OCCULT BLOOD,URINE NEGATIVE (NEG); PROTEIN,URINE 30 mg/dl (NEG); UROBILINOGEN,URINE >8.0 EU/dL (0.2)
[2018-06-02 16:27] LABS: RBC,URINE 0 /hpf; SQUAMOUS EPITHELIAL CELL,UR RARE; URINE SAMPLE TYPE UCC; WBC,URINE 0-2
[2018-06-03] MEDS: MORPHINE SULFATE 2 MG/1 ML IVP PRN (02:17)
[2018-06-03 04:50] LABS: BASOPHILS # (AUTO) 0.01 10*3/UL; BASOPHILS % (AUTO) 0.3 % (0-1); EOSINOPHILS # (AUTO) 0.12 10*3/UL; Hematocrit [HCT] 32.9 % (42.0-52.0); Hemoglobin [HGB] 10.7 g/dL (14.0-18.0); LYMPHOCYTES # (AUTO) 0.53 10*3/uL; MEAN CORPUSCULAR HEMOGLOBIN 29.5 PG (27-31); MEAN CORPUSCULAR HGB CONC 32.5 g/dL (33-37); MEAN CORPUSCULAR VOLUME 90.6 FL (80-90); MEAN PLATELET VOLUME 10.9 FL (7.4-12.2); MONOCYTES # (AUTO) 0.36 10*3/UL (0.3-0.8); NEUTROPHILS # (AUTO) 2.96 10*3/UL; NEUTROPHILS % (AUTO) 73.9 % (50-80); RED BLOOD COUNT 3.63 10^6/uL (4.70-6.10)
[2018-06-03 04:56] LABS: PLATELET MORPHOLOGY COMMENT NORMAL MORPHOLOGY (NORM); RBC MORPHOLOGY COMMENT NORMAL MORPHOLOGY (NORM); WBC MORPHOLOGY COMMENT NORMAL MORPHOLOGY (NORM)
[2018-06-03 04:58] LABS: BLOOD UREA NITROGEN 16 mg/dL (7-22); BUN/CREATININE RATIO 22.85 (6-20); SERUM ALBUMIN 3.2 g/dL (3.5-4.8)
--- NOTE | 2018-06-03 05:15 | PDOC ---
Lower Extremity Problem HPI - General Chief Complaint: Nausea / Vomiting / Diarrhea Stated Complaint: pain and swelling, left lower leg Date Seen by Provider: 06/02/18 Time Seen by Provider: 08:55 Source: POSITIVE: Patient, Spouse, Old records Exam Limitations: POSITIVE: No limitations Nurse's Notes Reviewed & Considered: Yes - History of Present Illness Initial Comments: The patient is a 57-year-old male. He has a long-standing history of prominent bilateral leg edema with valvular insufficiency and probably lymphedema, ch ronic. Patient states that for the last 3 days he's been having some fever and increasing pain in his left lower extremity. He states that his temperature this morning just prior to coming to the emergency room was 99.7F. He states he's had some chills. Associated myalgia. Swelling with erythema and warmth to the distal half of the left lower extremity. Patient has had cellulitis to this extremity in the past. Patient is on Eliquist for DVT. No head chest or abdominal pain. No focal sensory or motor symptoms. Body Location Affected: REPORTS: Lower Extremity (L) Timing: REPORTS: Gradual, Getting Worse Duration: >24 hours (3 days) Severity: Moderate Context of Injury: REPORTS: Other (Severe chronic edema to both legs). DENIES: Fall, Twist, Direct Blow, Incision, Burn, Crush, Stab, Prolonged Pressure on Ext Location at Time of Onset: REPORTS: Home Quality: REPORTS: Aching (Left lower leg), "Pain" Modifying Factors: REPORTS: Walking, Other (Direct palpation) Associated Symptoms: DENIES: Chest Pain, Shortness of Breath, Rapid Heart Rate, Fainting, Other Recent Care Received: REPORTS: Recently Seen (Patient is being treated in physical therapy for his edema and also for a superficial ulcer over the lateral aspect of the left lower leg.) Any Prior Injuries Related to Current Complaint?: No - Patient Home Medications Home Medications: Home Medications Apixaban [Eliquis] 5 mg PO BID 03/24/17 multivitamin tablet 1 tab PO QDAY ea 04/07/17 venlafaxine ER 150 mg capsule,extended release 24 hr 150 mg PO QDAY #90 cap 09/13/17 potassium chloride ER 20 mEq tablet,extended release(part/cryst) 20 meq PO BID #180 tab 02/01/18 furosemide 40 mg tablet 40 mg PO BID #180 tab 03/01/18 amoxicillin 500 mg tablet 500 mg PO BID 03/29/18 Ascorbic Acid [Vitamin C] 1,000 mg PO DAILY 06/02/18 Cholecalciferol [Vitamin D3] 1,000 iu PO Q48H 06/02/18 Vitamin B Complex 1 tab PO DAILY 06/02/18 - Patient Allergies Allergies/Adverse Reactions: Allergies Allergy/AdvReac Type Severity Reaction Status Date / Time No Known Drug Allergies Allergy NOT Verified 06/02/18 21:02 APPLICABLE Past Medical History - heen HEENT History: Denies History Cardiovascular History: DVTs Additional Cardiovasular History: In left groin due to injury, PERICARDITIS Respiratory History: Pneumonia, Pulmonary Embolism, Snoring Additional Respiratory History: RECURRENT MAXILLARY SINUSITIS,BRONCHITIS Gastrointestinal History: Diverticulitis Genitourinary History: Denies History Additional Genitourinary History: 2001 Endocrine History: Denies History Musculoskeletal History: Arthritis, Other (please comment) Prosthesis or Implant: No Additional Musculoskeletal History: 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 SIG LE ,VENOUS INCOMPETENCE,MORBID OBESITY Neurological History: Denies History Blood Disorders: Anemia Additional Blood Disorders History: Fahed reported Psychiatric History: Depression, PTSD History of Sexually Transmitted Diseases: No Male Reproductive History: Denies History Cancer History: Denies History In Past Year Been Physically Harmed or Verbally Threatened: No History of MDRO: No History of Other Communicable Diseases: No Tobacco Use: Former Smoker Alcohol Use: Occasionally Type of alcohol normally used: Hard Liquor In the Past 12 Months, Have Used or Abuse Any Substance: None Previous Surgical History: Yes Type / Date of Surgery: R elbow cyst 1983/[place] teeth/Removal of impacted tooth in 1973 Anesthesia Reactions: No Malignant Hyperthermia: No Significant Family History: Other (please comment) Additional Family History: POLIO,IBS,RHEUMATIC FEVER Past Medical History Reviewed: Reviewed - No Changes ROS - Limitations ROS Limitations: No Limitations Constitution: REPORTS: Chills, Fever Cardiovascular: REPORTS: Denies Cardiac Symptoms Respiratory: REPORTS: Denies Resp Symptoms Neurological: REPORTS: Denies Neuro Symptoms Gastrointestinal: REPORTS: Denies GI Symptoms Endocrine: REPORTS: Denies Symptoms Musculoskeletal: REPORTS: Lower Extremity Swelling (Left lower leg swelling with associated redness warmth and pain), Muscle Aches Genitourinary: REPORTS: Denies Symptoms Eyes: REPORTS: Denies Symptoms ENT: REPORTS: Denies Symptoms Skin: REPORTS: Other (Cellulitis and swelling left lower leg) Lympathic: REPORTS: Other (Chronic edema both legs) Immunologic: POSITIVE: Denies Symptoms Psychiatric: POSITIVE: Denies Psych Symptoms Lower Ext Problem Exam - General Appearance General Appearance: POSITIVE: Alert, Cooperative, No Acute Distress, No Evidence of Trauma - Extremities Lower Extremity: POSITIVE: Tenderness, Swelling (Cellulitis left lower leg with superficial ulcer lateral aspect of left lower leg. Both distal legs prominently edematous, left greater than right) Joint Exam: POSITIVE: Normal ROM, Antalgic Gait, Painful. NEGATIVE: Normal Gait (Antalgic), Normal Weight Bearing, Ligamentous Instability, Effusion, Click, Crepitus, Limited ROM, Unable to Bear Weight, Joint Effusion Vascular: POSITIVE: No Vascular Compromise, Full Pulses, Equal Pulses - Neuro / Psych Neuro/Psych: POSITIVE: Sensation Normal, Motor Normal, Oriented to Person, Oriented to Place, Oriented to Time, closing manager Normal as Tested, Mood Appropriate, Affect Appropriate - Neck / Back / Pelvis Back / Neck: POSITIVE: Normal Inspection, Normal ROM - Skin Skin: POSITIVE: Warmth, Erythema - HEENT HEENT: POSITIVE: Head Inspection Nml, Eyes Inspection Nml, Ears Inspection Nml, Nose Inspection Nml, Oral/Dental Inspect. Nml, Pharynx Inspect. Nml, PERRL, EOMI - Respiratory / CVS Respiratory / CVS: POSITIVE: No Respiratory Distress, Breath Sounds Normal, Regular Rate/Rhythm, Heart Sounds Normal Peripheral Pulses: Radial (R): 2+, Radial (L): 2+, Dorsalis-pedis (R): 2+, Dorsalis-pedis (L): 2+ - Abdomen Abdomen: Soft: (All Quadrants), Normal Bowel Sounds: (All Quadrants), Denies Tenderness: (All Quadrants), No Splenomegaly: (All Quadrants), No Hepatomegaly: (All Quadrants), No Guarding: (All Quadrants), No Rebound: (All Quadrants), No Palpable Pulse: (All Quadrants), No Palpabale Mass: (All Quadrants), No Distention: (All Quadrants), No Rigidity: (All Quadrants) Images - Lower Extremities Lower Extremities: 1 - Cellulitis and chronic edema 2 - Chronic edema 3 - Superficial ulcer Lower Ext Problem Progress - Results Reviewed by me Xrays/CTs/US Reviewed by me: Yes Discussed with Radiologist: Yes Radiology Findings: Venous duplex ultrasound of both legs shows occlusion of left saphenous vein Lab Results Reviewed by Me: Yes (2 blood cultures drawn) CBC and BMP: 06/03/18 04:32 06/03/18 04:32 Lab Results:: Laboratory Results 06/02/18 06/02/18 06/02/18 08:59 08:59 08:59 WBC 9.00 RBC 3.96 L Hgb 11.9 L Hct 35.8 L MCV 90.4 H MCH 30.1 MCHC 33.2 RDW Std Deviation 49.3 RDW Coeff of Roxanne 15.2 H Plt Count 121 L MPV 11.4 Immature Gran % (Auto) 0.2 Neut % (Auto) 81.2 H Lymph % (Auto) 9.7 L [place] % (Auto) 7.0 Eos % (Auto) 1.7 Baso % (Auto) 0.2 Immature Gran # (Auto) 0.02 Neut # (Auto) 7.31 Lymph # (Auto) 0.87 [place] # (Auto) 0.63 Eos # (Auto) 0.15 Baso # (Auto) 0.02 WBC Morphology Comment Normal morphology Plt Morphology Comment Normal morphology RBC Morph Comment Normal morphology PT 13.1 H INR 1.31 D-Dimer 0.98 H VBG pH VBG pCO2 VBG HCO3 VBG Base Excess Sodium 133 L Potassium 3.6 L Chloride 98 Carbon Dioxide 24 Anion Gap 11 BUN 16 Creatinine 0.9 Estimated GFR > 60 BUN/Creatinine Ratio 17.77 Glucose 102 Calculated Osmolality 276.0 Lactic Acid Calcium 8.5 L Magnesium 2.1 Total Bilirubin 2.6 H AST 28 ALT 11 L Alkaline Phosphatase 110 Total Creatine Kinase 31 L C-Reactive Protein 25.1 H Total Protein 7.9 Albumin 3.7 Globulin 4.2 H Albumin/Globulin Ratio 0.80 L 06/02/18 06/02/18 08:59 09:21 WBC RBC Hgb Hct MCV MCH MCHC RDW Std Deviation RDW Coeff of Roxanne Plt Count MPV Immature Gran % (Auto) Neut % (Auto) Lymph % (Auto) [place] % (Auto) Eos % (Auto) Baso % (Auto) Immature Gran # (Auto) Neut # (Auto) Lymph # (Auto) [place] # (Auto) Eos # (Auto) Baso # (Auto) WBC Morphology Comment Plt Morphology Comment RBC Morph Comment PT INR D-Dimer VBG pH 7.66 H VBG pCO2 23 L VBG HCO3 25 VBG Base Excess 5 H Sodium Potassium Chloride Carbon Dioxide Anion Gap BUN Creatinine Estimated GFR BUN/Creatinine Ratio Glucose Calculated Osmolality Lactic Acid 2.2 H Calcium Magnesium Total Bilirubin AST ALT Alkaline Phosphatase Total Creatine Kinase C-Reactive Protein Total Protein Albumin Globulin Albumin/Globulin Ratio EKG Interpreted/Reviewed By Me:: Yes (poor R-wave progression in anterior leads) EKG Interpretation:: POSITIVE: Normal Sinus Rhythm, Normal Rate, Normal Intervals, Normal ST/T. NEGATIVE: Normal [place], Normal QRS (4 R-wave progression anteriorly) - Patient's Progress Pain Medication Addressed: POSITIVE: No School/Work Release Addressed: POSITIVE: Not Applicable Re-Examine Time: 10:55 Re-Examine Comment: Results of laboratory studies reviewed with patient. Patient admitted by hospitalist for further evaluation and treatment. Status: POSITIVE: Unchanged, Re-Examined - Consult Consult (If Yes, Name of Consulting MD & Time Called): Yes (Dr. Gutierrez, hospitalist [id number],) Consulting MD will see pt:: [place] [facility] [place] Counseled: POSITIVE: Patient, Family (), RE: Lab Results, RE: DX, RE: Need for F/U Patient Care Time - Estimated PCT Patient Care Time (In Minutes): 55 Vital Signs - VS Reviewed Vital Signs Reviewed: Yes Discharge Clinical Impression: Cellulitis, Lymphedema Discharge Disposition: Admit to Inpatient Condition: Fair Date Decision to Admit to Inpatient: 06/02/18 Time Decision to Admit to Inpatient: 10:40
[2018-06-03] MEDS: Lactated Ringers 1,000 ML PRIMARY IV SCH ×2 (08:00→14:11)
[2018-06-03] MEDS: ACETAMINOPHEN 325 MG TABLET PO PRN ×2 (08:04→18:32)
[2018-06-03] MEDS: VENLAFAXINE HCL XR 150 MG CAP PO SCH (08:42)
[2018-06-03] MEDS: POTASSIUM CHLORIDE 20 MEQ TAB PO SCH ×2 (08:42→21:20)
[2018-06-03] MEDS: Apixaban 5 MG TABLET PO SCH ×2 (08:42→21:20)
[2018-06-03] MEDS ORDERED: NIACIN 500 MG PO SCH (09:00)
[2018-06-03] MEDS ORDERED: Ertapenem Inj 1 GM in Sodium Chloride 0.9% 100 ML IV SCH (11:00)
--- NOTE | 2018-06-03 11:51 | PTI REPORT ---
Thank you for the referral of Codey Sarmiento. He was seen on 06/02/18 for an inpatient evaluation secondary to cellulitis and generalized weakness. SUBJECTIVE: The patient is a 57-year-old male who states that over the last couple of days he has had an onset of excruciating back pain along with dizziness and nausea. He does have a wound on his left lower extremity which he has been dealing with for quite some time and has been doing Wednesday, Wednesday, Wednesday dressing changes down in therapy. He states that he noticed that his leg was getting redder and that he was developing a fever. The patient has been diagnosed with cellulitis and has been placed on IV antibiotics which has started to help alleviate some of his symptoms. The patient states he has had multiple hospitalizations and/or ER visits within the last few months with very similar symptoms. He states that back in January he was placed on a skilled nursing antibiotic; he is not sure if that is contributing to any of the symptoms. Overall he feels that he takes one step forward with his health, as he is trying to lose weight and do some yoga, and then a few steps backwards as he does have these flare ups with the cellulitis in his leg and is having difficulty with any wound healing on the left side and with his general health as well. The patient does live here in [place] with his who also works at the hospital. He ambulates without the use of an assistive device and denies any recent falls. PAST MEDICAL HISTORY: Past medical history can be found in the patient's medical record. OBJECTIVE FINDINGS: General observations: The patient was alert and oriented to setting upon PT arrival. The patient was in bed and did have an IV in place. The patient does have two wounds on his left lateral lower extremity. The superior wound measures 4.1 centimeters x 2.3 centimeters and is superficial in nature. It is approximately 75% slough tissue and 25% granulation tissue. The bottom wound measures 1.7 centimeters x 3.0 centimeters and presents with the same appearance as the one on the top with very minimal drainage noted. The patient's whole left lower extremity is red and warm to the touch. He also does have some blisters just inferior to the patellar region. Adaptic was placed over the wounds and the patient's lower extremity was wrapped with Unna-boot, Kerlix, and Coban. Bed mobility/Transfers: The patient was able to transfer from bed to stand safely and independently. Ambulation: The patient is able to ambulate independent of assistance. ASSESSMENT: The patient has fair rehab potential secondary to his overall health and difficulties with wound healing. Problem List: Left lower extremity wounds/Cellulitis Short-Term Goals: To be met by discharge from inpatient: Patient will promote sterile wound healing. Long-Term Goals: To be met following discharge from inpatient: Wound care is to be continued once the patient is discharged from the hospital. TREATMENT PLAN: Patient will be seen on a PRN basis for wound care in order to keep the wound clean and dry and to facilitate wound healing. The patient is doing well with his mobility and strength and is continuing with exercises while he is in the hospital. We will see him strictly for wound care at this time. INITIAL TREATMENT: Treatment today consisted of the initial evaluation followed by one unit of dressing. Please see objective findings. MTDD
--- NOTE | 2018-06-03 12:16 | OTI REPORT ---
Thank you for the referral of Codey Sarmiento. He was seen on 06/02/18 for an occupational therapy inpatient evaluation secondary to cellulitis and weakness. SUBJECTIVE: The patient is a 57-year-old male who is being seen secondary to having an episode of cellulitis of the left leg. The patient reports that since January he has been on a manager terminal antibiotic. Every month he has an episode where this leg ends up giving him difficulty. He reports he is feeling extremely exhausted and fatigued. He states "every muscle screams" at times. He reports he mainly gets pain at night in his left knee, his arms, and his shoulder. His back gives him some difficulty but is fine. Recently the patient has been doing more yoga and getting more mobility in. He states four days ago he felt really good, but then he became increasingly painful and his leg became increasingly worse. He does have L4-L5 pain. He states sometimes his pain gets so bed he gets extremely nauseated and he almost spins from the pain. He has not had any falls. The patient is thinking about talking to Dr. Gutierrez about going to [place] to get a procedure done with his arterial system with the left lower extremity. PAST MEDICAL HISTORY: Past medical history can be found in the patient's medical record. OBJECTIVE FINDINGS: Bed mobility: The patient was able to come from supine to sit independently. Range of motion: The patient has within functional limits for upper extremity active range of motion. Strength: Upper extremity strength is 4+/5 bilaterally. Activities of daily living: The patient is able to dress himself. The patient has been trying to stay active. He is obese and has been trying to work on his weight with diet and exercise; however, he still has difficulty with this. Transfers: The patient is able to complete all functional transfers with stand by assist. ASSESSMENT: The patient is demonstrating enough independence to not have skilled occupational therapy. He demonstrates good active range of motion and strength in bilateral upper extremities. His functional transfers are stand by assist. Overall his mobility and ADLs are good; he just has a pretty severe wound that physical therapy will be addressing. It is highly recommended that the patient discuss further options as he has been dealing with this wound and his leg for several months now. Occupational Therapy Goals: To be met following discharge from inpatient: Patient will continue to demonstrate independence with ADLs and functional transfers. If need be, we can reassess him at a later date. TREATMENT PLAN: The patient is not demonstrating a need for skilled occupational therapy. The patient will be discharged from OT services. He will continue with skilled care for his wound and cellulitis needs of the left lower extremity. INITIAL TREATMENT: Treatment today consisted of the initial evaluation activities only. FLORENCIO
[2018-06-03] MEDS: FUROSEMIDE 40 MG TABLET PO SCH (14:21)
--- NOTE | 2018-06-03 15:50 | PT.PROG ---
Progress Note Progress Note: S. patient stated he is feeling alright, he reports some soreness with his leg but not bad. O. Patient had wound re dressed with adaptic covering open area then unna boot, kirlex and coban. A. Patient tolerated wound redressing well, no drainage noted at this time. P. Continue POC.
[2018-06-03] MEDS ORDERED: POTASSIUM CHLORIDE 20 MEQ TAB PO ONE (16:44)
[2018-06-03] MEDS ORDERED: ceFAZolin Inj 2 GM in Sodium Chloride 0.9% 100 ML IV SCH (16:45)
--- NOTE | 2018-06-03 16:51 | PDOC(PROG) ---
Date of Service: 06/03/18 Time of Service: 16:45 Interval History: patient seen, evaluated with RN in room. discussed with RN and patient. no chest pain. no SOB, no nausea or vomiting. feeling better, but frustrated--third recurrent cellulitis in LLE with need for admission. has been on prophylactic amoxicillin. states he was down to 380 lbs, but every cellulitis, his weight jumps up with fluid retention. working out much more at home. Objective : Data - Labs CBC and BMP: 06/03/18 04:32 06/03/18 04:32 Additional Lab Results: 06/03/18 04:32 Total Bilirubin 1.5 H AST 22 ALT 11 L Alkaline Phosphatase 104 Total Protein 6.8 Albumin 3.2 L Globulin 3.6 Albumin/Globulin Ratio 0.80 L Objective : Exam - General General Appearance: No Acute Distress, Cooperative Additional General Exam Details: Vital Signs - Last Taken Temperature 97.8 F 06/03/18 12:03 Pulse Rate 75 06/03/18 15:00 Respiratory Rate 20 06/03/18 12:03 Blood Pressure 126/73 06/03/18 12:03 Pulse Ox 94 06/03/18 12:03 - Eye Eye Exam: No Scleral Icterus - ENT ENT Exam: Mucous Membranes Moist - Neck Neck Exam: JVP is not Raised - Respiratory Respiratory Exam: Clear to Auscultation - Bilaterally, Breathing Non Labored - Cardiovascular Cardiovascular Exam: RRR, No Murmur, No Clicks, No Gallops, No Rubs, No JVD - GI/Abdominal GI/Abdominal Exam: Normal Bowel Sounds, Non Tender, Non Distended, Soft - Extremities Extremities Exam: +3 Edema (left lower extremity predominantly, erythema, tender to palpation, left side only right side looks normal.) - Neurological Neurological Exam: Alert, Oriented x 3, No Facial Droop, Speech Intact / Clear, Moves All Extremities Equally Assessment and Plan - Patient Problems (1) Cellulitis of left leg Current Visit: Yes Status: Acute Code(s): L03.116 - Cellulitis of left lower limb (2) VTE (venous thromboembolism) Current Visit: Yes Status: Acute Code(s): I82.90 - Acute embolism and thrombosis of unspecified vein (3) Obstructive sleep apnea Current Visit: Yes Status: Chronic Code(s): G47.33 - Obstructive sleep apnea (adult) (pediatric) (4) Lymphedema Current Visit: Yes Status: Chronic Code(s): I89.0 - Lymphedema, not elsewhere classified (5) Morbid obesity Current Visit: No Status: Chronic Onset Date: 03/10/11 Code(s): E66.01 - Morbid (severe) obesity due to excess calories (6) Depression, major, in remission Current Visit: Yes Status: Acute Onset Date: 11/05/15 Code(s): F32.5 - Major depressive disorder, single episode, in full remission (7) Polyclonal hypergammaglobulinemia Current Visit: Yes Status: Acute Code(s): D89.0 - Polyclonal hypergammaglobulinemia - Assessment / Plan Additional Assessment/Plan Details: seems more depressed than I have seen him in past, patient denies. weight down about 5 pounds from recent office visit cellulitis looks more purulent this time, MRSA screen is negative. change antibiotics to ancef. will likely need ID follow up. I think we need to think of more aggressive measures for weight loss. discuss with patient daily during hospital stay. review therapy for polyclonal hypergammaglobinemia continue eliquis for VTE (chronic) check iron in AM
[2018-06-03] MEDS: CHOLECALCIFEROL 1000 IU TABLET PO SCH (18:16)
[2018-06-03] MEDS: ceFAZolin Inj 2gm (Premix) 2 GM/50 ML BAG IV SCH (18:17)
[2018-06-04] MEDS: ceFAZolin Inj 2gm (Premix) 2 GM/50 ML BAG IV SCH ×3 (01:42→18:01)
[2018-06-04 05:07] LABS: BASOPHILS # (AUTO) 0.01 10*3/UL; BASOPHILS % (AUTO) 0.3 % (0-1); EOSINOPHILS # (AUTO) 0.11 10*3/UL; Hematocrit [HCT] 33.4 % (42.0-52.0); Hemoglobin [HGB] 10.8 g/dL (14.0-18.0); LYMPHOCYTES # (AUTO) 0.47 10*3/uL; MEAN CORPUSCULAR HEMOGLOBIN 29.6 PG (27-31); MEAN CORPUSCULAR HGB CONC 32.3 g/dL (33-37); MEAN CORPUSCULAR VOLUME 91.5 FL (80-90); MEAN PLATELET VOLUME 11.1 FL (7.4-12.2); MONOCYTES # (AUTO) 0.32 10*3/UL (0.3-0.8); MONOCYTES % (AUTO) 8.6 % (5-15); NEUTROPHILS # (AUTO) 2.78 10*3/UL; NEUTROPHILS % (AUTO) 74.9 % (50-80); RED BLOOD COUNT 3.65 10^6/uL (4.70-6.10)
[2018-06-04 05:25] LABS: BLOOD UREA NITROGEN 14 mg/dL (7-22); PLATELET MORPHOLOGY COMMENT NORMAL MORPHOLOGY (NORM); RBC MORPHOLOGY COMMENT NORMAL MORPHOLOGY (NORM); WBC MORPHOLOGY COMMENT NORMAL MORPHOLOGY (NORM)
[2018-06-04] MEDS: FUROSEMIDE 40 MG TABLET PO SCH ×2 (06:17→13:39)
[2018-06-04] MEDS: VENLAFAXINE HCL XR 150 MG CAP PO SCH (08:05)
[2018-06-04] MEDS: Apixaban 5 MG TABLET PO SCH ×2 (08:05→20:07)
[2018-06-04] MEDS: ASCORBIC ACID Chewable 500 MG TABLET PO SCH (08:06)
[2018-06-04] MEDS: POTASSIUM CHLORIDE 20 MEQ TAB PO SCH ×2 (08:06→20:07)
[2018-06-04] MEDS: ACETAMINOPHEN 325 MG TABLET PO PRN (08:10)
[2018-06-04] MEDS ORDERED: VITAMIN B COMPLEX PO SCH (09:00)
--- NOTE | 2018-06-04 19:13 | PDOC(PROG) ---
Date of Service: 06/04/18 Time of Service: 19:08 Interval History: patient seen, evaluated earlier today. no chest pain. no shortness of breath no nausea or vomiting. left lower extremity is less painful. Objective : Data - Labs CBC and BMP: 06/04/18 04:55 06/04/18 04:55 Additional Lab Results: blood cultures remain negative. Objective : Exam - General General Appearance: No Acute Distress, Cooperative Additional General Exam Details: Vital Signs - Last Taken Temperature 97.9 F 06/04/18 16:44 Pulse Rate 64 06/04/18 16:44 Respiratory Rate 12 06/04/18 16:44 Blood Pressure 100/58 06/04/18 16:44 Pulse Ox 96 06/04/18 16:44 - Eye Eye Exam: No Scleral Icterus - ENT ENT Exam: Mucous Membranes Moist - Neck Neck Exam: JVP is not Raised - Respiratory Respiratory Exam: Clear to Auscultation - Bilaterally, Breathing Non Labored - Cardiovascular Cardiovascular Exam: RRR, No Murmur, No Clicks, No Gallops, No Rubs, No JVD - GI/Abdominal GI/Abdominal Exam: Normal Bowel Sounds, Non Tender, Non Distended, Soft - Extremities Extremities Exam: No Clubbing Present, No Cyanosis Present, +2 Edema (in left lower extremity, worse proximal to the knee.) - Neurological Neurological Exam: Alert, Oriented x 3, No Facial Droop, Speech Intact / Clear, Moves All Extremities Equally Assessment and Plan - Patient Problems (1) Cellulitis of left leg Current Visit: Yes Status: Acute Code(s): L03.116 - Cellulitis of left lower limb (2) VTE (venous thromboembolism) Current Visit: Yes Status: Acute Code(s): I82.90 - Acute embolism and thrombosis of unspecified vein (3) Lymphedema Current Visit: Yes Status: Chronic Code(s): I89.0 - Lymphedema, not elsewhere classified (4) Obstructive sleep apnea Current Visit: Yes Status: Chronic Code(s): G47.33 - Obstructive sleep apnea (adult) (pediatric) (5) Morbid obesity Current Visit: No Status: Chronic Onset Date: 03/10/11 Code(s): E66.01 - Morbid (severe) obesity due to excess calories (6) Depression, major, in remission Current Visit: Yes Status: Acute Onset Date: 11/05/15 Code(s): F32.5 - Major depressive disorder, single episode, in full remission (7) Polyclonal hypergammaglobulinemia Current Visit: Yes Status: Acute Code(s): D89.0 - Polyclonal hypergammaglobulinemia - Assessment / Plan Additional Assessment/Plan Details: pancytopenic on labs--I reviewed platelets and WBC. they normalize outside of infections. anemia and iron deficiency anemia are back--not sure if this is consumptive. colonoscopy negative in 2017. likely to be a bone marrow issue. will try to discuss with heme/onc after the holiday, request follow up. may benefit from bone marrow biopsy--question some myelodysplastic syndrome. polyclonal gammopathy could be infection related. . . continue ancef, antibiotics, day #3. I think a 14 day course of IV antibiotics makes sense. hopeful for discharge in a day or two. continued to encourage diet, exercise lifestyle changes-- patient has worked hard on this. labs in AM
[2018-06-05] MEDS: MORPHINE SULFATE 2 MG/1 ML IVP PRN (00:43)
[2018-06-05] MEDS: ceFAZolin Inj 2gm (Premix) 2 GM/50 ML BAG IV SCH ×3 (01:13→17:42)
[2018-06-05 05:09] LABS: BASOPHILS # (AUTO) 0.01 10*3/UL; BASOPHILS % (AUTO) 0.3 % (0-1); EOSINOPHILS % (AUTO) 3.1 % (0-8); Hematocrit [HCT] 33.4 % (42.0-52.0); Hemoglobin [HGB] 10.7 g/dL (14.0-18.0); LYMPHOCYTES # (AUTO) 0.51 10*3/uL; MEAN CORPUSCULAR HEMOGLOBIN 29.4 PG (27-31); MEAN CORPUSCULAR VOLUME 91.8 FL (80-90); MONOCYTES # (AUTO) 0.23 10*3/UL (0.3-0.8); MONOCYTES % (AUTO) 7.2 % (5-15); NEUTROPHILS % (AUTO) 71.9 % (50-80); RED BLOOD COUNT 3.64 10^6/uL (4.70-6.10)
[2018-06-05 05:13] LABS: PLATELET MORPHOLOGY COMMENT NORMAL MORPHOLOGY (NORM); RBC MORPHOLOGY COMMENT NORMAL MORPHOLOGY (NORM); WBC MORPHOLOGY COMMENT NORMAL MORPHOLOGY (NORM)
[2018-06-05 05:21] LABS: BLOOD UREA NITROGEN 14 mg/dL (7-22)
[2018-06-05] MEDS: FUROSEMIDE 40 MG TABLET PO SCH ×2 (07:23→14:29)
[2018-06-05] MEDS: ASCORBIC ACID Chewable 500 MG TABLET PO SCH (08:40)
[2018-06-05] MEDS: VENLAFAXINE HCL XR 150 MG CAP PO SCH (08:40)
[2018-06-05] MEDS: POTASSIUM CHLORIDE 20 MEQ TAB PO SCH ×2 (08:40→20:10)
[2018-06-05] MEDS: Apixaban 5 MG TABLET PO SCH ×2 (08:40→20:10)
[2018-06-05] MEDS ORDERED: HYDROcodone-APAP 5 MG -325 MG TABLET PO PRN (16:59)
--- NOTE | 2018-06-05 17:01 | PDOC(PROG) ---
Date of Service: 06/05/18 Time of Service: 16:57 Interval History: seen, evaluated earlier today. no chest pain, SOB, nausea or vomiting. left leg erythema, pain reduced per patient Objective : Data - Labs CBC and BMP: 06/05/18 04:46 06/05/18 04:46 Objective : Exam - General General Appearance: No Acute Distress, Cooperative Additional General Exam Details: Vital Signs - Last Taken Temperature 97 F 06/05/18 16:53 Pulse Rate 67 06/05/18 16:53 Respiratory Rate 20 06/05/18 16:53 Blood Pressure 114/72 06/05/18 16:53 Pulse Ox 92 06/05/18 16:53 - Eye Eye Exam: No Scleral Icterus - ENT ENT Exam: Mucous Membranes Moist - Neck Neck Exam: JVP is not Raised - Respiratory Respiratory Exam: Clear to Auscultation - Bilaterally, Breathing Non Labored - Cardiovascular Cardiovascular Exam: RRR, No Murmur, No Clicks, No Gallops, No Rubs, No JVD - GI/Abdominal GI/Abdominal Exam: Normal Bowel Sounds, Non Tender, Non Distended, Soft - Extremities Extremities Exam: No Clubbing Present, No Cyanosis Present, +2 Edema (left lower extremity, especially proximal to knee. unna boot in place) - Neurological Neurological Exam: Alert, Oriented x 3, No Facial Droop, Speech Intact / Clear, Moves All Extremities Equally Assessment and Plan - Patient Problems (1) Cellulitis of left leg Current Visit: Yes Status: Acute Code(s): L03.116 - Cellulitis of left lower limb (2) VTE (venous thromboembolism) Current Visit: Yes Status: Acute Code(s): I82.90 - Acute embolism and thrombosis of unspecified vein (3) Lymphedema Current Visit: Yes Status: Chronic Code(s): I89.0 - Lymphedema, not elsewhere classified (4) Obstructive sleep apnea Current Visit: Yes Status: Chronic Code(s): G47.33 - Obstructive sleep apnea (adult) (pediatric) (5) Morbid obesity Current Visit: No Status: Chronic Onset Date: 03/10/11 Code(s): E66.01 - Morbid (severe) obesity due to excess calories (6) Depression, major, in remission Current Visit: Yes Status: Acute Onset Date: 11/05/15 Code(s): F32.5 - Major depressive disorder, single episode, in full remission (7) Polyclonal hypergammaglobulinemia Current Visit: Yes Status: Acute Code(s): D89.0 - Polyclonal hypergammaglobulinemia - Assessment / Plan Additional Assessment/Plan Details: I still think patient needs IV antibiotics. will discuss with ID in clinic tomorrow, arrange follow up, outpatient antibiotics? arrange HEme/onc follow up stop morphine, start hydrocodone PRN pain in leg [facility] clinic info to patient labs in AM consider iron replacement.
[2018-06-05] MEDS: ACETAMINOPHEN 325 MG TABLET PO PRN (20:10)
[2018-06-05] MEDS: CHOLECALCIFEROL 1000 IU TABLET PO SCH (20:10)
[2018-06-06] MEDS: ceFAZolin Inj 2gm (Premix) 2 GM/50 ML BAG IV SCH ×2 (01:04→09:10)
[2018-06-06] MEDS: FUROSEMIDE 40 MG TABLET PO SCH (06:58)
[2018-06-06 07:28] VITALS: BP 110/45; RESP 18; TEMP 97.4; O2SAT 94
[2018-06-06] MEDS: VENLAFAXINE HCL XR 150 MG CAP PO SCH (09:09)
[2018-06-06] MEDS: POTASSIUM CHLORIDE 20 MEQ TAB PO SCH (09:10)
[2018-06-06] MEDS: ASCORBIC ACID Chewable 500 MG TABLET PO SCH (09:10)
[2018-06-06] MEDS: Apixaban 5 MG TABLET PO SCH (09:10)
--- NOTE | 2018-06-06 10:24 | DCSUMMARY ---
Hospitalization Summary Admit Date: 06/02/2018 Discharge Date: 06/06/18 Primary Diagnosis:: left lower extremity cellulitis Hospital Course: This very pleasant 57-year-old male who has had recurrent left lower extremity cellulitis in the setting of morbid obesity. He was admitted, with recurrent cellulitis and venous stasis ulcers in the left lower extremity on 2018. He was placed initially on Invanz. I did de-escalate therapy to Ancef 2 g IV every 8 hours. He responded well in terms of decrease in his pain, his erythema did mayela some and his ulcers looked a little better on the left lateral leg. He was managed with an Unna boot with physical therapy. We are able to get him in with infectious disease on the date of discharge in the afternoon. He has been on Ancef, and today is day 4 of antibiotic therapy. I think he will likely need a prolonged IV course but I will defer this to infectious disease. A couple of other issues we noted. The patient has chronic lymphedema and we got him some information on some lymphedema clinics [place]. I don't know if it will help prevent cellulitis but the patient is interested in pursuing this and I think it's very reasonable. We also noted that the patient was pancytopenic during the hospital stay. He has iron deficiency anemia again. I do not think he absorbs oral iron and he will likely need an IV iron therapy. I'll try to discuss with his primary physician. His pancytopenia in terms of the white blood cell counts and platelets seem to be worse in the setting of his infections as he has several normal platelet studies and white blood cell studies outside of the timing of his infections. We also did note that with protein electrophoresis studies done back in 2018, the patient has a polyclonal hypergammaglobulinemia, but this could be in the setting of infection. However, with iron deficiency anemia and has been persistent, I think that it patient would probably benefit from bone marrow biopsy and further evaluation with hematology/oncology. Today, leg pain is better. No chest pain, no shortness breath. No fevers. Assessment and Plan: 1. As per discharge assessments noted 2. Disposition: Patient is discharged home. 3. Condition on discharge, stable and improved. 4. Diet: regular diet 5. Activities: resume normal activities 6. Follow-Up: 1. Follow-up with [facility] today 2. Primary care physician in one week 7. Medications at the Time of Discharge: Home Medications Medication Instructions Recorded Confirmed Type Apixaban [Eliquis] 5 mg PO BID 03/24/17 06/02/18 History multivitamin tablet 1 tab PO QDAY ea 04/07/17 06/02/18 History venlafaxine ER 150 mg 150 mg PO QDAY #90 cap 09/13/17 06/02/18 Rx capsule,extended release 24 hr potassium chloride ER 20 mEq 20 meq PO BID #180 tab 02/01/18 06/02/18 Rx tablet,extended release(part/cryst) furosemide 40 mg tablet 40 mg PO BID #180 tab 03/01/18 06/02/18 Rx amoxicillin 500 mg tablet 500 mg PO BID 03/29/18 06/02/18 History Ascorbic Acid [Vitamin C] 1,000 mg PO DAILY 06/02/18 06/02/18 History Cholecalciferol [Vitamin D3] 1,000 iu PO Q48H 06/02/18 06/02/18 History Vitamin B Complex 1 tab PO DAILY 06/02/18 06/02/18 History HYDROcodone/APAP 5/325 Tab [Michael 1 tab PO Q6H PRN #30 tab 06/06/18 Rx 5/325 Tab] 8. Time, care, counseling and coordination of care for this discharge is greater than 30 minutes. Exam - Vitals Vital Signs: Vital Signs Temperature 97.4 F Temperature Source Temporal Artery Scan Pulse Rate [Pulse Oximeter] 69 Pulse Rate [Pulse Oximeter 67 Left] Pulse Rate 70 Respiratory Rate 18 Blood Pressure [Right Arm] 110/45 Blood Pressure [Left Arm] 113/77 Pulse Ox 94 Oxygen Delivery Method Room Air Height 6 ft 1 in Weight 417 lb - General General Appearance: No Acute Distress, Cooperative - Head Head Exam: Normal Inspection, Normocephalic, Atraumatic - Eye Eye Exam: POSITIVE: No Scleral Icterus - ENT ENT Exam: POSITIVE: Mucous Membranes Moist - Neck Neck Exam: JVP is not Raised - Respiratory Respiratory Exam: POSITIVE: Clear to Auscultation - Bilaterally, Breathing Non Labored - Cardiovascular Cardiovascular Exam: POSITIVE: RRR, No Murmur, No Clicks, No Gallops, No Rubs, No JVD - GI/Abdominal GI/Abdominal Exam: POSITIVE: Normal Bowel Sounds, Non Tender, Non Distended, Soft - Extremities Extremities Exam: POSITIVE: No Clubbing Present, No Cyanosis Present, +2 Edema (mostly in left upper thigh, erythema noted, ulcers look better, not tender to palpation.) - Neurological Neurological Exam: POSITIVE: Alert, Oriented x 3, No Facial Droop, Speech Intact / Clear, Moves All Extremities Equally Data Peritnent Studies: 06/03/18 06/04/18 06/05/18 04:32 04:55 04:46 WBC 3.20 L Hgb 10.7 L Hct 33.4 L Plt Count 124 L Sodium Potassium Chloride Carbon Dioxide Anion Gap BUN Creatinine BUN/Creatinine Ratio Glucose Calculated Osmolality Calcium Iron 25 L TIBC 210 L % Saturation 11.9 L Total Bilirubin 1.5 H AST 22 ALT 11 L Alkaline Phosphatase 104 Total Protein 6.8 Albumin 3.2 L Globulin 3.6 Albumin/Globulin Ratio 0.80 L 06/05/18 04:46 WBC Hgb Hct Plt Count Sodium 138 Potassium 4.1 Chloride 101 Carbon Dioxide 25 Anion Gap 12 BUN 14 Creatinine 0.8 BUN/Creatinine Ratio 17.50 Glucose 92 Calculated Osmolality 286.0 Calcium 8.1 L Iron TIBC % Saturation Total Bilirubin AST ALT Alkaline Phosphatase Total Protein Albumin Globulin Albumin/Globulin Ratio Procedures: [address] [facility] [place] [address] PH: DD: [phone] FAX: [phone] ~DIAGNOSTIC IMAGING REPORT~ --- Patient: JackieprabhjotCodey : 1960 Sex: M Age: 57 Exam Name: US Veins, UE/LE Bilat Exam Date: 06/02/18 Report # : [id number] CPT Code: 62869 EMR/MR #: [id number] Ordering: KRISTY DYSON Admiting: VIRA BEAR MD. Primary: Ozzy Tobin MD Attending: VIRA BEAR MD. Signed VENOUS DOPPLER ULTRASOUND OF BOTH LOWER EXTREMITIES, 06/02/2018 9:31 AM: Clinical History: Lower leg swelling. Previous Exam: 03/24/2017 for the right leg. 01/14/2018 for the left leg. Technique: 2D real-time imaging and color Doppler ultrasound with compression and augmentation maneuvers. Deep Venous System: Normal deep venous system from groin to popliteal fossa bi laterally. Due to the patient's body habitus, the deep femoral veins bilaterally could not be visualized. Superficial Venous System: Normal right greater saphenous vein. The left greater saphenous vein is clotted in the mid thigh to the lower leg. Soft Tissues: There is edema in the subcutaneous fat bilaterally from the mid thigh distally. Readin. Negative venous Doppler ultrasound of both lower extremities for deep vein thrombosis. Neither profunda femoral vein was visualized due to the patient's body habitus. 2. The right greater saphenous vein is patent. The left greater saphenous vein is occluded from the mid to distal thigh to the lower leg. Dictated By: 06/02/18 1146 ALEXIA WALKER MD. Signed By: 06/02/18 1154 ALEXIA WALKER MD. Patient Problems - Patient Problem List (1) Cellulitis of left leg Current Visit: Yes Status: Acute Code(s): L03.116 - Cellulitis of left lower limb Category: Medical (2) VTE (venous thromboembolism) Current Visit: Yes Status: Acute Code(s): I82.90 - Acute embolism and thrombosis of unspecified vein Category: Medical (3) Lymphedema Current Visit: Yes Status: Chronic Code(s): I89.0 - Lymphedema, not elsewhere classified Category: Medical (4) Obstructive sleep apnea Current Visit: Yes Status: Chronic Code(s): G47.33 - Obstructive sleep apnea (adult) (pediatric) Category: Medical (5) Morbid obesity Current Visit: No Status: Chronic Onset Date: 03/10/11 Code(s): E66.01 - Morbid (severe) obesity due to excess calories Category: Medical (6) Depression, major, in remission Current Visit: Yes Status: Acute Onset Date: 11/05/15 Code(s): F32.5 - Major depressive disorder, single episode, in full remission Category: Medical (7) Polyclonal hypergammaglobulinemia Current Visit: Yes Status: Acute Code(s): D89.0 - Polyclonal hypergammaglobulinemia Category: Medical
--- NOTE | 2018-06-06 14:32 | OT AM DAY ---
Diagnosis : Cellulitis/Weakness AM - Occupational Therapy S: The patient reports he is doing well. He is hoping to go home today. O: The previous dressing was removed by nursing staff prior to the patient's shower. The wound was cleansed with wound cleanser and was dressed with Adaptic, Unna-boot, Kerlix, and Coban. All dressing supplies were provided by physical therapy. Minimal drainage was present per nursing report. A: The patient tolerated today's treatment well. P: Continue seeing patient BID during the week and one time per day over the weekend until discharge. MTDD
== END 2018-06-06 11:26 | disposition home or self-care (01) | DRG 603 ==
LOC: ER 08:22 → MED/SURG 11:35
PROVIDERS: ADMIT Internal Medicine; ATTEND Internal Medicine